=== PATIENT | male | born 1940 | race Caucasian/White ===

== ENCOUNTER 2019-06-01 00:58 | Observation (INO) | payer OTHER ==
--- OUTSIDE RECORDS SUMMARY | 2019-06-01 01:00 | XMS REPORT ---
:1940 [facility] Address [address] [place] [id number] Care Team Providers Name Role Phone Unavailable Unavailable Unavailable Problems This patient has no known problems. Allergies, Adverse Reactions, Alerts This patient has no known allergies or adverse reactions. Medications This patient has no known medications.
[2019-06-01] MEDS ORDERED: NA CHLORIDE 0.9% 1,000 ML ONE (01:22)
[2019-06-01 01:58] LABS: Protime INR 0.96
[2019-06-01 02:09] LABS: Absolute Lymphocytes (CBC) 0.6 K/uL (0.7-4.9); Basophils % 0.3 % (0-1.3); Lymphocytes % 3.7 % (15.3-44.8); MPV 8.9 fL (7.6-11.3)
[2019-06-01 02:11] LABS: ALT/SGPT 50 U/L (12-78); AST/SGOT 20 U/L (15-37); Albumin 3.7 g/dL (3.4-5.0); Alkaline Phosphatase 58 U/L (45-117); BUN Blood Urea Nitrogen 24 mg/dL (7-18); Bicarbonate 23 mmol/L (21-32); Bilirubin Direct 0.2 mg/dL (0-0.2); Bilirubin Total 0.7 mg/dL (0.2-1.0); Glucose Level 141 mg/dL (74-106); Lipase 411 U/L (73-393); Magnesium 1.8 mg/dL (1.8-2.4); NT PRO-BNP 126 pg/mL (<450); Protein, Total 7.4 g/dL (6.4-8.2); Sodium Level 139 mmol/L (136-145); Troponin (Emerg Dept Use Only) < 0.02 ng/mL (0.0-0.045)
[2019-06-01] MEDS ORDERED: METRONIDAZOLE 500mg IVPB 500 MG/100 ML BAG IV ONE (02:54)
[2019-06-01] MEDS ORDERED: CEFTRIAXONE/SWI 1gm 1 GM/10 ML SYR ONE (02:54)
[2019-06-01] MEDS ORDERED: CIPROFLOXACIN 400mg IV 400 MG/200 ML BAG IV ONE (02:54)
--- NOTE | 2019-06-01 03:44 | ER ---
Nurse's Notes [facility] Name: Vincenzo Mosquera Age: 78 yrs Sex: Male : 1940 Arrival Date: 06/01/2019 Time: 01:00 Bed 8 Private MD: Diagnosis: Abdominal tenderness;Unspecified kidney failure;Elevated white blood cell count;Vomiting;Diarrhea, unspecified;Diverticular disease of intestine;Diverticulosis of large intestine without perforation or abscess without bleeding Presentation: 05/31 01:04 Chief complaint: EMS states: WITH HISTORY OF DIVERTICULITIS. COMPLAINING OF ABDOMINAL rv PAIN, NAUSEA, VOMITING, AND DIARRHEA. GIVEN ZOFRAN BY EMT. PAIN SCALE DECREASED TO 2/10 UPON ARRIVAL. Coronavirus screen: Patient denies fever greater than 100.4F, cough, shortness of breath, or difficulty breathing. Proceed with normal triage process. Ebola Screen: No symptoms or risks identified at this time. Initial Sepsis Screen: Does the patient meet any 2 criteria? No. Patient's initial sepsis screen is negative. Does the patient have a suspected source of infection? No. Patient's initial sepsis screen is negative. Risk Assessment: Do you want to hurt yourself or someone else? Patient reports no desire to harm self or others. Onset of symptoms was May 31, 2019 at 21:00. 01:04 Method Of Arrival: EMS: [facility] 01:04 Acuity: MARIA EUGENIA 3 rv Triage Assessment: 01:07 General: Appears in no apparent distress. comfortable, Behavior is calm, cooperative. rv Pain: Complains of pain in abdomen Pain currently is 2 out of 10 on a pain scale. EENT: No signs and/or symptoms were reported regarding the EENT system. Neuro: Level of Consciousness is awake, alert, obeys commands, Oriented to person, place, time, situation. Cardiovascular: Patient's skin is warm and dry. Respiratory: Airway is patent. GI: Abdomen is round distended, Bowel sounds present X 4 quads. Abdomen is tender to palpation. Derm: Skin is intact. Historical: - Allergies: 01:07 No Known Allergies; rv - Home Meds: 02:31 metoprolol tartrate 50 mg Oral tab 1 tab once daily [Active]; simvastatin 20 mg Oral lp1 tab 1 tab once daily [Active]; omeprazole 20 mg Oral cpDR 1 cap once daily [Active]; pioglitazone 15 mg Oral tab 1 tab once daily [Active]; losartan 50 mg oral tab 1 tab nightly [Active]; gabapentin 100 mg Oral cap 1 cap nightly [Active]; pilocarpine HCl 5 mg oral tab 1 tab twice a day [Active]; aspirin 81 mg Oral TbEC 1 tab twice a day [Active]; Centrum Silver oral oral daily [Active]; Cinnamon 500 mg oral cap 2 cap twice a day [Active]; magnesium oxide 500 mg Oral tab nightly [Active]; glucosamine-chondroitin oral oral twice a day [Active]; CoQ-10 100 mg oral cap twice a day [Active]; coconut oil 1,000 mg oral cap twice a day [Active]; Fish Oil 1,000 mg oral cap twice a day [Active]; Vitamin D3 5,000 unit oral tab daily [Active]; - PMHx: 01:07 Diabetes - NIDDM; Hyperlipidemia; Hypertension; neuropathy; PROSTATE CANCER; rv Diverticulitis; - PSHx: 01:07 None; rv - Immunization history:: Adult Immunizations up to date. - Social history:: Smoking status: Patient/guardian denies using tobacco, the patient reports quitting approximately 30 years ago. - Family history:: not pertinent. Screenin:09 Abuse screen: Denies threats or abuse. Denies injuries from another. Nutritional rv screening: No deficits noted. Tuberculosis screening: No symptoms or risk factors identified. Fall Risk None identified. Assessment: 01:08 Reassessment: SEE TRIAGE NOTES. rv 01:39 Reassessment: finished oral contrast at 138am. rv 03:28 Reassessment: CT SCAN OF THE ABDOMEN DONE. AWAITING RESULT. PATIENT UPDATED ON THE rv BLOOD TEST RESULTS. 04:42 Reassessment: Patient appears in no apparent distress at this time. Patient and/or rv family updated on plan of care and expected duration. Pain level reassessed. Patient is alert, oriented x 3, equal unlabored respirations, skin warm/dry/pink. UPDATED ON THE PLAN OF ADMISSION. PATIENT AGREED. 07:25 Reassessment: Patient appears in no apparent distress at this time. Patient and/or em family updated on plan of care and expected duration. Pain level reassessed. Patient is alert, oriented x 3, equal unlabored respirations, skin warm/dry/pink. Patient denies pain at this time. Patient states symptoms have improved. Vital Signs: 01:04 BP 160 / 64; Pulse 80; Resp 19; Temp 99; Pulse Ox 98% on R/A; Weight 90.72 kg; Height 5 rv ft. 9 in. (175.26 cm); Pain 2/10; 01:35 BP 148 / 66; Pulse 77; Resp 18; Pulse Ox 99% ; rr5 02:00 BP 159 / 63; Pulse 86; Resp 19; Pulse Ox 99% on R/A; rv 02:30 BP 136 / 59; Pulse 76; Resp 21; Pulse Ox 98% on R/A; rv 03:00 BP 151 / 61; Pulse 73; Resp 18; Pulse Ox 97% on R/A; rv 04:00 BP 105 / 79; Pulse 77; Resp 18; Pulse Ox 98% on R/A; rv 06:56 BP 135 / 73; Pulse 80; Resp 18; Temp 98.6; Pulse Ox 98% on R/A; rv 07:25 BP 139 / 85; Pulse 70; Resp 16; Temp 97.8; Pulse Ox 100% on R/A; Pain 0/10; em 01:04 Body Mass Index 29.53 (90.72 kg, 175.26 cm) rv ED Course: 01:00 Patient arrived in ED. ds1 01:01 Antonio Doss, RN is Primary Nurse. rv 01:06 Triage completed. rv 01:07 Arm band placed on Patient placed in the treatment room, on a stretcher, on cardiac rv monitor, on pulse oximetry, Patient notified of wait time. 01:09 Placed in gown. Bed in low position. Call light in reach. Pulse ox on. NIBP on. rv 01:09 Maintain EMS IV. Dressing intact. Good blood return noted. Site clean \T\ dry. Gauge \T\ rv site: 22 G LEFT HAND. 01:13 Naif Willard MD is Attending Physician. jet 01:30 Inserted saline lock: 20 gauge in right forearm, using aseptic technique. Blood rr5 collected. 01:30 EKG done, by ED staff, reviewed by Naif Willard MD. rr5 02:34 XRAY Chest (1 view) In Process Unspecified. EDMS 03:21 Abdomen In Process Unspecified. EDMS 03:38 Rola Orozco MD is Hospitalizing Provider. jet 07:35 No provider procedures requiring assistance completed. Patient admitted, IV remains in em place. Administered Medications: 01:30 Drug: NS 0.9% 500 ml Route: IV; Rate: bolus; Site: right forearm; rr5 02:45 Follow up: IV Status: Completed infusion; IV Intake: 500ml rv 02:30 Drug: NS 0.9% 1000 ml Route: IV; Rate: 125 ml/hr; Site: right forearm; rr5 07:48 Follow up: IV Status: Completed infusion; IV Intake: 1000ml em 02:50 Drug: Rocephin 1 grams Route: IV; Rate: per protocol; Site: right forearm; rv 04:42 Follow up: IV Status: Completed infusion rv 06:57 Follow up: Response: No adverse reaction rv 02:55 Drug: Cipro 400 mg Volume: 200 ml; Route: IVPB; Infused Over: 60 mins; Site: right rv forearm; 04:41 Follow up: IV Status: Completed infusion; IV Intake: 200ml rv 03:04 Drug: Flagyl 500 mg Volume: 100 ml; Route: IVPB; Rate: 200 ml/hr; Infused Over: 30 rv mins; Site: left hand; 04:42 Follow up: IV Status: Completed infusion; IV Intake: 100ml rv 06:58 Follow up: Response: No adverse reaction rv Intake: 02:45 IV: 500ml; Total: 500ml. rv 04:41 IV: 200ml; Total: 700ml. rv 04:42 IV: 100ml; Total: 800ml. rv 07:48 IV: 1000ml; Total: 1800ml. em Outcome: 03:41 Decision to Hospitalize by Provider. jet 07:48 Admitted to Tele accompanied by tech, via wheelchair, room 230, with chart, Report em called to USHA CHRISTENSEN 07:48 Condition: good 07:48 Instructed on the need for admit, Demonstrated understanding of instructions. 07:56 Patient left the ED. em Signatures: Dispatcher [employer] Naif Borja MD MD cha Munoz, Edgar, RN RN em Abby Chand ds1 Lisa Bradley RN RN lp1 Antonio Doss RN RN rv Rodrigo Farley RN RN rr5 Corrections: (The following items were deleted from the chart) 06:57 06:57 IV Status: Completed infusion rv rv
--- NOTE | 2019-06-01 03:44 | EDPHYS ---
Physician Documentation [facility] Name: Vincenzo Mosquera Age: 78 yrs Sex: Male : 1940 Arrival Date: 06/01/2019 Time: 01:00 Bed 8 Private MD: ED Physician Naif Willard HPI: 05/31 01:19 This 78 yrs old Male presents to ER via EMS with complaints of Abdominal Pain.[facility] 01:19 The patient presents with abdominal pain in the lower abdomen, abdominal distention in jet the upper abdomen, in the lower abdomen. Onset: The symptoms/episode began/occurred 2 day(s) ago. The symptoms radiate to both flanks. Associated signs and symptoms: none. The symptoms are described as crampy. Modifying factors: The symptoms are alleviated by nothing, the symptoms are aggravated by nothing. Severity of pain: At its worst the pain was mild in the emergency department the pain is unchanged. The patient has not experienced similar symptoms in the past. Historical: - Allergies: :07 No Known Allergies; rv - Home Meds: 02:31 metoprolol tartrate 50 mg Oral tab 1 tab once daily [Active]; simvastatin 20 mg Oral lp1 tab 1 tab once daily [Active]; omeprazole 20 mg Oral cpDR 1 cap once daily [Active]; pioglitazone 15 mg Oral tab 1 tab once daily [Active]; losartan 50 mg oral tab 1 tab nightly [Active]; gabapentin 100 mg Oral cap 1 cap nightly [Active]; pilocarpine HCl 5 mg oral tab 1 tab twice a day [Active]; aspirin 81 mg Oral TbEC 1 tab twice a day [Active]; Centrum Silver oral oral daily [Active]; Cinnamon 500 mg oral cap 2 cap twice a day [Active]; magnesium oxide 500 mg Oral tab nightly [Active]; glucosamine-chondroitin oral oral twice a day [Active]; CoQ-10 100 mg oral cap twice a day [Active]; coconut oil 1,000 mg oral cap twice a day [Active]; Fish Oil 1,000 mg oral cap twice a day [Active]; Vitamin D3 5,000 unit oral tab daily [Active]; - PMHx: 01:07 Diabetes - NIDDM; Hyperlipidemia; Hypertension; neuropathy; PROSTATE CANCER; rv Diverticulitis; - PSHx: 01:07 None; rv - Immunization history:: Adult Immunizations up to date. - Social history:: Smoking status: Patient/guardian denies using tobacco, the patient reports quitting approximately 30 years ago. - Family history:: not pertinent. ROS: 01:19 Constitutional: Negative for fever, chills, and weight loss, Eyes: Negative for injury, jet pain, redness, and discharge, ENT: Negative for injury, pain, and discharge, Neck: Negative for injury, pain, and swelling, Cardiovascular: Negative for chest pain, palpitations, and edema, Respiratory: Negative for shortness of breath, cough, wheezing, and pleuritic chest pain, Back: Negative for injury and pain, : Negative for injury, bleeding, discharge, and swelling, MS/Extremity: Negative for injury and deformity, Skin: Negative for injury, rash, and discoloration, Neuro: Negative for headache, weakness, numbness, tingling, and seizure, Psych: Negative for depression, anxiety, suicide ideation, homicidal ideation, and hallucinations, Allergy/Immunology: Negative for hives, rash, and allergies, Endocrine: Negative for neck swelling, polydipsia, polyuria, polyphagia, and marked weight changes. 01:19 Abdomen/GI: Positive for abdominal pain, of the posterior aspect of left lateral abdomen, posterior aspect of right lateral abdomen, right lower quadrant and left lower quadrant. Exam: 01:19 Constitutional: This is a well developed, well nourished patient who is awake, alert, jet and in no acute distress. Head/Face: Normocephalic, atraumatic. Eyes: Pupils equal round and reactive to light, extra-ocular motions intact. Lids and lashes normal. Conjunctiva and sclera are non-icteric and not injected. Cornea within normal limits. Periorbital areas with no swelling, redness, or edema. ENT: Nares patent. No nasal discharge, no septal abnormalities noted. Tympanic membranes are normal and external auditory canals are clear. Oropharynx with no redness, swelling, or masses, exudates, or evidence of obstruction, uvula midline. Mucous membranes moist. Neck: Trachea midline, no thyromegaly or masses palpated, and no cervical lymphadenopathy. Supple, full range of motion without nuchal rigidity, or vertebral point tenderness. No Meningismus. Chest/axilla: Normal chest wall appearance and motion. Nontender with no deformity. No lesions are appreciated. Cardiovascular: Regular rate and rhythm with a normal S1 and S2. No gallops, murmurs, or rubs. Normal PMI, no JVD. No pulse deficits. Respiratory: Lungs have equal breath sounds bilaterally, clear to auscultation and percussion. No rales, rhonchi or wheezes noted. No increased work of breathing, no retractions or nasal flaring. Abdomen/GI: Soft, non-tender, with normal bowel sounds. No distension or tympany. No guarding or rebound. No evidence of tenderness throughout. Male : Normal genitalia with no discharge or lesions. Skin: Warm, dry with normal turgor. Normal color with no rashes, no lesions, and no evidence of cellulitis. MS/ Extremity: Pulses equal, no cyanosis. Neurovascular intact. Full, normal range of motion. Neuro: Awake and alert, GCS 15, oriented to person, place, time, and situation. Cranial nerves II-XII grossly intact. Motor strength 5/5 in all extremities. Sensory grossly intact. Cerebellar exam normal. Normal gait. Psych: Awake, alert, with orientation to person, place and time. Behavior, mood, and affect are within normal limits. 01:19 Back: pain, that is mild, that is moderate, ROM is normal, normal spinal alignment noted, CVA tenderness, is absent, vertebral tenderness, is not appreciated, muscle spasm, is not present. Vital Signs: 01:04 BP 160 / 64; Pulse 80; Resp 19; Temp 99; Pulse Ox 98% on R/A; Weight 90.72 kg; Height 5 rv ft. 9 in. (175.26 cm); Pain 2/10; 01:35 BP 148 / 66; Pulse 77; Resp 18; Pulse Ox 99% ; rr5 02:00 BP 159 / 63; Pulse 86; Resp 19; Pulse Ox 99% on R/A; rv 02:30 BP 136 / 59; Pulse 76; Resp 21; Pulse Ox 98% on R/A; rv 03:00 BP 151 / 61; Pulse 73; Resp 18; Pulse Ox 97% on R/A; rv 04:00 BP 105 / 79; Pulse 77; Resp 18; Pulse Ox 98% on R/A; rv 06:56 BP 135 / 73; Pulse 80; Resp 18; Temp 98.6; Pulse Ox 98% on R/A; rv 07:25 BP 139 / 85; Pulse 70; Resp 16; Temp 97.8; Pulse Ox 100% on R/A; Pain 0/10; em 01:04 Body Mass Index 29.53 (90.72 kg, 175.26 cm) rv MDM: 01:13 Patient medically screened. [facility] 01:21 Data reviewed: vital signs, nurses notes, lab test result(s), EKG, radiologic studies, [facility] CT scan, plain films. 05/31 01:14 Order name: Basic Metabolic Panel; Complete Time: 02:38 [facility] 05/31 01:14 Order name: CBC with Diff; Complete Time: 06:36 [facility] 05/31 01:14 Order name: LFT's; Complete Time: 02:38 [facility] 05/31 01:14 Order name: Magnesium; Complete Time: 02:38 [facility] 05/31 01:14 Order name: NT PRO-BNP; Complete Time: 02:38 [facility] 05/31 01:14 Order name: PT-INR; Complete Time: 02:38 [facility] 05/31 01:14 Order name: Troponin (emerg Dept Use Only); Complete Time: 02:38 [facility] 05/31 01:14 Order name: XRAY Chest (1 view) [facility] 05/31 01:14 Order name: Lipase; Complete Time: 02:38 [facility] 05/31 01:14 Order name: Urine Culture [facility] 05/31 02:12 Order name: Urine Dipstick--Ancillary (enter results); Complete Time: 06:36 mw2 05/31 02:28 Order name: Manual Differential; Complete Time: 06:36 EDAK 05/31 06:35 Order name: Comprehensive Metabolic Panel [facility] 05/31 06:35 Order name: Comprehensive Metabolic Panel [facility] 05/31 01:14 Order name: EKG; Complete Time: 01:17 [facility] 05/31 01:14 Order name: Cardiac monitoring; Complete Time: 01:23 [facility] 05/31 01:14 Order name: EKG - Nurse/Tech; Complete Time: 01:39 [facility] 05/31 01:14 Order name: IV Saline Lock; Complete Time: 01:23 [facility] 05/31 01:14 Order name: Labs collected and sent; Complete Time: 01:45 [facility] 05/31 01:14 Order name: O2 Per Protocol; Complete Time: 01:23 [facility] 05/31 01:14 Order name: O2 Sat Monitoring; Complete Time: 01:23 [facility] 05/31 02:48 Order name: Abdomen [facility] 05/31 06:37 Order name: CONS Pharmacy Consult [facility] 05/31 06:37 Order name: Clear Liquid [facility] 05/31 01:14 Order name: Urine Dipstick-Ancillary (obtain specimen); Complete Time: 02:46 [facility] Administered Medications: 01:30 Drug: NS 0.9% 500 ml Route: IV; Rate: bolus; Site: right forearm; rr5 02:45 Follow up: IV Status: Completed infusion; IV Intake: 500ml rv 02:30 Drug: NS 0.9% 1000 ml Route: IV; Rate: 125 ml/hr; Site: right forearm; rr5 07:48 Follow up: IV Status: Completed infusion; IV Intake: 1000ml em 02:50 Drug: Rocephin 1 grams Route: IV; Rate: per protocol; Site: right forearm; rv 04:42 Follow up: IV Status: Completed infusion rv 06:57 Follow up: Response: No adverse reaction rv 02:55 Drug: Cipro 400 mg Volume: 200 ml; Route: IVPB; Infused Over: 60 mins; Site: right rv forearm; 04:41 Follow up: IV Status: Completed infusion; IV Intake: 200ml rv 03:04 Drug: Flagyl 500 mg Volume: 100 ml; Route: IVPB; Rate: 200 ml/hr; Infused Over: 30 rv mins; Site: left hand; 04:42 Follow up: IV Status: Completed infusion; IV Intake: 100ml rv 06:58 Follow up: Response: No adverse reaction rv Disposition: 06/01/19 03:41 Hospitalization ordered by Rola Orozco for Inpatient Admission. Preliminary diagnosis are Abdominal tenderness, Unspecified kidney failure, Elevated white blood cell count, Vomiting, Diarrhea, unspecified, Diverticular disease of intestine, Diverticulosis of large intestine without perforation or abscess without bleeding. - Bed requested for Telemetry/MedSurg (Inpatient). - Status is Inpatient Admission. em - Condition is Fair. - Problem is new. - Symptoms have improved. Signatures: Dispatcher [employer] Naif Borja MD MD cha Munoz, Edgar RN RN em Lisa Bradley RN RN lp1 Naomie Boudreaux RN RN tl1 Naif Longo, PA PA cp Antonio Doss, RN RN rv Rodrigo Farley RN RN rr5 Corrections: (The following items were deleted from the chart) 02:47 01:17 Abdomen Pelvis W Con+CT.RAD.BRZ ordered. EDAK EDAK 04:36 03:41 Hospitalization Ordered by Rola Orozco MD for Inpatient Admission. Preliminary jet diagnosis is Abdominal tenderness; Unspecified kidney failure; Elevated white blood cell count; Vomiting; Diarrhea, unspecified. Bed requested for Telemetry/MedSurg (Inpatient). Status is Inpatient Admission. Condition is Fair. Problem is new. Symptoms have improved. jet 06:37 04:36 06/01/2019 03:41 Hospitalization Ordered by Rola Orozco MD for Inpatient tl1 Admission. Preliminary diagnosis is Abdominal tenderness; Unspecified kidney failure; Elevated white blood cell count; Vomiting; Diarrhea, unspecified; Diverticular disease of intestine; Diverticulosis of large intestine without perforation or abscess without bleeding. Bed requested for Telemetry/MedSurg (Inpatient). Status is Inpatient Admission. Condition is Fair. Problem is new. Symptoms have improved. jet 07:56 06:37 06/01/2019 03:41 Hospitalization Ordered by Rola Orozco MD for Inpatient em Admission. Preliminary diagnosis is Abdominal tenderness; Unspecified kidney failure; Elevated white blood cell count; Vomiting; Diarrhea, unspecified; Diverticular disease of intestine; Diverticulosis of large intestine without perforation or abscess without bleeding. Bed requested for Telemetry/MedSurg (Inpatient). Status is Inpatient Admission. Condition is Fair. Problem is new. Symptoms have improved. tl1
[2019-06-01 03:49] LABS: Blood Morphology Comment NOT SEEN (NOT SEEN); Platelet Estimate ADEQ
[2019-06-01 03:58] LABS: Urine Blood NEGATIVE (NEG); Urine Glucose NEGATIVE (NEG); Urine Protein 1+ (NEG); Urine Specific Gravity >1.030 (1.005-1.030); Urine pH 5.5 (5.0-7.0)
[2019-06-01] MEDS ORDERED: MORPHINE 2 MG/ML SYR IV PRN (06:33)
[2019-06-01] MEDS ORDERED: ONDANSETRON 4 MG/2 ML VIAL IV PRN (06:33)
[2019-06-01] MEDS ORDERED: ACETAMINOPHEN 500 MG TAB PO PRN (06:33)
[2019-06-01] MEDS: NA CHLORIDE 0.9% 1,000 ML IV SCH ×2 (07:00→10:37)
--- NOTE | 2019-06-01 07:04 | RAD REPORT ---
EXAM DESCRIPTION: RAD - Chest Single View - 06/01/2019 2:31 am CLINICAL HISTORY: ABDOMINAL DISTENTION COMPARISON: PA chest August 2016 TECHNIQUE: AP portable chest image was obtained 06/01/2019 2:31 am . FINDINGS: Lung volumes are low accentuating heart, vasculature and lung markings. No peripheral cons olidation or mass identified. Hilar regions within normal limits. No significant failure or volume ov erload. The very low lung volumes accentuate vasculature and lung markings potentially masking minima l interstitial edema or infiltrate. All No measurable pleural effusion and no pneumothorax. No acute bony abnormality seen. No acute aortic findings suspected. IMPRESSION: No acute cardiopulmonary process. Very shallow inspiration potentially masks early interstitial edema or infiltrate.
--- NOTE | 2019-06-01 09:42 | RAD REPORT ---
EXAM DESCRIPTION: CT - Abdomen Pelvis Wo Contrast - 06/01/2019 6:35 am CLINICAL HISTORY: The patient is 78 years old and is Male; ABD PAIN TECHNIQUE: Axial computed tomography images of the abdomen and pelvis without intravenous contrast. Sagittal and coronal reformatted images were created and reviewed. This CT exam was performed usi ng one or more of the following dose reduction techniques: automated exposure control, adjustment o f the mA and/or kV according to patient size, and/or use of iterative reconstruction technique. exposure control, adjustment of the mA and/or kV according to patient size, and/or use of iterative r econstruction technique. COMPARISON: CT of the abdomen and pelvis August 27, 2016 FINDINGS: REX BASES:L Unremarkable. No mass. No consolidation. ABDOMEN: LIVER: The liver is enlarged and diffusely fatty. GALLBLADDER AND BILE DUCTS: No calcified stones. No ductal dilation. PANCREAS: Unremarkable. No ductal dilation. SPLEEN: Several splenic granuloma are present. ADRENALS: Unremarkable. No mass. KIDNEYS AND URETERS: Several right renal cysts are present, at least one of which is hyperdense. These are similar to prior exam. The largest measures 1.3 cm. No follow-up imaging is recommended. T here is no hydronephrosis or hydroureter of either kidney. No obstructing renal or ureteral calculus is seen. STOMACH AND BOWEL: Oral contrast is present within the stomach. Oral contrast is noted throughou t the small bowel which is normal in caliber. Oral contrast and stool is noted throughout the colon. No evidence of bowel obstruction. No significant bowel wall thickening. Colonic diverticulosis is not ed, without associated inflammatory changes to suggest diverticulitis. PELVIS: APPENDIX: The appendix is normal in caliber without surrounding inflammation. BLADDER: The bladder is moderately distended. No stones. REPRODUCTIVE: Unremarkable as visualized. ABDOMEN and PELVIS: INTRAPERITONEAL SPACE: Unremarkable. No free air. No significant fluid collection. BONES/JOINTS: Minimal degenerative change of the spine is present. SOFT TISSUES: The soft tissues are normal. VASCULATURE: Unremarkable. No abdominal aortic aneurysm. LYMPH NODES: Unremarkable. No enlarged lymph nodes. IMPRESSION: Colonic diverticulosis without evidence of diverticulitis. Chronic findings as above. Electronically signeE by: Bernie Finch MD 06/01/2019 3:30 AM CDT Due to temporary technical issues with the PACS/Fluency reporting system, reports are being signed by the in house radiologist as a courtesy to ensure prompt reporting. The interpreting radiologist is f ully responsible for the content of the report.
--- NOTE | 2019-06-01 10:03 | EKG ---
Test Date: 2019-06-01 Test Time: 01:29:10 Label Printer: RR MEASUREMENT RESULTS: Intervals: Rate: 75 AR: 134 QRSD: 68 QT: 382 QTc: 426 [place]: P: 39 AR: 134 QRS: 14 T: 31 INTERPRETIVE STATEMENTS: Normal sinus rhythm Minimal voltage criteria for LVH, may be normal variant Nonspecific ST abnormality Abnormal ECG Compared to ECG 10/17/2012 02:43:53 Left ventricular hypertrophy now present Right-axis deviation no longer present ST (T wave) deviation still present Electronically Signed On 06-01-19 10:02:51 CDT by Rios Christianson
[2019-06-01 10:37] VITALS: BMI 29.5
[2019-06-01 10:55] VITALS: O2SAT 100
--- NOTE | 2019-06-01 11:55 | P.HP ---
Certification for Inpatient Patient admitted to: Observation With expected LOS: <2 Midnights Patient will require the following post-hospital care: None Practitioner: I am a practitioner with admitting privileges, knowledge of patient current condition, hospital course, and medical plan of care. Services: Services provided to patient in accordance with Admission requirements found in Title 42 Section 412.3 of the Code of Federal Regulations Patient History Date of Service: 06/01/19 Reason for admission: Abdominal pain; intractable nausea; persistent diarrhea History of Present Illness: Patient is a 78-year-old gentleman who came to the hospital with persistent nausea and abdominal pain. Patient started having some diarrhea. This worsened throughout the day so he came into the hospital for further evaluation. In the emergency room patient was started on antiemetics and IV hydration. Patient has CT of the abdomen that did not reveal any significant pathology except for some diverticulosis but no diverticulitis. Patient will be admitted to the hospital for treatment of what appears to be a viral gastroenteritis. Will start patient on clear liquid diet later today. If he tolerates that then anticipate discharge home in the next 24-48 hours. Allergies No Known Allergies Allergy (Unverified 10/17/12 08:15) Home Medications: Gabapentin [Neurontin] 100 mg PO DAILY 06/01/19 Losartan Potassium [Cozaar] 50 mg PO DAILY 06/01/19 Metoprolol Succinate [Toprol Xl] 50 mg PO DAILY 06/01/19 Omeprazole 20 mg PO DAILY 06/01/19 Pilocarpine HCl 1 tab PO DAILY 06/01/19 Pioglitazone [Actos*] 1 tab PO DAILY 06/01/19 Simvastatin 20 mg PO DAILY 06/01/19 - Past Medical/Surgical History Has patient received pneumonia vaccine in the past: Yes -: Diverticulitis -: HTN -: DM -: Neuropathy -: Prostate Cancer -: Colon Polyps Past Surgical History: Patient denies surgical history - Family History Father Family History: Reviewed- Non-Contributory - Social History Smoking Status: Former smoker Alcohol use: No CD- Drugs: No Review of Systems 10-point ROS is otherwise unremarkable Physical Examination - Vital Signs Temperature: 98.1 F Blood Pressure: 165/72 Pulse: 67 Respirations: 18 Pulse Ox (%): 96 - Physical Exam General: Alert, In no apparent distress, Oriented x3 HEENT: Atraumatic, PERRLA, Mucous membr. moist/pink, EOMI, Sclerae nonicteric Neck: Supple, 2+ carotid pulse no bruit, No LAD, Without JVD or thyroid abnormality Respiratory: Clear to auscultation bilaterally, Normal air movement Cardiovascular: Regular rate/rhythm, Normal S1 S2, No murmurs Gastrointestinal: Normal bowel sounds, Soft and benign, Non-distended, Tenderness Musculoskeletal: No clubbing, No swelling, No tenderness Integumentary: No rashes Neurological: Normal gait, Normal speech, Normal strength at 5/5 x4 extr, Normal tone, Normal affect Lymphatics: No axilla or inguinal lymphadenopathy - Studies Laboratory Data (last 24 hrs) 06/01/19 01:30: PT 11.3, INR 0.96 06/01/19 01:30: WBC 15.2 H, Hgb 14.7, Hct 44.0, Plt Count 219 06/01/19 01:30: Sodium 139, Potassium 4.0, BUN 24 H, Creatinine 1.63 H, Glucose 141 H, Magnesium 1.8, Total Bilirubin 0.7, AST 20, ALT 50, Alkaline Phosphatase 58, Lipase 411 H Assessment & Plan - Problems (Diagnosis) (1) Abdominal pain Current Visit: Yes Status: Acute Qualifiers: Abdominal location: generalized Qualified Code(s): R10.84 - Generalized abdominal pain (2) Nausea without vomiting Current Visit: Yes Status: Acute (3) Diarrhea Current Visit: Yes Status: Acute (4) Hypertension Current Visit: Yes Status: Acute Qualifiers: Hypertension type: essential hypertension Qualified Code(s): I10 - Essential (primary) hypertension (5) Type 2 diabetes mellitus Current Visit: Yes Status: Acute Qualifiers: Diabetes mellitus correction insulin use: without manager terminal use (6) Diverticulosis Current Visit: Yes Status: Acute (7) History of prostate cancer Current Visit: Yes Status: Acute - Plan Plan: 1. IV fluids and IV antibiotics 2. Stool studies 3. Outpatient GI consultation 4. Pain control 5. Outpatient colonoscopy 6. Repeat abdominal film if pain worsens to rule out perforation 7. GI and DVT prophylaxis Discharge Plan: Home - Advance Directives Does patient have a Living Will: No Does patient have a Durable POA for Healthcare: No - Code Status/Comfort Care Code Status Assessed: Yes Code Status: Full Code Critical Care: No Time Spent Managing PTS Care (In Minutes): 40
--- NOTE | 2019-06-01 13:23 | P.DS ---
Admission Date: 06/01/19 Discharge Date: 06/03/19 Disposition: ROUTINE DISCHARGE Discharge Condition: GOOD Reason for Admission: Abdominal pain; intractable nausea; persistent diarrhea Consultations: None - Problems (1) Abdominal pain Status: Acute Qualifiers: Abdominal location: generalized Qualified Code(s): R10.84 - Generalized abdominal pain (2) Hypertension Status: Acute Qualifiers: Hypertension type: essential hypertension Qualified Code(s): I10 - Essential (primary) hypertension (3) Type 2 diabetes mellitus Status: Acute Qualifiers: Diabetes mellitus recruitment internship insulin use: without recruitment internship use Hospital Course: Mr. Mosquera is 78-year-old male who presented with persistent nausea, vomiting and mild diarrhea. Patient's initial evaluation included CT of the abdomen which did not reveal any significant pathology except for some diverticulosis without diverticulitis. He was treated supportively with antibiotics, IV fluid and pain medication. He did improve and now tolerating oral intake. He will benefit from further outpatient studies including colonoscopy. 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 He remains hemodynamically stable for discharge. Vital Signs/Physical Exam: Temp Pulse Resp BP Pulse Ox 98.1 F 67 18 165/72 H 96 06/01/19 11:55 06/01/19 11:55 06/01/19 11:55 06/01/19 11:55 06/01/19 11:55 General: Alert, In no apparent distress HEENT: Atraumatic, PERRLA, EOMI Neck: Supple, JVD not distended Respiratory: Clear to auscultation bilaterally, Normal air movement Cardiovascular: Regular rate/rhythm, Normal S1 S2 Gastrointestinal: Normal bowel sounds, No tenderness Musculoskeletal: No tenderness Integumentary: No rashes Neurological: Normal speech, Normal tone, Normal affect Lymphatics: No axilla or inguinal lymphadenopathy Laboratory Data at Discharge: WBC 15.2 K/uL (4.3-10.9) H 06/01/19 01:30 Hgb 14.7 g/dL (13.6-17.9) 06/01/19 01:30 Hct 44.0 % (39.6-49.0) 06/01/19 01:30 Plt Count 219 K/uL (152-406) 06/01/19 01:30 PT 11.3 SECONDS (9.5-12.5) 06/01/19 01:30 INR 0.96 06/01/19 01:30 Sodium 139 mmol/L (136-145) 06/01/19 01:30 Potassium 4.0 mmol/L (3.5-5.1) 06/01/19 01:30 BUN 24 mg/dL (7-18) H 06/01/19 01:30 Creatinine 1.63 mg/dL (0.55-1.3) H 06/01/19 01:30 Glucose 141 mg/dL (74-106) H 06/01/19 01:30 Magnesium 1.8 mg/dL (1.8-2.4) 06/01/19 01:30 Total Bilirubin 0.7 mg/dL (0.2-1.0) 06/01/19 01:30 AST 20 U/L (15-37) 06/01/19 01:30 ALT 50 U/L (12-78) 06/01/19 01:30 Alkaline Phosphatase 58 U/L (45-117) 06/01/19 01:30 Lipase 411 U/L (73-393) H 06/01/19 01:30 Home Medications: Gabapentin [Neurontin*] 100 mg PO DAILY 06/01/19 Losartan Potassium [Cozaar*] 50 mg PO DAILY 06/01/19 Metoprolol Succinate [Toprol Xl*] 50 mg PO DAILY 06/01/19 Omeprazole 20 mg PO DAILY 06/01/19 Pilocarpine HCl 1 tab PO DAILY 06/01/19 Pioglitazone [Actos*] 1 tab PO DAILY 06/01/19 Simvastatin 20 mg PO DAILY 06/01/19 Diet: ADA Activity: Ad evelio Followup: Tobin Mar MD [Primary Care Provider] - 1-2 Days (please call to make an appointment. )
[2019-06-01 15:33] VITALS: BP 161/79; TEMP 98.3
== END 2019-06-01 15:51 | disposition home or self-care (01) ==
LOC: ER 00:58 → ERHOLD 06:48 → 2ND 07:40
PROVIDERS: ADMIT Hospitalist; ATTEND Hospitalist
DX: R10.84 Generalized abdominal pain (principal); I10 Essential (primary) hypertension; E11.40 Type 2 diabetes mellitus with diabetic neuropathy, unspecified; R11.0 Nausea; R19.7 Diarrhea, unspecified; K57.30 Diverticulosis of large intestine without perforation or abscess without bleeding; E78.5 Hyperlipidemia, unspecified; Z79.82 Long term (current) use of aspirin; Z79.899 Other long term (current) drug therapy; Z87.891 Personal history of nicotine dependence; Z85.46 Personal history of malignant neoplasm of prostate
CPT/HCPCS: 96365; 96367; 96368; 93005; 87088; 85025; 80048; 36415; 83735; 85610; 80076; 81003; 84484; 83690; 83880; 74176; 71045; 99285; J0696; J7030 ×2; J0744; G0378 ×2; 87086

== ENCOUNTER 2020-07-21 19:43 | Inpatient (IN) | payer OTHER ==
--- OUTSIDE RECORDS SUMMARY | 2020-07-21 19:46 | XMS REPORT | Continuity of Care Document ---
:1940 Author Organization [facility] t Address [address] [place] [address] Care Team Providers Name Role Phone Asked, Pcp Primary Care Physician Unavailable Ivan DE LA PAZ Attending Clinician Unavailable Erin Washington MD. Attending Clinician Ignacio DE LA PAZ Attending Clinician Unavailable Ever Attending Clinician Unavailable Pob, Lab Main Attending Clinician Unavailable Doctor Unassigned, Name Attending Clinician Unavailable Payers Payer Name Policy Type Policy Effective Date Expiration Date Sour ce Number MEDICAREMEDICARE PART [id number] 2004 [place] vladimir A AND 00:00:00 Worship [id number] [place] AND [id number] [facility] od[facility] AND [id number]/-TatiCommerayo al Problems This patient has no known problems. Allergies, Adverse Reactions, Alerts This patient has no known allergies or adverse reactions. Social History Social Habit Start Date Stop Date Quantity Comments Source Exposure to Not sure [place] [facility] SARS-CoV-2 (event) Sex Assigned At [birth year] [facility] ethodist 00:00:00 00:00:00 Medications Ordered Filled Start Stop Current Ordering Indication Dosage Frequency Signature Comments Components Source Medication Medication Date Date Medication? Clinician (SIG) Name Name levoFLOXaci 2020- No 750mg QD Take 1 Sd gilbert n 3-30 04-04 tablet Methodi (Levaquin) 00:00: 23:59 ([address] 750 MG 00 :00 total) by tablet mouth daily for 5 days. Take one tablet the night before procedure, then morning of procedure until gone. Vital Signs Vital Name Observation Time Observation Value Comments Source Systolic blood 2020-05-24 14:22:00 172 mm[Hg] Johnto n Worship pressure Diastolic blood 2020-05-24 14:22:00 80 mm[Hg] Allie on Worship pressure Heart rate 2020-05-24 14:22:00 71 /min Carlos Morgan Respiratory rate 2020-05-24 14:22:00 16 /min John ton [facility] Oxygen saturation in 2020-05-24 14:22:00 98 /min Carlos Morgan Arterial blood by Pulse oximetry Body height 2020-05-24 14:01:00 175.3 cm Carlos Morgan Body weight 2020-05-24 14:01:00 87.544 kg Carlos Morgan BMI 2020-05-24 14:01:00 28.50 kg/m2 Carlos Morgan Procedures Procedure Date / Time Performed Performing Clinician [facility] e BIOPSY PROSTATE 2020-07-15 00:00:00 Lizy Washington odist US NEEDLE BIOPSY 2020-07-09 14:51:17 Lizy Washington Met sven MRI PROSTATE WWO 2020-05-24 16:00:00 Lizy Washington Met sven CONTRAST ESTIMATED GFR 2020-05-24 14:22:00 Lizy Washington odist POC CREATININE 2020-05-24 14:22:00 Lizy Washington odist POC GLUCOSE 2020-05-24 14:16:00 Lizy Washington odmariusz Plan of Care Planned Activity Planned Date Details Comments Source Future Scheduled 2020-10-06 INFLUENZA VACCINE Monalisa martinez W[facility] 00:00:00 [code = INFLUENZA VACCINE] Future Scheduled 1989-11-20 SHINGLES VACCINES (#1) H oniel W[facility] Test 00:00:00 [code = SHINGLES VACCINES (#1)] Future Scheduled 1951 COVID-19 VACCINE (1) Víctor cardenas W[facility] Test 00:00:00 [code = COVID-19 VACCINE (1)] Future Scheduled 1949-11-20 DIABETES: RETINAL EYE Ho vladimir W[facility] Test 00:00:00 EXAM [code = DIABETES: RETINAL EYE EXAM] Future Scheduled 1949-11-20 DIABETIC FOOT EXAM [place] [facility] 00:00:00 [code = DIABETIC FOOT EXAM] Future Scheduled 1945-11-20 65+ PNEUMOCOCCAL [place] Worship Test 00:00:00 VACCINE (1 of 4 - PCV13) [code = 65+ PNEUMOCOCCAL VACCINE (1 of 4 - PCV13)] Encounters Start End Encounter Admission Attending Care Care Encounter Source Date/Time Date/Time Type Type Clinicians Facility Department ID 2020-07-09 2020-07-09 Outpatient [place] [id number] [place] 00:00:00 00:00:00 LIZY 218 Method i 2020-05-24 2020-05-24 [facility] [id number] [place] 00:00:00 00:00:00 LIZY 525 Method i 2020-05-13 2020-05-13 [facility] [id number] [place] 00:00:00 00:00:00 LIZY 088 Method i 2019-06-07 2019-06-07 Grants Director Ricky Crane [facility] [place] [id number] 14:00:07 14:15:07 Visit Lab Main [place] [id number] [place] [id number] Rachel [id number] 2019-06-07 2019-06-07 Orders Doctor CHLOE [id number] 00:00:00 00:00:00 Only Unassigned, AMIE [id number] [place] [facility] [id number] Results Test Description Test Time Test Comments Results Result [facility] e Comments US Needle Biopsy Ultrasound/ MRI Víctor ston 5 guided Prostate Worship 13:05:58 Needle BiopsyDiagnosis Elevated PSA/ CAP Previous Bx: Malignant/ Patient is on A/S Findings: Prostate echogenicity: HeterogenousCalcifica tions: Large focal Measurements: Whole Gland AP Diamter: 3.1 cm. Trasverse: 4.6 cm. Length 4.0 cm. Total Volume 31 mL. Nodule none --------Ultrasound guided biopsies under local anesthesia: 12 Template Biopsies. 5 Additional Biopsies of MRI JAMEEL PI-RADS 5 midline and right . : Comments:Fusion guided prostate needle BX was performed by and procedure was tolerated very well. Total 17 cores were taken under local anesthesia 2% lidocaine 5 cc on each side. MRI Prostate Wwo 2020-05- Jose, [place] on Contrast [address] 16:57:27 Incoming - 05/24/2020 5:00 PM CDT EXAMINATION: MRI PROSTATE WWO CONTRASTCLINICAL HISTORY: 79 years Male R97.20 Elevated prostate specific antigen (PSA), Elevated PSACOMPARISON: None.TECHNIQUE: Using a pelvic phased array coil, multiplanar, multisequence MRI of the pelvis was performed with a prostate-specific protocol with and without contrast. Diffusion weighted images and dynamic contrast enhanced images were performed. The examination was performed using a 3T magnet. IMAGE QUALITY: The image quality is satisfactory.FINDINGS :1. Size: The prostate gland measures 5.1 x 3.8 x 4.1 cm. Calculated prostatic volume (ellipsoid model) is 33 cc. 2. Central gland: There is BPH involving the transition zone. Homogeneously T2 hypointense and relatively noncircumscribed fullness anteriorly at the base corresponding with restricted diffusion, measuring 1.8 x 1.6 cm (series 5 image 11) suspicious for malignancy (PI-RADS 5).3. Peripheral zone: There is diffuse T2 hypointensity throughout the gland. Subtle more focal T2 hypointense fullness posterolaterally at the right apex measuring 1.4 cm (series 5 image 15) shows borderline diffusion restriction and early enhancement, PI-RADS 4. Very subtle vague 8 mm T2 hypointense fullness posteriorly in the left midgland with mild hypointensity on ADC map (series 8 image 12) is equivocal, PI-RADS 3.4. Seminal vesicles: Normal.5. Extracapsular extension: None6: Bladder: Normal.7. Lymph nodes: No suspicious lymph nodes.8. Musculoskeletal: No focal marrow replacing abnormality.9. Other: Small right and trace left inguinal hernias contain fat. Sigmoid colon diverticulosis.IMPRES WAN:1.8 cm anterior base TZ (PI-RADS 5).1.4 cm posterolateral right apex PZ (PI-RADS 4).0.8 cm posterior left midgland PZ (PI-RADS 3).Overall PI-RADS score: 5 PI-RADS score: The presence of a significant prostate cancer is:PI-RADS 1: Very low (Highly unlikely)PI-RADS 2: Low (Unlikely)PI-RADS 3: Intermediate (Equivocal)PI-RADS 4: High (Likely)PI-RADS 5: Very High (Highly likely)(All PI-RADS 3, 4 and 5 lesions are marked in DynaCAD for possible fusion biopsy)[id number] H
[2020-07-21 20:29] LABS: Absolute Lymphocytes (CBC) 0.6 K/uL (0.7-4.9); Basophils % 0.3 % (0-1.3); Hematocrit 42.4 % (39.6-49.0); Lymphocytes % 3.8 % (15.3-44.8); MPV 8.3 fL (7.6-11.3); RBC Red Blood Cell Count 4.79 M/uL (4.33-5.43)
[2020-07-21 20:36] LABS: Albumin 3.6 g/dL (3.4-5.0); Bilirubin Direct 0.2 mg/dL (0-0.2); Bilirubin Total 0.8 mg/dL (0.2-1.0); Potassium 3.9 mmol/L (3.5-5.1); Protein, Total 6.9 g/dL (6.4-8.2)
[2020-07-21] MEDS ORDERED: ONDANSETRON 4 MG/2 ML VIAL ONE (20:43)
[2020-07-21] MEDS ORDERED: MORPHINE 4 MG/ML SYR ONE ×2 (20:43→21:49)
[2020-07-21] MEDS ORDERED: NA CHLORIDE 0.9% 500 ML ONE (20:43)
--- NOTE | 2020-07-21 21:19 | RAD REPORT ---
EXAM DESCRIPTION: CT - Abdomen Pelvis W Contrast - 07/21/2020 8:59 pm CLINICAL HISTORY: ABD PAIN COMPARISON: CT ABD PELVIS W CONTRAST dated 10/17/2012 TECHNIQUE: Biphasic, helical CT imaging of the abdomen and pelvis was performed following 100 ml non -ionic IV contrast. No oral contrast administered. All CT scans are performed using dose optimization technique as appropriate and may include automated exposure control or mA/KV adjustment according to patient size. FINDINGS: No suspicious findings in the lung bases. Liver shows diffuse fatty infiltration with no focal liver parenchymal lesion. Spleen and pancreas sh ow no suspicious findings. Gallbladder and biliary tree are also without suspicious finding. Symmetric renal function is seen with no hydronephrosis or suspicious renal mass. No pyelonephritis o r acute parenchymal process. No bladder abnormalities. No significant adrenal finding or change. Sully ent has multiple small benign cysts in the mid and lower pole of the right kidney. Stomach is distended by food. No gastric wall thickening or mass. Gastric outlet obstruction is not s uspected. Duodenum is normal in diameter. The jejunum and ileum are fluid-filled without dilatation, mass or focal abnormality seen. The appendix is normal. There is fluid present in colon from cecum to descending colon. Prominent diverticulosis is present without diverticulitis. No free air, free fluid or inflammatory stranding. No hernia, mass or bulky lymphadenopathy. Disc and bone degenerative changes are present. IMPRESSION: Ileus or diffuse gastroenteritis pattern. No obstruction, mass or focal bowel abnormalit y identified. Diffuse fatty infiltration of the liver.
[2020-07-21 21:21] LABS: SARS-COV-2 RT PCR NEGATIVE (NEGATIVE)
[2020-07-21] MEDS ORDERED: PROMETHAZINE INJ 25 MG/ML AMP ONE (21:49)
[2020-07-21 23:23] LABS: Blood Morphology Comment NOT SEEN (NOT SEEN); Platelet Estimate ADEQ
--- NOTE | 2020-07-22 00:42 | ER ---
Nurse's Notes [facility] Name: Vincenzo Mosquera Age: 79 yrs Sex: Male : 1940 Arrival Date: 07/21/2020 Time: 19:50 Bed 27 Private MD: Diagnosis: Ileus, unspecified;Diarrhea, unspecified;Vomiting, unspecified Presentation: 07/21 20:09 Chief complaint: Patient states: Abdominal pain and diarrhea since 1800 today. Patient aj1 states that he has a history of diverticulitis and this feels the same as his previous flare ups. Coronavirus screen: Client denies travel out of the [place] in the last 14 days. At this time, the client does not indicate any symptoms associated with coronavirus-19. Ebola Screen: Patient denies travel to an Ebola-affected area in the 21 days before illness onset. Initial Sepsis Screen: Does the patient meet any 2 criteria? No. Patient's initial sepsis screen is negative. Does the patient have a suspected source of infection? Yes: Acute abdominal pain. Risk Assessment: Do you want to hurt yourself or someone else? Patient reports no desire to harm self or others. Onset of symptoms was July 21, 2020 at 18:00. 20:09 Method Of Arrival: EMS aj1 20:09 Acuity: MARIA EUGENIA 3 aj1 Triage Assessment: 20:13 General: Appears in no apparent distress. uncomfortable, Behavior is calm, cooperative, aj1 appropriate for age. Pain: Complains of pain in abdomen Pain currently is 10 out of 10 on a pain scale. Neuro: Level of Consciousness is awake, alert, obeys commands. GI: Abdomen is round Reports lower abdominal pain, upper abdominal pain, diarrhea, nausea. Historical: - Allergies: 20:13 No Known Allergies; aj1 - Home Meds: 20:13 Centrum Silver Oral daily [Active]; aspirin 81 mg Oral TbEC 1 tab twice a day [Active]; aj1 Cinnamon 500 mg Oral cap 2 cap twice a day [Active]; magnesium oxide 500 mg Oral tab nightly [Active]; Super B Complex + C 150 mg oral tab daily [Active]; glucosamine-chondroitin Oral twice a day [Active]; CoQ-10 100 mg Oral cap twice a day [Active]; coconut oil 1,000 mg Oral cap twice a day [Active]; Fish Oil 1,000 mg Oral cap twice a day [Active]; Vitamin D3 5,000 unit Oral tab daily [Active]; prevagen daily [Active]; metoprolol tartrate 75 mg oral tab 1 tab once daily [Active]; simvastatin 20 mg Oral tab 1 tab once daily [Active]; omeprazole 20 mg Oral cpDR 1 cap once daily [Active]; pioglitazone 15 mg Oral tab 1 tab once daily [Active]; losartan 100 mg oral tab 1 tab once daily [Active]; gabapentin 100 mg Oral cap 1 cap nightly [Active]; pilocarpine HCl 5 mg Oral tab 1 tab twice a day [Active]; - PMHx: 20:13 Diabetes - NIDDM; Diverticulitis; Hyperlipidemia; Hypertension; neuropathy; Prostate aj1 Cancer; - Immunization history:: Adult Immunizations up to date. Screenin:15 Abuse screen: Denies threats or abuse. Denies injuries from another. Nutritional aj1 screening: No deficits noted. Tuberculosis screening: No symptoms or risk factors identified. Fall Risk IV access (20 points). Total Willis Fall Scale indicates No Risk (0-24 pts). Assessment: 20:15 General: Appears in no apparent distress. uncomfortable, Behavior is cooperative, aj1 restless. Pain: Complains of pain in abdomen Pain does not radiate. Pain currently is 10 out of 10 on a pain scale. Quality of pain is described as aching, sharp, Pain began 2 hours ago. Neuro: Level of Consciousness is awake, alert, obeys commands, Oriented to person, place, time, situation. Cardiovascular: Patient's skin is warm and dry. Respiratory: Airway is patent Respiratory effort is even, unlabored, Respiratory pattern is regular, symmetrical. GI: Abdomen is round Bowel sounds present X 4 quads. Abd is soft X 4 quads Abdomen is tender to palpation X 4 quads. Reports diarrhea, nausea. : No signs and/or symptoms were reported regarding the genitourinary system. EENT: No signs and/or symptoms were reported regarding the EENT system. Derm: No signs and/or symptoms reported regarding the dermatologic system. Skin is pink, warm \T\ dry. normal. Musculoskeletal: No signs and/or symptoms reported regarding the musculoskeletal system. Circulation, motion, and sensation intact. 21:15 Reassessment: Patient appears in no apparent distress at this time. Patient and/or aj1 family updated on plan of care and expected duration. Pain level reassessed. Patient states feeling better. Patient states symptoms have improved. 21:35 Reassessment: Patient states that his pain and nausea are coming back. Notified Erik Beltran NP. Order received. 22:05 Reassessment: Patient and/or family updated on plan of care and expected duration. Pain aj1 level reassessed. General: Appears in no apparent distress. comfortable, Behavior is calm, cooperative, appropriate for age. Neuro: Level of Consciousness is awake, alert, obeys commands, Oriented to person, place, time, situation. Cardiovascular: Patient's skin is warm and dry. Respiratory: Airway is patent Respiratory effort is even, unlabored, Respiratory pattern is regular, symmetrical. GI: Abdomen is round. Derm: Skin is pink, warm \T\ dry. normal. 22:15 Reassessment: Patient vomiting. Erik Beltran NP at bedside. At this time the plan of [facility] care is to monitor patient to see if Phenergan gives relief. 23:15 Reassessment: Patient appears in no apparent distress at this time. Patient and/or aj1 family updated on plan of care and expected duration. Pain level reassessed. Patient is alert, oriented x 3, equal unlabored respirations, skin warm/dry/pink. No vomiting since previous episode, notified Erik Beltran NP who will speak to the patient. 07/22 00:36 Reassessment: Patient is vomiting again. Erik Beltran NP aware and plans to admit [facility] patient. 00:52 Reassessment: Gregg Tierney NP at bedside to evaluate patient. [facility] 01:45 Reassessment: Patient and/or family updated on plan of care and expected duration. Pain aj1 level reassessed. General: Appears in no apparent distress. Behavior is calm, cooperative, appropriate for age. Neuro: Level of Consciousness is awake, alert, obeys commands, Oriented to person, place, time, situation. Cardiovascular: Patient's skin is warm and dry. Respiratory: Airway is patent Respiratory effort is even, unlabored, Respiratory pattern is regular, symmetrical. GI: Abdomen is round. Derm: Skin is pink, warm \T\ dry. normal. Musculoskeletal: Circulation, motion, and sensation intact. Vital Signs: 07/21 20:02 BP 159 / 63; Pulse 63; Resp 20; Temp 98.3; Pulse Ox 99% on R/A; dh4 21:00 BP 153 / 72; Pulse 72; Resp 16; Pulse Ox 98% on R/A; aj1 22:00 BP 155 / 68; Pulse 70; Resp 18; Pulse Ox 99% on R/A; aj1 23:00 BP 167 / 60; Pulse 71; Resp 18; Pulse Ox 100% on R/A; aj1 07/22 02:10 BP 158 / 65; Pulse 78; Resp 18; Pulse Ox 98% ; aj1 ED Course: 07/21 19:50 Patient arrived in ED. mw2 19:58 Brian Beltran NP is PHCP. pm1 19:58 Rolando Ford MD is Attending Physician. pm1 20:08 Yuli Smith, RN is Primary Nurse. aj1 20:10 Triage completed. aj1 20:13 Arm band placed on. aj1 20:15 Patient has correct armband on for positive identification. Bed in low position. Call aj1 light in reach. ekg monitor on. Pulse ox on. NIBP on. 20:15 No provider procedures requiring assistance completed. Maintain EMS IV. Dressing aj1 intact. Good blood return noted. Site clean \T\ dry. Gauge \T\ site: 20 g right AC. 21:00 CT Abd/Pelvis - IV Contrast Only In Process Unspecified. EDMS 07/22 00:42 Rodrigo Oliveira MD is Hospitalizing Provider. pm1 01:54 NGT: inserted 14 Fr. via left nare. verified placement of air over stomach, to aj1 intermittent suction. Returned gastric contents. Patient tolerated well. 09:49 Primary Nurse role handed off by Yuli Smith, RN sv Administered Medications: 07/21 20:40 Drug: NS 0.9% 500 ml Volume: 500 ml; Route: IV; Rate: 1 bolus; Site: right antecubital; aj1 20:41 Drug: morphine 4 mg {Note: RASS score 1, patient is restless.} Route: IVP; Site: right aj1 antecubital; 20:41 Drug: Zofran (Ondansetron) 4 mg Route: IVP; Site: right antecubital; aj1 21:50 Drug: morphine 4 mg Route: IVP; Site: right antecubital; aj1 21:51 Drug: Phenergan (promethazine) 12.5 mg Route: IVP; Site: right antecubital; aj1 07/22 01:55 Drug: Cipro (ciprofloxacin) 400 mg Volume: 200 ml; Route: IVPB; Infused Over: 60 mins; aj1 Site: right antecubital; 01:55 Drug: Flagyl (metroNIDAZOLE) 500 mg Volume: 100 ml; Route: IVPB; Rate: 200 ml/hr; aj1 Infused Over: 30 mins; Site: right antecubital; Outcome: 00:42 Decision to Hospitalize by Provider. pm1 18:18 Patient left the ED. sv Signatures: Dispatcher [employer] EDMS Yuli Smith RN RN aj1 Jackie Rosenbaum RN RN sv Marinas, Patrick, NP [employer] pm1 Kelly Verduzco 2 Lukas Quintero 4 Corrections: (The following items were deleted from the chart) 07/21 20:40 20:40 NS 0.9% 500 ml 500 ml IV at 1 bolus in left forearm 500 ml aj1 aj 22:06 22:04 Reassessment: Patient states that his pain and nausea are coming back. Notified aj1 Erik Beltran NP. Order received aj1
--- NOTE | 2020-07-22 00:43 | EDPHYS ---
Physician Documentation [facility] Name: Vincenzo Mosquera Age: 79 yrs Sex: Male : 1940 Arrival Date: 07/21/2020 Time: 19:50 Bed 27 Private MD: ED Physician Rolando Ford HPI: 07/21 21:06 This 79 yrs old Male presents to ER via EMS with complaints of Abdominal Pain.pm1 21:06 The patient presents with abdominal pain. Onset: The symptoms/episode began/occurred pm1 today. The symptoms do not radiate. Associated signs and symptoms: Pertinent positives: nausea, vomiting, and diarrhea, Pertinent negatives: chest pain, constipation, dysuria, fever, shortness of breath. The symptoms are described as crampy. Modifying factors: The symptoms are alleviated by nothing, the symptoms are aggravated by nothing. Severity of pain: in the emergency department the pain is unchanged. The patient has experienced a previous episode, feels similar to his prior diverticulitis. The patient has not recently seen a physician. Historical: - Allergies: 20:13 No Known Allergies; aj1 - Home Meds: 20:13 Centrum Silver Oral daily [Active]; aspirin 81 mg Oral TbEC 1 tab twice a day [Active]; aj1 Cinnamon 500 mg Oral cap 2 cap twice a day [Active]; magnesium oxide 500 mg Oral tab nightly [Active]; Super B Complex + C 150 mg oral tab daily [Active]; glucosamine-chondroitin Oral twice a day [Active]; CoQ-10 100 mg Oral cap twice a day [Active]; coconut oil 1,000 mg Oral cap twice a day [Active]; Fish Oil 1,000 mg Oral cap twice a day [Active]; Vitamin D3 5,000 unit Oral tab daily [Active]; prevagen daily [Active]; metoprolol tartrate 75 mg oral tab 1 tab once daily [Active]; simvastatin 20 mg Oral tab 1 tab once daily [Active]; omeprazole 20 mg Oral cpDR 1 cap once daily [Active]; pioglitazone 15 mg Oral tab 1 tab once daily [Active]; losartan 100 mg oral tab 1 tab once daily [Active]; gabapentin 100 mg Oral cap 1 cap nightly [Active]; pilocarpine HCl 5 mg Oral tab 1 tab twice a day [Active]; - PMHx: 20:13 Diabetes - NIDDM; Diverticulitis; Hyperlipidemia; Hypertension; neuropathy; Prostate aj1 Cancer; - Immunization history:: Adult Immunizations up to date. ROS: 21:06 Constitutional: Negative for fever, chills, and weight loss, Eyes: Negative for injury, pm1 pain, redness, and discharge, Cardiovascular: Negative for chest pain, palpitations, and edema, Respiratory: Negative for shortness of breath, cough, wheezing, and pleuritic chest pain. 21:06 Back: Negative for injury and pain, : Negative for injury, bleeding, discharge, and swelling, MS/Extremity: Negative for injury and deformity, Skin: Negative for injury, rash, and discoloration, Neuro: Negative for headache, weakness, numbness, tingling, and seizure. 21:06 Abdomen/GI: Positive for abdominal pain, nausea, vomiting, and diarrhea. Exam: 21:06 Constitutional: This is a well developed, well nourished patient who is awake, alert, pm1 and in no acute distress. Head/Face: Normocephalic, atraumatic. 21:06 Respiratory: Lungs have equal breath sounds bilaterally, clear to auscultation and percussion. No rales, rhonchi or wheezes noted. No increased work of breathing, no retractions or nasal flaring. Back: No spinal tenderness. No costovertebral tenderness. Full range of motion. Skin: Warm, dry with normal turgor. Normal color with no rashes, no lesions, and no evidence of cellulitis. MS/ Extremity: Pulses equal, no cyanosis. Neurovascular intact. Full, normal range of motion. 21:06 Eyes: Exam is negative for acute changes, Periorbital structures: appear normal, Pupils: no acute changes, Extraocular movements: no acute changes, Conjunctiva: normal, Lids and lashes: appear normal. 21:06 Cardiovascular: Exam negative for acute changes, Rate: normal, Rhythm: regular, Pulses: no pulse deficits are appreciated, Edema: is not appreciated. 21:06 Abdomen/GI: Inspection: obese Palpation: soft, in all quadrants, moderate abdominal tenderness, in the right upper quadrant and left upper quadrant, rebound tenderness, is not appreciated. 21:06 Neuro: Orientation: is normal, Mentation: is normal, Motor: is normal, moves all fours. Vital Signs: 20:02 BP 159 / 63; Pulse 63; Resp 20; Temp 98.3; Pulse Ox 99% on R/A; dh4 21:00 BP 153 / 72; Pulse 72; Resp 16; Pulse Ox 98% on R/A; aj1 22:00 BP 155 / 68; Pulse 70; Resp 18; Pulse Ox 99% on R/A; aj1 23:00 BP 167 / 60; Pulse 71; Resp 18; Pulse Ox 100% on R/A; aj1 07/22 02:10 BP 158 / 65; Pulse 78; Resp 18; Pulse Ox 98% ; aj1 MDM: 07/21 20:04 Patient medically screened. pm1 07/22 00:41 Data reviewed: vital signs. Data interpreted: Pulse oximetry: on room air is 100 %. pm1 Interpretation: normal. Counseling: I had a detailed discussion with the patient and/or guardian regarding: the historical points, exam findings, and any diagnostic results supporting the discharge/admit diagnosis, lab results, radiology results, the need for further work-up and treatment in the hospital. 00:51 Physician consultation: Colt PAYTON was contacted at 00:41, regarding admission, pm1 patient's condition, in the emergency department to see patient at 00:51. 07/21 20:04 Order name: Basic Metabolic Panel pm1 07/21 20:04 Order name: CBC with Diff pm1 07/21 20:04 Order name: Hepatic Function; Complete Time: 21:22 pm1 07/21 20:04 Order name: Lipase; Complete Time: 21:22 pm1 07/21 20:04 Order name: Basic Metabolic Panel; Complete Time: 21:22 EDMS 07/21 20:04 Order name: CBC with Automated Diff; Complete Time: 23:47 EDMS 07/21 20:34 Order name: Manual Differential; Complete Time: 23:47 EDMS 07/21 21:21 Order name: COVID-19/FLU A+B; Complete Time: 21:22 EDMS 07/22 10:08 Order name: CBC with Automated Diff; Complete Time: 00:21 EDMS 07/22 10:18 Order name: Comprehensive Metabolic Panel; Complete Time: 00:21 EDMS 07/22 10:18 Order name: Magnesium; Complete Time: 00:21 EDMS 07/22 10:26 Order name: Glucose, Ancillary Testing; Complete Time: 00:21 EDMS 07/21 20:04 Order name: IV Saline Lock; Complete Time: 20:16 pm1 07/21 20:04 Order name: Labs collected and sent; Complete Time: 20:16 pm1 07/21 20:04 Order name: CT Abd/Pelvis - IV Contrast Only; Complete Time: 21:22 pm1 07/22 00:40 Order name: NG Tube; Complete Time: 01:55 pm1 07/22 07:52 Order name: RAD; Complete Time: 00:21 EDMS 07/22 12:13 Order name: Glucose, Ancillary Testing; Complete Time: 00:21 EDMS 07/22 12:34 Order name: CBC Smear Scan; Complete Time: 00:21 EDMS 07/22 17:53 Order name: Glucose, Ancillary Testing; Complete Time: 00:21 EDMS Administered Medications: 07/21 20:40 Drug: NS 0.9% 500 ml Volume: 500 ml; Route: IV; Rate: 1 bolus; Site: right antecubital; aj 20:41 Drug: morphine 4 mg {Note: RASS score 1, patient is restless.} Route: IVP; Site: right aj1 antecubital; 20:41 Drug: Zofran (Ondansetron) 4 mg Route: IVP; Site: right antecubital; aj1 21:50 Drug: morphine 4 mg Route: IVP; Site: right antecubital; aj1 21:51 Drug: Phenergan (promethazine) 12.5 mg Route: IVP; Site: right antecubital; [facility] 07/22 01:55 Drug: Cipro (ciprofloxacin) 400 mg Volume: 200 ml; Route: IVPB; Infused Over: 60 mins; aj1 Site: right antecubital; 01:55 Drug: Flagyl (metroNIDAZOLE) 500 mg Volume: 100 ml; Route: IVPB; Rate: 200 ml/hr; aj1 Infused Over: 30 mins; Site: right antecubital; Disposition: 19:09 Co-signature as Attending Physician, Rolando Ford MD. pkl Disposition: 07/22/20 00:42 Hospitalization ordered by Rodrigo Oliveira for Inpatient Admission. Preliminary diagnosis are Ileus, unspecified, Diarrhea, unspecified, Vomiting, unspecified. - Bed requested for Telemetry/MedSurg (Inpatient). - Status is Inpatient Admission. sv - Condition is Stable. - Problem is new. - Symptoms have improved. Signatures: Dispatcher [employer] [facility] Yuli Smith RN RN aj1 Jackie Rosenbaum RN RN sv Rolando Ford MD MD pkl Brian Beltran, FEE CLERK FEE CLERK pm1 Kelly Verduzco mw2 Corrections: (The following items were deleted from the chart) 07/21 20:30 20:05 CORONAVIRUS+MR.LAB.BRZ ordered. [facility] 20:30 20:05 Influenza Screen (A \T\ B)+BA.LAB.BRZ ordered. [facility] 07/22 01:21 00:42 Hospitalization Ordered by Rodrigo Oliveira MD for Inpatient Admission. Preliminary mw2 diagnosis is Ileus, unspecified; Diarrhea, unspecified; Vomiting, unspecified. Bed requested for Telemetry/MedSurg (Inpatient). Status is Inpatient Admission. Condition is Stable. Problem is new. Symptoms have improved. pm1 16:42 01:21 07/22/2020 00:42 Hospitalization Ordered by Rodrigo Oliveira MD for Inpatient sv Admission. Preliminary diagnosis is Ileus, unspecified; Diarrhea, unspecified; Vomiting, unspecified. Bed requested for [facility] ER HOLD. Status is Inpatient Admission. Condition is Stable. Problem is new. Symptoms have improved. mw2 18:18 16:42 07/22/2020 00:42 Hospitalization Ordered by Rodrigo Oliveira MD for Inpatient sv Admission. Preliminary diagnosis is Ileus, unspecified; Diarrhea, unspecified; Vomiting, unspecified. Bed requested for Telemetry/MedSurg (Inpatient). Status is Inpatient Admission. Condition is Stable. Problem is new. Symptoms have improved. sv
--- NOTE | 2020-07-22 01:38 | P.HP ---
Certification for Inpatient Patient admitted to: Inpatient With expected LOS: >2 Midnights Patient will require the following post-hospital care: None Practitioner: I am a practitioner with admitting privileges, knowledge of patient current condition, hospital course, and medical plan of care. Services: Services provided to patient in accordance with Admission requirements found in Title 42 Section 412.3 of the Code of Federal Regulations <ChonjuliColt - Last Filed: 07/22/20 01:33> Patient History Date of Service: 07/22/20 Reason for admission: Ileus History of Present Illness: 79-year-old male with history of diabetes mellitus type 2, hypertension, hyperlipidemia, prostate cancer, CKD 3 presents emergency depart ment for vomiting. Son at bedside reports father went to a today, was feeling well prior to that, ate some barbecue in when he got home he began vomiting. Patient has been vomiting persistently with abdominal pain, distention since then. Patient with vomiting refractory to multiple rounds of anti emetics medications in the emergency department. Labs significant for white blood cell count 16.6 with left shift and 5% bands, chemistry with 1.51 creatinine and GFR 45 which is similar to patient's baseline. Lipase 452. CT abdomen pelvis demonstrates stomach distended bath, impression is ileus or diffuse gastroenteritis without obstruction mass or focal abnormality, diffuse fatty liver. As patient was with refractory vomiting, NGT was inserted while patient was in the emergency department, ED provider wishes to admit for further evaluation and management of ileus. - Past Medical/Surgical History -: Diverticulitis -: HTN -: DM -: Neuropathy -: Prostate Cancer -: Colon Polyps -: none Psychosocial/ Personal History: Patient lives at home with his and is retired - Family History Family History: Reviewed- Non-Contributory - Social History Smoking Status: Former smoker Alcohol use: No CD- Drugs: No Caffeine use: Yes Place of Residence: Home <Colt Tierney - Last Filed: 07/22/20 01:33> Date of Service: 07/22/20 <Rodrigo Oliveira - Last Filed: 07/22/20 18:00> Allergies No Known Allergies Allergy (Verified 07/22/20 06:29) Home Medications: Gabapentin [Neurontin*] 100 mg PO DAILY 06/01/19 Losartan Potassium [Cozaar*] 100 mg PO DAILY 06/01/19 Omeprazole 20 mg PO DAILY 06/01/19 Pilocarpine HCl 1 tab PO DAILY 06/01/19 Pioglitazone [Actos*] 1 tab PO DAILY 06/01/19 Simvastatin 20 mg PO DAILY 06/01/19 Metoprolol Tartrate 75 mg PO DAILY 07/22/20 Tamsulosin [Flomax*] 0.4 mg PO DAILY 07/22/20 Review of Systems 10-point ROS is otherwise unremarkable Gastrointestinal: Nausea, Vomiting, Abdominal Pain <Colt Tierney - Last Filed: 07/22/20 01:33> Physical Examination - Physical Exam General: Alert, In no apparent distress, Oriented x3 HEENT: Atraumatic, Normocephalic Neck: Supple Respiratory: Clear to auscultation bilaterally, Normal air movement Cardiovascular: No edema, Normal S1 S2 Capillary refill: <2 Seconds Gastrointestinal: Hypoactive, No masses, No rebound, No guarding, Distended, Tenderness (Mild epigastric tenderness noted on exam) Musculoskeletal: No contractures, No erythema, No tenderness Integumentary: No tenderness/swelling, No erythema, No warmth Neurological: Normal speech, Normal strength at 5/5 x4 extr, Normal tone, Sensation intact - Studies Laboratory Data (last 24 hrs) 07/21/20 20:05: WBC 16.60 H, Hgb 14.0, Hct 42.4, Plt Count 269 07/21/20 20:05: Sodium 141, Potassium 3.9, BUN 18, Creatinine 1.51 H, Glucose 104, Total Bilirubin 0.8, AST 27, ALT 45, Alkaline Phosphatase 59, Lipase 452 H <Colt Tierney - Last Filed: 07/22/20 01:33> - Studies Laboratory Data (last 24 hrs) 07/21/20 20:05: WBC 16.60 H, Hgb 14.0, Hct 42.4, Plt Count 269 07/21/20 20:05: Sodium 141, Potassium 3.9, BUN 18, Creatinine 1.51 H, Glucose 104, Total Bilirubin 0.8, AST 27, ALT 45, Alkaline Phosphatase 59, Lipase 452 H <Rodrigo Oliveira - Last Filed: 07/22/20 18:00> Assessment and Plan - Plan Assessment Abdominal pain, vomiting, leukocytosis secondary to suspected ileus versus gastroenteritis CKD 3 Diabetes mellitus type 2 Hypertension, hyperlipidemia, prostate cancer Plan Abdominal pain, vomiting, leukocytosis secondary to suspected ileus versus gastroenteritis: Vomiting refractory to multiple rounds of anti emetics. NGT to be inserted in place to low intermittent wall suction. General surgery consulted. Elevated white blood cell count, continue with IV Cipro/Flagyl, Continue with IV fluids, p.r.n. pain medications and anti emetics. Abdominal x- ray in the morning. DVT prophylaxis with Lovenox 40 mg subcutaneous once daily. CKD 3: Stable continue to monitor. Diabetes mellitus type 2: Q.6h Accu-Cheks, sliding scale insulin. Hypertension, hyperlipidemia, prostate cancer: Will continue home medications when patient is tolerating p.o.. Patient currently being evaluated for prostate cancer Plan of Care. Discharge Plan: Home Plan to discharge in: 48 Hours - Advance Directives Does patient have a Living Will: No Does patient have a Durable POA for Healthcare: No - Code Status/Comfort Care Code Status Assessed: Yes (Full code) Critical Care: No Time Spent Managing Pts Care (In Minutes): 55 <Colt Tierney - Last Filed: 07/22/20 01:33> - Plan Patient seen this morning. Slight improvement, still nauseous. Who reports he has been having bowel movements. Abdominal x-ray with nonspecific bowel gas pattern Patient reports he took 5 days of antibiotics after prostate biopsy approximately 3 weeks ago This may have been the trigger for this gastroenteritis, or possible food poisoning Nobody else from the event have gotten sick so far. <Rodrigo Oliveira - Last Filed: 07/22/20 18:00>
[2020-07-22] MEDS ORDERED: CIPROFLOXACIN 400mg IV 400 MG/200 ML BAG IV ONE ×2 (01:59→10:18)
[2020-07-22] MEDS ORDERED: METRONIDAZOLE 500mg IVPB 500 MG/100 ML BAG IV ONE ×3 (01:59→17:47)
[2020-07-22] MEDS: NA CHLORIDE 0.9% 1,000 ML IV SCH ×2 (05:17→20:41)
[2020-07-22] MEDS ORDERED: ONDANSETRON 4 MG/2 ML VIAL IV PRN (05:17)
[2020-07-22] MEDS ORDERED: MORPHINE 2 MG/ML SYR IV PRN (05:17)
[2020-07-22 06:23] VITALS: BMI 29.3
[2020-07-22] MEDS: INSULIN -REGULAR HUMAN 50 UNIT/0.5 ML ML SQ SCH ×3 (07:30→17:45)
--- NOTE | 2020-07-22 07:52 | RAD REPORT ---
EXAM DESCRIPTION: RAD - Abdomen W Erect - 07/22/2020 6:46 am CLINICAL HISTORY: Abdominal pain FINDINGS: Free air is not seen beneath the diaphragm The bowel gas pattern is unremarkable.
[2020-07-22] MEDS: METRONIDAZOLE 500mg IVPB 500 MG/100 ML BAG IV SCH ×2 (09:00→17:00)
[2020-07-22] MEDS: ENOXAPARIN 40 MG/0.4 ML SQ SCH (09:00)
[2020-07-22 10:01] LABS: Absolute Lymphocytes (CBC) 1.2 K/uL (0.7-4.9); Basophils % 0.4 % (0-1.3); Hematocrit 46.2 % (39.6-49.0); Lymphocytes % 5.8 % (15.3-44.8); MPV 8.1 fL (7.6-11.3); RBC Red Blood Cell Count 5.18 M/uL (4.33-5.43)
[2020-07-22 10:15] LABS: Albumin 3.7 g/dL (3.4-5.0); Magnesium 2.3 mg/dL (1.8-2.4); Potassium 4.5 mmol/L (3.5-5.1); Protein, Total 7.3 g/dL (6.4-8.2)
[2020-07-22] MEDS ORDERED: NA CHLORIDE 0.9% 1,000 ML ONE (10:35)
[2020-07-22] MEDS ORDERED: ENOXAPARIN 40 MG/0.4 ML SQ ONE (10:44)
--- NOTE | 2020-07-22 12:33 | CON ---
Date of Consultation: 07/22/2020 Reason For Service: Generalized abdominal pain. History Of Present Illness: This is the case of an 79-year-old patient, comes to us with generalized abdominal pain and distention. The only thing he say is that yesterday he was in and bas ically he ate there. They have some food that catered from the restaurant outside. The food was the re for some time and then basically he ate. After that, he developed this abdominal pain and distent ion and then he comes overnight to the ER since he did not get better. He does not remember eating a nything else other than that. He cannot tell there are any other people sick since he has not been i n contact with them. He stated the pain started right after the eating. He denies any dysuria, mary turia, hematochezia, melena. Allergies: NONE. Medications: Include Neurontin, Toprol, Actos. Medical Problems: Include diverticulitis, diabetes, hypertension, history of prostate cancer, coloni c polyps. Family History: Noncontributory. Social History: He does not smoke. He does not drink alcohol. Review of Systems: As per H and P. Ten points otherwise unremarkable. Physical Examination: General: The patient is awake, alert. HEENT: Pupils are equal and reactive. Anicteric. Neck: Supple. Chest: Clear. Abdomen: Softly distended. Generalized tenderness. No rebound. Extremity: Good capillary refill. Rectal: Deferred. Laboratory Data: Blood work shows WBC count of 19 with hemoglobin of 15 and platelets of 251. Potas sium is 4.5 and creatinine is 1.7. CAT scan of the abdomen and pelvis interpreted by Dr. Diamond as ileus or diffuse gastroenteritis pattern. No obstruction, mass or focal bowel abnormalities. Diffus e fatty liver. All the findings were discussed with the patient. Assessment: It is an 79-year-old patient, developed abdominal pain and intestinal and stomach disten tion, and taking exactly after eating a food that was catered when he was . Right now, he is still with the abdominal pain. It is very tender, although there is no rebound. He denies having anything like this before. Plan: We are going to recommend the patient to be seen by [employer]. Continue hydration. He is tolerating antibiotics. We are going to keep the bowel rest and then also stool culture includ ing Shigella and Salmonella. APARNA/MODL Voice ID: [id number] Report ID: [id number]
[2020-07-22 12:34] LABS: Blood Morphology Comment NOT SEEN (NOT SEEN); Platelet Estimate ADEQ; White Blood Cell Scan OK (OK)
[2020-07-22] MEDS: CIPROFLOXACIN 400mg IV 400 MG/200 ML BAG IV SCH (14:00)
[2020-07-22] MEDS ORDERED: LORazepam 2 MG/ML VIAL IV ONE (20:49)
[2020-07-23] MEDS: NA CHLORIDE 0.9% 1,000 ML IV SCH ×3 (01:17→22:24)
[2020-07-23] MEDS: CIPROFLOXACIN 400mg IV 400 MG/200 ML BAG IV SCH ×2 (02:00→14:31)
[2020-07-23] MEDS: METRONIDAZOLE 500mg IVPB 500 MG/100 ML BAG IV SCH ×3 (02:06→17:47)
[2020-07-23 03:32] LABS: Urine Appearance CLEAR (Clear); Urine Bilirubin NEGATIVE (Negative); Urine Blood NEGATIVE (Negative); Urine Color YELLOW (Yellow); Urine Glucose NEGATIVE (Negative); Urine Protein NEGATIVE (Negative); Urine Specific Gravity 1.025 (1.005-1.030); Urine Urobilinogen 0.2 mg/dL (0.2-1.0); Urine pH 5.5 (5.0-7.0)
[2020-07-23 03:33] LABS: Urine Microscopic Reflex NO UMIC
[2020-07-23 05:58] LABS: Absolute Lymphocytes (CBC) 1.1 K/uL (0.7-4.9); Basophils % 0.3 % (0-1.3); Hematocrit 38.4 % (39.6-49.0); MPV 8.1 fL (7.6-11.3); RBC Red Blood Cell Count 4.35 M/uL (4.33-5.43)
[2020-07-23] MEDS: INSULIN -REGULAR HUMAN 50 UNIT/0.5 ML ML SQ SCH ×4 (05:59→18:00)
[2020-07-23 06:16] LABS: Bilirubin Total 0.8 mg/dL (0.2-1.0); Magnesium 2.2 mg/dL (1.8-2.4); Potassium 3.7 mmol/L (3.5-5.1)
[2020-07-23] MEDS ORDERED: KCL 20 MEQ/100 mL IVPB 20 MEQ/100 ML BAG IV SCH ×2 (07:00)
[2020-07-23] MEDS: ENOXAPARIN 40 MG/0.4 ML SQ SCH (09:00)
--- NOTE | 2020-07-23 11:05 | RAD REPORT ---
EXAM DESCRIPTION: RAD - Abdomen W Erect - 07/23/2020 10:53 am CLINICAL HISTORY: gatroenteritis COMPARISON: Abdomen W Erect dated 07/22/2020 TECHNIQUE: Supine and upright views of the abdomen were obtained. FINDINGS: NG tube tip is at the GE junction. Side port of the NG tube is in the distal esophagus. St omach is decompressed. Bowel gas pattern is nonspecific. No large or small bowel dilatation. No abnor mal stool volume in the colon. Colon is mostly air-filled. No free air or pneumatosis. Prominent lowe r lumbar degenerative changes are present. No suspicious calcifications. IMPRESSION: Unremarkable bowel gas pattern. No obstruction, free air or acute findings. Tip of the NG tube is only at the GE junction. The stomach is decompressed.
[2020-07-23 13:07] VITALS: O2SAT 97
--- NOTE | 2020-07-23 15:22 | P.PN ---
Subjective Date of Service: 07/23/20 Chief Complaint: Ileus Patient reports feeling much better today. No nausea, no vomiting. He states he has been passing gas. He denies abdominal pain. Physical Examination - Vital Signs Temperature: 98.6 F Blood Pressure: 173/73 Pulse: 76 Respirations: 17 Pulse Ox (%): 95 - Physical Exam General: Alert, In no apparent distress HEENT: Other (NGT) Neck: Supple, JVD not distended Respiratory: Clear to auscultation bilaterally, Normal air movement Cardiovascular: No edema, Regular rate/rhythm, Normal S1 S2 Capillary refill: <2 Seconds Gastrointestinal: Normal bowel sounds, Soft and benign, Non-distended Musculoskeletal: No swelling, No erythema Integumentary: No rashes Neurological: Normal strength at 5/5 x4 extr, Cranial nerves 3-12 intact Assessment And Plan - Current Problems (Diagnosis) (1) Gastroenteritis Current Visit: Yes Status: Acute (2) Intractable nausea and vomiting Current Visit: Yes Status: Acute (3) Hypertension Current Visit: No Status: Acute Qualifiers: Hypertension type: essential hypertension Qualified Code(s): I10 - Essential (primary) hypertension (4) Type 2 diabetes mellitus Current Visit: No Status: Acute Qualifiers: Diabetes mellitus mcfp insulin use: without mcfp use (5) Chronic kidney disease, stage 3 Current Visit: Yes Status: Acute - Plan Erect KUB results reviewed. No pattern suggest bowel obstruction or ileus. Stomach is also decompressed General surgery input appreciated. Clamp NGT and monitor output for the next 4 hours. Remove NG-tube if minimal output and symptoms resolved. Trial of clear liquid diet once NGT is removed. Resume home medications once NG-tube removed. Monitor renal function and electrolytes.
[2020-07-23] MEDS ORDERED: ATORVASTATIN 10 MG TAB PO SCH (21:00)
[2020-07-23] MEDS ORDERED: LORAZEPAM 0.5 MG TABLET PO ONE (22:51)
[2020-07-24] MEDS: METRONIDAZOLE 500mg IVPB 500 MG/100 ML BAG IV SCH ×2 (01:00→09:41)
[2020-07-24] MEDS: CIPROFLOXACIN 400mg IV 400 MG/200 ML BAG IV SCH (02:00)
[2020-07-24 06:00] LABS: Absolute Lymphocytes (CBC) 1.1 K/uL (0.7-4.9); Basophils % 0.3 % (0-1.3); Hematocrit 35.7 % (39.6-49.0); Lymphocytes % 14.8 % (15.3-44.8); MPV 7.3 fL (7.6-11.3); RBC Red Blood Cell Count 4.11 M/uL (4.33-5.43)
[2020-07-24] MEDS: INSULIN -REGULAR HUMAN 50 UNIT/0.5 ML ML SQ SCH ×2 (06:00)
[2020-07-24 06:26] LABS: Potassium 3.8 mmol/L (3.5-5.1)
[2020-07-24] MEDS: NA CHLORIDE 0.9% 1,000 ML IV SCH (07:17)
[2020-07-24] MEDS ORDERED: PANTOPRAZOLE 40MG TABLET PO SCH (07:30)
[2020-07-24] MEDS ORDERED: HOME MED 1 EA UNK (Simvastatin [Simvastatin] 20 MG Tablet) PO SCH (09:00)
[2020-07-24] MEDS ORDERED: POTASSIUM CL SA 10 MEQ TAB PO ONE (09:00)
[2020-07-24] MEDS ORDERED: HOME MED 1 EA UNK (Metoprolol Tartrate [Metoprolol Tartrate] 75 MG Tablet) PO SCH (09:00)
[2020-07-24] MEDS ORDERED: TAMSULOSIN 0.4 MG SR CAP PO SCH (09:00)
[2020-07-24] MEDS ORDERED: HOME MED 1 EA UNK (Omeprazole [Omeprazole] 20 MG Capsule.Dr) PO SCH (09:00)
[2020-07-24] MEDS ORDERED: METOPROLOL TAR 25 MG TAB PO SCH (09:00)
[2020-07-24] MEDS ORDERED: LOSARTAN POTASSIUM 50 MG TABLET PO SCH (09:00)
[2020-07-24] MEDS: ENOXAPARIN 40 MG/0.4 ML SQ SCH (09:00)
[2020-07-24] MEDS ORDERED: INSULIN -REGULAR HUMAN 50 UNIT/0.5 ML ML SQ SCH (11:30)
[2020-07-24 12:16] VITALS: BP 166/70; TEMP 98.4
--- NOTE | 2020-07-24 12:25 | P.DS ---
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 There is a report patient ate some barbecue at a and started experiencing nausea and vomiting abdominal pain, abdominal distention and diarrhea when he got home. CT abdomen and pelvis done in the emergency department demonstrated distended stomach with impression of ileus versus diffuse gastroenteritis. Patient was hospitalized for further management. Hospital Course: Patient admitted to the medical floor and started on supportive measures including IV fluids, NG tube to suction, pain management. He was seen in consultation by general surgery who recommended no surgical intervention. Serial KUB showed unremarkable gas pattern and no evidence of obstruction. NG tube was subsequently removed, patient tolerated diet advancement from clear liquids to soft diet. He had multiple bowel movement and passed flatus. His symptoms have resolved and patient deemed stable for discharge. Vital Signs/Physical Exam: Temp Pulse Resp BP Pulse Ox 98.4 F 70 16 166/70 H 99 07/24/20 12:00 07/24/20 12:00 07/24/20 12:00 07/24/20 12:00 07/24/20 12:00 General: Alert, In no apparent distress, Oriented x3 Neck: JVD not distended Respiratory: Clear to auscultation bilaterally, Normal air movement Cardiovascular: No edema, Regular rate/rhythm, Normal S1 S2 Capillary refill: <2 Seconds Gastrointestinal: Normal bowel sounds, Soft and benign, Non-distended, No tenderness Musculoskeletal: No swelling Integumentary: No rashes Neurological: Normal strength at 5/5 x4 extr Laboratory Data at Discharge: WBC 7.20 K/uL (4.3-10.9) D 07/24/20 05:43 Hgb 12.3 g/dL (13.6-17.9) L 07/24/20 05:43 Hct 35.7 % (39.6-49.0) L 07/24/20 05:43 Plt Count 197 K/uL (152-406) 07/24/20 05:43 Sodium 143 mmol/L (136-145) 07/24/20 05:43 Potassium 3.8 mmol/L (3.5-5.1) 07/24/20 05:43 BUN 12 mg/dL (7-18) 07/24/20 05:43 Creatinine 1.27 mg/dL (0.55-1.3) 07/24/20 05:43 Glucose 105 mg/dL (74-106) 07/24/20 05:43 Magnesium 2.2 mg/dL (1.8-2.4) 07/23/20 05:08 Total Bilirubin 0.8 mg/dL (0.2-1.0) 07/23/20 05:08 AST 22 U/L (15-37) 07/23/20 05:08 ALT 41 U/L (12-78) 07/23/20 05:08 Alkaline Phosphatase 43 U/L (45-117) L 07/23/20 05:08 Lipase 452 U/L (73-393) H 07/21/20 20:05 Home Medications: Gabapentin [Neurontin*] 100 mg PO DAILY 06/01/19 Losartan Potassium [Cozaar*] 100 mg PO DAILY 06/01/19 Omeprazole 20 mg PO DAILY 06/01/19 Pilocarpine HCl 1 tab PO DAILY 06/01/19 Pioglitazone [Actos*] 1 tab PO DAILY 06/01/19 Simvastatin 20 mg PO DAILY 06/01/19 Metoprolol Tartrate 75 mg PO DAILY 07/22/20 Tamsulosin [Flomax*] 0.4 mg PO DAILY 07/22/20 Physician Discharge Instructions: . Diet: ADA Activity: Ad evelio Followup: Ed Black MD [ACTIVE - CAN ADMIT] - NONE,NONE [Primary Care Provider] - 1-2 Weeks Chas Singh MD [ACTIVE - CAN ADMIT] - Time spent managing pt's care (in minutes): 32
[2020-07-24 12:55] LABS: C.diff Antigen/Toxin Ag pos : Tox neg (NEG : NEG)
== END 2020-07-24 14:38 | disposition home or self-care (01) | DRG 392 ==
LOC: ER 19:43 → ERHOLD 07-22 01:26 → 2ND 07-22 18:23
PROVIDERS: ADMIT Hospitalist; ATTEND Internal Medicine
DX: K52.9 Noninfective gastroenteritis and colitis, unspecified (principal); I12.9 Hypertensive chronic kidney disease with stage 1 through stage 4 chronic kidney disease, or unspecified chronic kidney disease; N18.30 Chronic kidney disease, stage 3 unspecified; E11.22 Type 2 diabetes mellitus with diabetic chronic kidney disease; E11.40 Type 2 diabetes mellitus with diabetic neuropathy, unspecified; C61 Malignant neoplasm of prostate; K76.0 Fatty (change of) liver, not elsewhere classified; E78.5 Hyperlipidemia, unspecified; Z79.82 Long term (current) use of aspirin; Z87.891 Personal history of nicotine dependence; Z79.899 Other long term (current) drug therapy; Z85.46 Personal history of malignant neoplasm of prostate; Z20.822 Contact with and (suspected) exposure to COVID-19
CPT/HCPCS: 0240U; 36415; 74019; 74177; 80048; 80053; 80076; 81003; 82947; 83690; 83735; 85025; 87045; 87046; 87324; 87449; 87493; 96374; 96375; 99285; J0744; J1650; J2405; J2550; J3480; J7030; J7040; Q9967

== ENCOUNTER 2023-02-17 17:20 | Inpatient (IN) | payer OTHER ==
[2023-02-17] MEDS ORDERED: MORPHINE 4 MG/ML SYR ONE ×2 (18:17→19:12)
[2023-02-17] MEDS ORDERED: NA CHLORIDE 0.9% 1,000 ML ONE (18:17)
[2023-02-17] MEDS ORDERED: ONDANSETRON 4 MG/2 ML VIAL ONE (18:17)
[2023-02-17] MEDS ORDERED: FAMOTIDINE 20 MG/2 ML VIAL IV ONE (18:17)
[2023-02-17] MEDS ORDERED: ASPIRIN 81 MG CHEWABLE TABLET ONE (18:17)
[2023-02-17 18:23] LABS: Urine Bacteria <20 /HPF (<20); Urine Bilirubin NEGATIVE (Negative); Urine Blood Negative (Negative); Urine Clarity Clear (Clear); Urine Color Dark-Yellow (Yellow); Urine Glucose NEGATIVE (Negative); Urine Mucus Slight /HPF (None Seen); Urine Protein 1+ (Negative); Urine RBC <5 /HPF (None Seen); Urine Urobilinogen 1+ (Normal); Urine pH 5.5 (5.0-7.0)
--- NOTE | 2023-02-17 18:30 | RAD REPORT ---
EXAM DESCRIPTION: RAD - Chest Single View - 02/17/2023 5:53 pm CLINICAL HISTORY: CHEST PAIN Chest pain. COMPARISON: Chest Pa And Lat (2 Views) dated 02/16/2020; Chest Single View dated 06/01/2019; Abdomen Acute Series dated 08/27/2016; Chest Pa And Lat (2 Views) dated 06/08/2016 FINDINGS: Portable technique limits examination quality. The lungs are grossly clear. The heart is mildly enlarged. No displaced fractures. IMPRESSION: No acute intrathoracic process suspected.
[2023-02-17 19:04] LABS: Absolute Lymphocytes (CBC) 1.8 K/uL (0.7-4.9); Hematocrit 44.5 % (39.6-49.0); Lymphocytes % 7.7 % (15.3-44.8); MCV 90.6 fL (80-100); Platelets 442 thou/uL (152-406); RBC Red Blood Cell Count 4.91 M/uL (4.33-5.43)
[2023-02-17 19:23] LABS: Protime INR 1.15
[2023-02-17 19:56] LABS: Potassium 4.8 mEq/L (3.5-5.1)
[2023-02-17 19:57] LABS: Bilirubin Direct 0.4 mg/dL (0-0.2)
[2023-02-17 19:58] LABS: Albumin 3.4 g/dL (3.4-5.0); Magnesium 2.3; Protein, Total 7.8 g/dL (6.4-8.2); Troponin High Sensitivity 6.2 (<58.9)
[2023-02-17 20:21] LABS: Bilirubin Indirect, Calculated 0.9 mg/dL (0.2-0.8); Bilirubin Total 1.3 mg/dL (0.2-1.0)
[2023-02-17] MEDS ORDERED: PIPERACIL/TAZO 3.375 GM VIAL IV ONE (20:29)
[2023-02-17] MEDS ORDERED: NA CHLORIDE 0.9% 100 ML ONE (20:29)
--- NOTE | 2023-02-17 20:29 | RAD REPORT ---
EXAM DESCRIPTION: US - Abdomen Exam Limited - 02/17/2023 8:16 pm CLINICAL HISTORY: ABD PAIN COMPARISON: No comparisons FINDINGS: The gallbladder demonstrates no gallstones. No pericholecystic fluid or gallbladder wall t hickening. The common bile duct is normal measuring 3-4 mm. The liver demonstrates no findings of intrahepatic biliary dilatation. IMPRESSION: Unremarkable examination.
[2023-02-17 20:35] LABS: Platelet Estimate INCR; Toxic Granulation 1+
[2023-02-17 20:36] LABS: Blood Morphology Comment NOT SEEN (NOT SEEN)
[2023-02-17 20:54] LABS: SARS-COV-2 RT PCR NEGATIVE (NEGATIVE)
--- NOTE | 2023-02-17 20:59 | RAD REPORT ---
EXAM DESCRIPTION: CT - Chest Abd Pelvis Wo Con - 02/17/2023 8:29 pm CLINICAL HISTORY: Chest and abdomen pain. ABD PAIN COMPARISON: Lung Cancer Screening CT W/O dated 10/15/2021 TECHNIQUE: A limited noncontrast study was performed. All CT scans are performed using dose optimization technique as appropriate and may include automated exposure control or mA/KV adjustment according to patient size. FINDINGS: The lungs are mildly emphysematous.No focal infiltrate seen.Trace left pleural effusion an d pericardial effusion.No intrathoracic adenopathy. The liver demonstrates mild fatty infiltration. The spleen, pancreas, adrenal glands and kidneys are within normal limits. Right renal cysts. No hydronephrosis. No bowel obstruction, free air, free fluid or abscess. Normal appendix. Prominent sigmoid diverticulo sis coli without diverticulitis. No pathologic lymphadenopathy in the abdomen or pelvis. Small fat co ntaining right inguinal hernia. Mild lumbar degenerative changes. IMPRESSION: Mild COPD.Trace left pleural effusion and pericardial effusion. Prominent sigmoid diverticulosis coli without diverticulitis. Small fat containing right inguinal hernia.
--- NOTE | 2023-02-17 21:22 | EDPHYS ---
Physician Documentation [facility] Name: Vincenzo Mosquera Age: 82 yrs Sex: Male : 1940 Arrival Date: 02/17/2023 Time: 17:20 Bed 3 Private MD: ED Physician Yg Ordonez HPI: 02/17 17:47 This 82 yrs old Male presents to ER via Ambulatory with complaints of Chest jet Pain. 17:47 The patient or guardian reports chest pain that is located primarily in the substernal jet area, anterior chest wall, bilaterally. Onset: yesterday. The pain radiates to neck. Associated signs and symptoms: Pertinent positives: shortness of breath. The chest pain is described as sharp. Duration: The patient or guardian reports multiple episodes, with no pattern. Modifying factors: The symptoms are alleviated by remaining still, the symptoms are aggravated by deep breath, movement. Severity of pain: At its worst the pain was moderate in the emergency department the pain is unchanged. Historical: - Allergies: 17:35 No Known Allergies; cm10 - PMHx: 17:35 Diabetes - NIDDM; Hypertension; Hyperlipidemia; Prostate Cancer; neuropathy; cm10 Diverticulitis; Acid Reflux; Sjogern's; - Immunization history:: Adult Immunizations unknown. - Social history:: Smoking status: Patient denies any tobacco usage or history of. ROS: 17:56 Constitutional: Negative for fever, chills, and weight loss, Eyes: Negative for injury, jet pain, redness, and discharge, ENT: Negative for injury, pain, and discharge, Neck: Negative for injury, pain, and swelling, Respiratory: Negative for shortness of breath, cough, wheezing, and pleuritic chest pain, Abdomen/GI: Negative for abdominal pain, nausea, vomiting, diarrhea, and constipation, Back: Negative for injury and pain, : Negative for injury, bleeding, discharge, and swelling, MS/Extremity: Negative for injury and deformity, Skin: Negative for injury, rash, and discoloration, Neuro: Negative for headache, weakness, numbness, tingling, and seizure, Psych: Negative for depression, anxiety, suicide ideation, homicidal ideation, and hallucinations, Allergy/Immunology: Negative for hives, rash, and allergies, Endocrine: Negative for neck swelling, polydipsia, polyuria, polyphagia, and marked weight changes, Hematologic/Lymphatic: Negative for swollen nodes, abnormal bleeding, and unusual bruising, 17:56 Cardiovascular: Positive for chest pain, Exam: 17:56 Constitutional: This is a well developed, well nourished patient who is awake, alert, jet and in no acute distress. Head/Face: Normocephalic, atraumatic. Eyes: Pupils equal round and reactive to light, extra-ocular motions intact. Lids and lashes normal. Conjunctiva and sclera are non-icteric and not injected. Cornea within normal limits. Periorbital areas with no swelling, redness, or edema. ENT: Nares patent. No nasal discharge, no septal abnormalities noted. Tympanic membranes are normal and external auditory canals are clear. Oropharynx with no redness, swelling, or masses, exudates, or evidence of obstruction, uvula midline. Mucous membranes moist. Neck: Trachea midline, no thyromegaly or masses palpated, and no cervical lymphadenopathy. Supple, full range of motion without nuchal rigidity, or vertebral point tenderness. No Meningismus. Chest/axilla: Normal chest wall appearance and motion. Nontender with no deformity. No lesions are appreciated. Cardiovascular: Regular rate and rhythm with a normal S1 and S2. No gallops, murmurs, or rubs. Normal PMI, no JVD. No pulse deficits. Abdomen/GI: Soft, non-tender, with normal bowel sounds. No distension or tympany. No guarding or rebound. No evidence of tenderness throughout. Back: No spinal tenderness. No costovertebral tenderness. Full range of motion. Male : Normal genitalia with no discharge or lesions. Skin: Warm, dry with normal turgor. Normal color with no rashes, no lesions, and no evidence of cellulitis. MS/ Extremity: Pulses equal, no cyanosis. Neurovascular intact. Full, normal range of motion. Neuro: Awake and alert, GCS 15, oriented to person, place, time, and situation. Cranial nerves II-XII grossly intact. Motor strength 5/5 in all extremities. Sensory grossly intact. Cerebellar exam normal. Normal gait. Psych: Awake, alert, with orientation to person, place and time. Behavior, mood, and affect are within normal limits. 17:56 ECG was reviewed by the Attending Physician. 17:56 Respiratory: the patient does not display signs of respiratory distress, Respirations: normal, Breath sounds: are clear throughout, Respiratory rate: 22 17:56 Abdomen/GI: Inspection: distension, that is mild, Bowel sounds: normal, Palpation: mild abdominal tenderness, in the right upper quadrant and left upper quadrant, Liver: no appreciated palpable abnormalities, Hernia: not appreciated, Vital Signs: 17:33 BP 146 / 74; Pulse 97; Resp 22; Temp 98.7; Pulse Ox 100% ; Weight 90.26 kg; Height 5 cm10 ft. 8 in. ; Pain 8/10; 17:51 BP 125 / 71; Pulse 100; Resp 23; Pulse Ox 98% on R/A; Pain 8/10; ld1 18:12 BP 145 / 75; Pulse 94; Resp 27; Pulse Ox 99% on R/A; Pain 8/10; ld1 19:00 BP 129 / 69; Pulse 85; Resp 18; Pulse Ox 98% on R/A; Pain 8/10; ld1 19:20 Pain 4/10; km8 19:30 BP 117 / 87; Pulse 83; Resp 20; Pulse Ox 96% on R/A; km8 20:26 BP 129 / 77; Pulse 86; Resp 18; Pulse Ox 97% on R/A; km8 22:06 BP 121 / 59; Pulse 82; Resp 16; Pulse Ox 95% on R/A; km8 22:39 BP 117 / 65; Pulse 76; Resp 17; Temp 98; Pulse Ox 99% ; rv 17:33 Body Mass Index 30.26 (90.26 kg, 172.72 cm) cm10 17:33 Pain Scale: Adult cm10 17:51 Pain Scale: Adult ld1 18:12 Pain Scale: Adult ld1 19:00 Pain Scale: Adult ld1 19:20 Pain Scale: Adult km8 [place] Coma Score: 22:39 Eye Response: spontaneous(4). Motor Response: obeys commands(6). Verbal Response: rv oriented(5). Total: 15. MDM: 17:35 Patient medically screened. jet 17:58 Differential diagnosis: abnormal EKG, Cholelithiasis esophagitis, gastritis, peptic jet ulcer disease, pneumonia, pneumothorax, pulmonary embolus, stable angina, unstable angina, bowel obstruction, gastritis, gastroesophageal reflux disease, Mesenteric ischemia or infarction, myocardia ischemia or infarction, non-specific abd pain, pancreatitis, Ureterolithiasis, urinary tract infection. HEART Score: History: Slightly Suspicious (0), ECG: Normal (0), Age: > or = 65 years (2), Risk Factors: > or = 3 Risk factors for atherosclerotic disease (2), [Hypercholesterolemia] [Hypertension] [DM] [+ Family HX] [Obesity] Troponin: < or = 1 x Normal Limit (0). The patient was given aspirin in the Emergency Department. Data reviewed: vital signs, nurses notes, lab test result(s), EKG, radiologic studies, CT scan, plain films. Consideration of Admission/Observation Patient was admitted/placed on observation. Escalation of care including admission/observation considered. Independent interpretation of the following test(s) in the Emergency Department EKG: See my EKG interpretation above. Test considered but Not performed: MRI: no mri chest. Historians other than the Patient: Daughter/Son: son well informed. Care significantly affected by the following chronic conditions: Diabetes, Hypertension, Obesity, Cancer. Counseling: I had a detailed discussion with the patient and/or guardian regarding the historical points, exam findings, and any diagnostic results supporting the discharge/admit diagnosis, the presence of at least one elevated blood pressure reading (>120/80) during this emergency department visit, lab results, radiology results, the need for further work-up and treatment in the hospital. 19:53 ED course: PT CHECKED OUT TO DR. ORDONEZ. [facility] 20:31 ED course: Patient's prior admission 07/22/2020 this was for gastroenteritis, sp4 intractable nausea vomiting, hypertension, type 2 diabetes, chronic kidney disease stage III. Patient has additional history of hypertension, hyperlipidemia, prostate cancer, patient's medications include gabapentin, losartan, omeprazole, pilocarpine, pioglitazone, simvastatin, metoprolol, tamsulosin.. 21:22 ED course: CT report - EXAM DESCRIPTION: CT - Chest Abd Pelvis Wo Con - 02/17/2023 8:29 sp4 pm CLINICAL HISTORY: Chest and abdomen pain. ABD PAIN COMPARISON: Lung Cancer Screening CT W/O dated 10/15/2021 TECHNIQUE: A limited noncontrast study was performed. All CT scans are performed using dose optimization technique as appropriate and may include automated exposure control or mA/KV adjustment according to patient size. FINDINGS: The lungs are mildly emphysematous.No focal infiltrate seen.Trace left pleural effusion and pericardial effusion.No intrathoracic adenopathy. The liver demonstrates mild fatty infiltration. The spleen, pancreas, adrenal glands and kidneys are within normal limits. Right renal cysts. No hydronephrosis. No bowel obstruction, free air, free fluid or abscess. Normal appendix. Prominent sigmoid diverticulosis coli without diverticulitis. No pathologic lymphadenopathy in the abdomen or pelvis. Small fat containing right inguinal hernia. Mild lumbar degenerative changes. IMPRESSION: Mild COPD. Trace left pleural effusion and pericardial effusion. Prominent sigmoid diverticulosis coli without diverticulitis. Small fat containing right inguinal hernia. . ED course: US - EXAM DESCRIPTION: US - Abdomen Exam Limited - 02/17/2023 8:16 pm CLINICAL HISTORY: ABD PAIN COMPARISON: No comparisons FINDINGS: The gallbladder demonstrates no gallstones. No pericholecystic fluid or gallbladder wall thickening. The common bile duct is normal measuring 3-4 mm. The liver demonstrates no findings of intrahepatic biliary dilatation. IMPRESSION: Unremarkable examination. . ED course: Chest - EXAM DESCRIPTION: RAD - Chest Single View - 02/17/2023 5:53 pm CLINICAL HISTORY: CHEST PAIN Chest pain. COMPARISON: Chest Pa And Lat (2 Views) dated 02/16/2020; Chest Single View dated 06/01/2019; Abdomen Acute Series dated 08/27/2016; Chest Pa And Lat (2 Views) dated 06/08/2016 FINDINGS: Portable technique limits examination quality. The lungs are grossly clear. The heart is mildly enlarged. No displaced fractures. IMPRESSION: No acute intrathoracic process suspected. . 21:24 ED course: Significant elevation of WBCs with neutrophilic predominance. Patient sp4 warrants broader range IV antibiotics and admission. Patient was discussed with Viet sherman who accepted patient for admission. 02/17 17:36 Order name: Basic Metabolic Panel; Complete Time: 20:26 [facility] 02/17 17:36 Order name: CBC with Diff; Complete Time: 21:18 [facility] 02/17 17:36 Order name: LFT's; Complete Time: 20:26 [facility] 02/17 17:36 Order name: Magnesium; Complete Time: 20:26 [facility] 02/17 17:36 Order name: NT PRO-BNP; Complete Time: 20:26 [facility] 02/17 17:36 Order name: PT-INR; Complete Time: 19:47 [facility] 02/17 17:36 Order name: Troponin HS; Complete Time: 20:26 [facility] 02/17 17:36 Order name: Lipase; Complete Time: 20:26 [facility] 02/17 17:36 Order name: Urinalysis w/ reflexes; Complete Time: 18:25 [facility] 02/17 19:48 Order name: Blood Culture Adult (2) [facility] 02/17 19:48 Order name: Lactate w/ 2H reflex if indic.; Complete Time: 21:18 [facility] 02/17 19:48 Order name: COVID-19/FLU A+B/RSV; Complete Time: 21:18 [facility] 02/17 20:36 Order name: Manual Differential; Complete Time: 21:18 EDMS 02/17 21:37 Order name: Urinalysis w/ reflexes EDMS 02/17 21:39 Order name: Urinalysis w/ reflexes EDMS 02/17 21:42 Order name: Basic Metabolic Panel [facility] 02/17 21:42 Order name: Basic Metabolic Panel [facility] 02/17 21:42 Order name: CBC with Automated Diff EDMS 02/17 21:42 Order name: CBC with Automated Diff EDND 02/17 17:36 Order name: XRAY Chest (1 view); Complete Time: 19:15 [facility] 02/17 19:47 Order name: US Abdomen Limited; Complete Time: 21:18 [facility] 02/17 20:17 Order name: Chest Abd Pelvis Wo Con; Complete Time: 21:18 [facility] 02/17 17:36 Order name: EKG; Complete Time: 17:37 [facility] 02/17 17:36 Order name: Cardiac monitoring; Complete Time: 17:38 [facility] 02/17 17:36 Order name: EKG - Nurse/Tech; Complete Time: 17:48 [facility] 02/17 17:36 Order name: IV Saline Lock; Complete Time: 17:49 [facility] 02/17 17:36 Order name: Labs collected and sent; Complete Time: 17:49 [facility] 02/17 17:36 Order name: O2 Per Protocol; Complete Time: 17:38 [facility] 02/17 17:36 Order name: O2 Sat Monitoring; Complete Time: 17:38 [facility] EC:56 Rate is 96 beats/min. Rhythm is regular. QRS [place] is Normal. CO interval is normal. QRS jet interval is normal. QT interval is normal. No Q waves. T waves are Normal. No ST changes noted. Clinical impression: NSR w/ Non-specific ST/T Changes and No evidence of ischemia. Interpreted by me. Reviewed by me. Administered Medications: 17:50 Drug: morphine IVP or IV 2 mg IVP once over 4 mins Route: IVP; Infused Over: 4 mins; ld1 Site: right forearm; 19:19 Follow up: Response: No adverse reaction km8 18:11 Drug: NS 0.9% IV 1000 ml IV at 125 ml/hr continuous Route: IV; Rate: 125 ml/hr; Site: ld1 right forearm; 20:21 Follow up: IV Status: Completed infusion; IV Intake: 1000ml km8 18:11 Drug: Aspirin PO Chewable Tablet 324 mg PO once; 81 mg tablets x 4 Route: PO; ld1 19:20 Follow up: Response: No adverse reaction 8 18:11 Drug: Famotidine IVP 20 mg IVP once; dilute with 10 mL 0.9% NaCl; give over 2 minutes ld1 Route: IVP; Site: right forearm; 19:20 Follow up: Response: No adverse reaction 8 18:11 Drug: morphine IVP or IV 2 mg IVP once over 4 mins Route: IVP; Infused Over: 4 mins; ld1 Site: right forearm; 19:19 Follow up: Response: No adverse reaction km8 18:11 Drug: Ondansetron IVP 4 mg IVP once; over 2 minutes Route: IVP; Site: right forearm; ld1 19:19 Follow up: Response: No adverse reaction 8 18:59 Drug: morphine IVP or IV 4 mg IVP once over 4 mins; Verbal order per Dr. Willard ld1 Route: IVP; Infused Over: 4 mins; Site: right forearm; 19:19 Follow up: Response: No adverse reaction; Pain is decreased 8 20:38 Drug: Piperacillin-Tazobactam IVPB 3.375 grams IVPB once over 60 mins; (mix in NS 100 rv mL) Route: IVPB; Infused Over: 60 mins; Site: right forearm; 21:10 Follow up: IV Status: Completed infusion; IV Intake: 100ml [facility] 21:46 Drug: vancoMYCIN IVPB 1 grams IVPB once over 2 hrs Route: IVPB; Infused Over: 2 hrs; rv Site: right forearm; 22:08 Follow up: IV Status: Infusion continued upon admission [facility] 22:51 Follow up: IV Status: Infusion continued upon admission rv Disposition Summary: 02/17/23 21:21 Hospitalization Ordered Notes: Hospitalization Status: Inpatient Admission sp4 Provider: Roney Polanco sp4 [facility] sp[facility] Condition: Stable sp4 Problem: new sp4 Symptoms: have improved sp4 Bed/Room Type: Standard sp4 Room Assignment: 224(02/17/23 21:52) jr Diagnosis - Severe sepsis without septic shock sp4 Forms: - Medication Reconciliation Form sp4 - SBAR form sp4 - Leadership Thank You Letter sp4 Signatures: Dispatcher [employer] EDMS Naif Willard MD MD cha Vicente, Ronaldo RN RN rv Rachel Perdomo RN RN ld1 Yg Ordonez MD MD sp4 Citlaly Black RN RN cm10 Bernard, [facility]12 Alexandra Albert RN km8 Corrections: (The following items were deleted from the chart) 20:17 17:45 Abdomen Pelvis W Con+CT.RAD.BRZ ordered. EDMS EDMS 20:18 17:45 Chest For PE Angio+CT.RAD.BRZ ordered. EDMS EDMS 21:52 21:21 sp4 [id number]
--- NOTE | 2023-02-17 21:22 | ER ---
Nurse's Notes [facility] Name: Vincenzo Mosquera Age: 82 yrs Sex: Male : 1940 Arrival Date: 02/17/2023 Time: 17:20 Bed 3 Private MD: Diagnosis: Severe sepsis without septic shock Presentation: 02/17 17:33 Chief complaint: Patient states: Right sided chest pain. Pt states that he had pain to cm10 the left and right of his chest and the pain resolved on the left side. Pt states that the pain radiates to his neck. Pt also states that he is unable to to take a deep breath. Coronavirus screen: Vaccine status: Patient reports receiving the 2nd dose of the covid vaccine. Client denies travel out of the [place] in the last 14 days. Ebola Screen: Patient denies travel to an Ebola-affected area in the 21 days before illness onset. No symptoms or risks identified at this time. Initial Sepsis Screen: Does the patient meet any 2 criteria? No. Patient's initial sepsis screen is negative. Does the patient have a suspected source of infection? No. Patient's initial sepsis screen is negative. Risk Assessment: Do you want to hurt yourself or someone else? Patient reports no desire to harm self or others. Onset of symptoms was February 17, 2023. 17:33 Method Of Arrival: Ambulatory 10 17:33 Acuity: MARIA EUGENIA 2 cm10 Historical: - Allergies: 17:35 No Known Allergies; cm10 - PMHx: 17:35 Diabetes - NIDDM; Hypertension; Hyperlipidemia; Prostate Cancer; neuropathy; cm10 Diverticulitis; Acid Reflux; Sjogern's; - Immunization history:: Adult Immunizations unknown. - Social history:: Smoking status: Patient denies any tobacco usage or history of. Screenin:51 [facility] ED Fall Risk Assessment (Adult) History of falling in the last 3 months, ld1 including since admission No falls in past 3 months (0 pts). Abuse screen: Denies threats or abuse. Denies injuries from another. Nutritional screening: No deficits noted. Tuberculosis screening: No symptoms or risk factors identified. Assessment: 17:51 General: Appears in no apparent distress. comfortable, Behavior is calm, cooperative, ld1 appropriate for age. Pain: Complains of pain in chest Pain does not radiate. Pain currently is 8 out of 10 on a pain scale. Quality of pain is described as heavy, pressure, Pain began 1 day ago. Is continuous. Neuro: Level of Consciousness is awake, alert, obeys commands, Oriented to person, place, time, situation. Cardiovascular: Capillary refill < 3 seconds Patient's skin is warm and dry. Rhythm is sinus tachycardia. Cardiovascular: Reports chest pain. Respiratory: Airway is patent Respiratory effort is even, unlabored. Respiratory: Reports pain with respiration Onset: The symptoms/episode began/occurred today, the patient has moderate shortness of breath. GI: Abdomen is round non-distended. : No signs and/or symptoms were reported regarding the genitourinary system. EENT: No signs and/or symptoms were reported regarding the EENT system. Derm: No signs and/or symptoms reported regarding the dermatologic system. Musculoskeletal: No signs and/or symptoms reported regarding the musculoskeletal system. 19:00 Reassessment: Patient appears in no apparent distress at this time. No changes from ld1 previously documented assessment. Patient states symptoms have not improved. 19:18 General: Appears in no apparent distress. comfortable, Behavior is calm, cooperative, km8 appropriate for age. Pain: Complains of pain in chest Pain currently is 4 out of 10 on a pain scale. Neuro: Level of Consciousness is awake, alert, obeys commands, Oriented to person, place, time, situation. Cardiovascular: Reports chest pain, Capillary refill < 3 seconds Patient's skin is warm and dry. Respiratory: Reports pain with respiration Airway is patent Respiratory effort is even, unlabored, Respiratory pattern is regular, symmetrical. 20:00 Reassessment: Patient appears in no apparent distress at this time. No changes from km8 previously documented assessment. Patient and/or family updated on plan of care and expected duration. Pain level reassessed. Patient is alert, oriented x 3, equal unlabored respirations, skin warm/dry/pink. 21:00 Reassessment: Patient appears in no apparent distress at this time. No changes from km8 previously documented assessment. Patient and/or family updated on plan of care and expected duration. Pain level reassessed. Patient is alert, oriented x 3, equal unlabored respirations, skin warm/dry/pink. 22:07 Reassessment: Patient appears in no apparent distress at this time. Patient and/or km8 family updated on plan of care and expected duration. Pain level reassessed. Patient is alert, oriented x 3, equal unlabored respirations, skin warm/dry/pink. Patient states feeling better. Patient states symptoms have improved. Vital Signs: 17:33 BP 146 / 74; Pulse 97; Resp 22; Temp 98.7; Pulse Ox 100% ; Weight 90.26 kg; Height 5 cm10 ft. 8 in. ; Pain 8/10; 17:51 BP 125 / 71; Pulse 100; Resp 23; Pulse Ox 98% on R/A; Pain 8/10; ld1 18:12 BP 145 / 75; Pulse 94; Resp 27; Pulse Ox 99% on R/A; Pain 8/10; ld1 19:00 BP 129 / 69; Pulse 85; Resp 18; Pulse Ox 98% on R/A; Pain 8/10; ld1 19:20 Pain 4/10; km8 19:30 BP 117 / 87; Pulse 83; Resp 20; Pulse Ox 96% on R/A; km8 20:26 BP 129 / 77; Pulse 86; Resp 18; Pulse Ox 97% on R/A; km8 22:06 BP 121 / 59; Pulse 82; Resp 16; Pulse Ox 95% on R/A; km8 22:39 BP 117 / 65; Pulse 76; Resp 17; Temp 98; Pulse Ox 99% ; rv 17:33 Body Mass Index 30.26 (90.26 kg, 172.72 cm) cm10 17:33 Pain Scale: Adult cm10 17:51 Pain Scale: Adult ld1 18:12 Pain Scale: Adult ld1 19:00 Pain Scale: Adult ld1 19:20 Pain Scale: Adult km8 Erik Coma Score: 22:39 Eye Response: spontaneous(4). Motor Response: obeys commands(6). Verbal Response: rv oriented(5). Total: 15. ED Course: 17:24 Patient arrived in ED. cm10 17:35 Naif Willard MD is Attending Physician. [facility] 17:35 Triage completed. cm10 17:37 Arm band placed on Patient placed in an exam room, on radiation monitor, on pulse cm10 oximetry. 17:46 Deepali La, USHA is Primary Nurse. nj1 17:51 Patient has correct armband on for positive identification. Placed in gown. Bed in low ld1 position. Call light in reach. Side rails up X2. traffic monitor specialist on. Pulse ox on. NIBP on. Door closed. Noise minimized. Warm blanket given. 17:51 No provider procedures requiring assistance completed. Inserted saline lock: 20 gauge ld1 in right forearm, using aseptic technique. Blood collected. 17:51 Patient maintains SpO2 saturation greater than 95% on room air. ld1 17:55 XRAY Chest (1 view) In Process Unspecified. EDMS 18:11 Urinalysis w/ reflexes Sent. ld1 20:18 US Abdomen Limited In Process Unspecified. EDMS 20:26 Attending Physician role handed off by Naif Willard MD sp4 20:26 Yg Ordonez MD is Attending Physician. sp4 20:31 Chest Abd Pelvis Wo Con In Process Unspecified. EDMS 21:21 Roney Polanco MD is Hospitalizing Provider. sp4 22:07 Provided Education on: admission process. km8 22:07 Patient admitted, IV remains in place. km8 Administered Medications: 17:50 Drug: morphine IVP or IV 2 mg IVP once over 4 mins Route: IVP; Infused Over: 4 mins; ld1 Site: right forearm; 19:19 Follow up: Response: No adverse reaction km8 18:11 Drug: NS 0.9% IV 1000 ml IV at 125 ml/hr continuous Route: IV; Rate: 125 ml/hr; Site: ld1 right forearm; 20:21 Follow up: IV Status: Completed infusion; IV Intake: 1000ml km8 18:11 Drug: Aspirin PO Chewable Tablet 324 mg PO once; 81 mg tablets x 4 Route: PO; ld1 19:20 Follow up: Response: No adverse reaction km8 18:11 Drug: Famotidine IVP 20 mg IVP once; dilute with 10 mL 0.9% NaCl; give over 2 minutes ld1 Route: IVP; Site: right forearm; 19:20 Follow up: Response: No adverse reaction km8 18:11 Drug: morphine IVP or IV 2 mg IVP once over 4 mins Route: IVP; Infused Over: 4 mins; ld1 Site: right forearm; 19:19 Follow up: Response: No adverse reaction 8 18:11 Drug: Ondansetron IVP 4 mg IVP once; over 2 minutes Route: IVP; Site: right forearm; ld1 19:19 Follow up: Response: No adverse reaction km8 18:59 Drug: morphine IVP or IV 4 mg IVP once over 4 mins; Verbal order per Dr. Willard ld1 Route: IVP; Infused Over: 4 mins; Site: right forearm; 19:19 Follow up: Response: No adverse reaction; Pain is decreased km8 20:38 Drug: Piperacillin-Tazobactam IVPB 3.375 grams IVPB once over 60 mins; (mix in NS 100 rv mL) Route: IVPB; Infused Over: 60 mins; Site: right forearm; 21:10 Follow up: IV Status: Completed infusion; IV Intake: 100ml km8 21:46 Drug: vancoMYCIN IVPB 1 grams IVPB once over 2 hrs Route: IVPB; Infused Over: 2 hrs; rv Site: right forearm; 22:08 Follow up: IV Status: Infusion continued upon admission km8 22:51 Follow up: IV Status: Infusion continued upon admission rv Medication: 19:19 VIS not applicable for this client. km8 Intake: 20:21 IV: 1000ml; Total: 1000ml. km8 21:10 IV: 100ml; Total: 1100ml. km8 Outcome: 21:21 Decision to Hospitalize by Provider. sp4 22:50 Admitted to Med/surg accompanied by nurse, via stretcher, room 224, with chart, Report rv called to ADEBAYO KERR 22:50 Condition: good 22:50 Instructed on the need for admit, 22:51 Patient left the ED. rv Signatures: Dispatcher [employer] EDNaif Gutierres MD MD cha Vicente, Ronaldo, RN RN rv Rachel Perdomo RN RN [email or web address] Yg Ordonez MD MD sp4 Deepali La RN RN nj1 Citlaly Black, RN RN cm10 Alexandra Albert, RN RN km8
[2023-02-17] MEDS ORDERED: NA CHLORIDE 0.9% 250 ML ONE (21:31)
[2023-02-17] MEDS ORDERED: VANCOMYCIN 1 GM/VIAL ONE (21:31)
--- NOTE | 2023-02-17 21:31 | P.HP ---
Certification for Inpatient Patient admitted to: Inpatient With expected LOS: >2 Midnights Practitioner: I am a practitioner with admitting privileges, knowledge of patient current condition, hospital course, and medical plan of care. Services: Services provided to patient in accordance with Admission requirements found in Title 42 Section 412.3 of the Code of Federal Regulations Patient History Date of Service: 02/18/23 Reason for admission: Pneumonia, suspected sepsis. History of Present Illness: 82-year-old male patient was medical history significant for hypertension, hy perlipidemia, diabetes type 2 and suspected chronic kidney disease admitted for management of underlying sepsis with finding of severely elevated white cell of 23,000. He had complained of feeling of unwellness and feeling very uneasy. He denied overt episode of fever, chills but did have issues with pain on taking deep breath. Pain is in both side of the chest without overt episode of chest pain radiating down into the left arm. He was evaluated in the emergency department and found to have elevated white cell with neutrophil differential count of 80% and also trace pleural effusion. He was started on broad-spectrum antibiotic therapy and was asked to be evaluated for inpatient care. Allergies No Known Drug Allergies Allergy (Verified 02/17/23 23:17) none lactose Adverse Reaction (Verified 07/24/20 09:07) Nausea/Vomiting Home Medications: Gabapentin [Neurontin*] 100 mg PO DAILY 06/01/19 Losartan Potassium [Cozaar*] 100 mg PO DAILY 06/01/19 Omeprazole 20 mg PO DAILY 06/01/19 Pilocarpine HCl 1 tab PO DAILY 06/01/19 Pioglitazone [Actos*] 1 tab PO DAILY 06/01/19 Simvastatin 20 mg PO DAILY 06/01/19 Metoprolol Tartrate 75 mg PO DAILY 07/22/20 Tamsulosin [Flomax*] 0.4 mg PO DAILY 07/22/20 - Past Medical/Surgical History Diabetic: Yes -: Diverticulitis -: HTN -: DM -: Neuropathy -: Prostate Cancer -: Colon Polyps -: none Psychosocial/ Personal History: Patient lives at home with his and is retired - Family History Father -: Heart disease Mother -: Heart disease - Social History Alcohol use: Yes CD- Drugs: No Caffeine use: Yes Review of Systems General: Weakness, Malaise Eyes: Unremarkable ENT: Unremarkable Respiratory: Pleuritic Pain Cardiovascular: Unremarkable Gastrointestinal: Unremarkable Genitourinary: Unremarkable Musculoskeletal: Unremarkable Integumentary: Unremarkable Neurological: Unremarkable Physical Examination - Physical Exam General: Alert, Oriented x3 HEENT: Atraumatic, Normocephalic Neck: Supple Respiratory: Normal air movement Cardiovascular: Normal pulses, Regular rate/rhythm Gastrointestinal: Soft and benign Musculoskeletal: No swelling Neurological: Normal speech - Studies Laboratory Data (last 24 hrs) 02/17/23 02/17/23 02/17/23 17:46 17:46 17:46 WBC 23.10 H Hgb 14.7 Hct 44.5 Plt Count 442 H PT 12.6 H INR 1.15 Sodium 135 L Potassium 4.8 BUN 21 H Creatinine 1.77 H Glucose 144 H Magnesium 2.3 Total Bilirubin 1.3 H AST 24 ALT 49 Alkaline Phosphatase 65 Lipase 26 Assessment and Plan - Plan Sepsis: Present on admission. Deemed secondary to pneumonia episode. Will continue to follow cultures and adjust antibiotic as needed. Continue empiric antibiotic therapy with vancomycin and Rocephin. Pneumonia: Will continue empiric antibiotic therapy of Rocephin and vancomycin. Pleuritic chest pain is concerning associated pleural effusion. Will monitor trend of white cell closely. Will continue as needed breathing treatment for respiratory support Diabetes type 2: Monitor blood sugar ACHS and continue sliding scale insulin for glucose control. Carb restricted diet to be continued. Hypertension: We will monitor vital signs per unit protocol and continue antihypertensive medications Hyperlipidemia: We will continue statin therapy. Prophylaxis: Lovenox for DVT prophylaxis CODE STATUS: Full code Disposition: We will monitor cultures, continue empiric antibiotic therapy and he will be discharged once he is deemed clinically stable. - Advance Directives Does patient have a Living Will: No Does patient have a Durable POA for Healthcare: No
[2023-02-17 23:09] VITALS: BMI 30.5
[2023-02-17] MEDS: NA CHLORIDE 0.9% 1,000 ML IV SCH (23:23)
[2023-02-18] MEDS ORDERED: ONDANSETRON 4 MG/2 ML VIAL IV PRN
[2023-02-18 00:43] VITALS: O2SAT 98
[2023-02-18] MEDS ORDERED: TRAMADOL HCL 50 MG TAB PO PRN (01:08)
[2023-02-18 02:34] LABS: Absolute Lymphocytes (CBC) 3.3 K/uL (0.7-4.9); Hematocrit 42.5 % (39.6-49.0); Lymphocytes % 13.7 % (15.3-44.8); MCV 91.8 fL (80-100); MPV 8.3 fL (7.6-11.3); Platelets 389 thou/uL (152-406); RBC Red Blood Cell Count 4.64 M/uL (4.33-5.43)
[2023-02-18 03:01] LABS: Potassium 5.2 mEq/L (3.5-5.1)
[2023-02-18] MEDS ORDERED: VANCOMYCIN 1.25 GM in NA CHLORIDE 0.9% 250 ML IVPB ONE (05:30)
[2023-02-18 07:08] LABS: Specific Gravity > 1.030 (1.005-1.030); Transitional Epithelial <5 /HPF (None Seen); Urine Bacteria None Seen /HPF (<20); Urine Bilirubin NEGATIVE (Negative); Urine Blood Negative (Negative); Urine Clarity Clear (Clear); Urine Color Yellow (Yellow); Urine Glucose NEGATIVE (Negative); Urine Mucus Slight /HPF (None Seen); Urine Protein TRACE (Negative); Urine RBC <5 /HPF (None Seen); Urine Urobilinogen Normal (Normal); Urine pH 5.5 (5.0-7.0)
[2023-02-18] MEDS ORDERED: ENOXAPARIN 40 MG/0.4 ML SQ SCH (09:00)
[2023-02-18] MEDS: ENOXAPARIN 30 MG/0.3 ML SQ SCH (10:03)
[2023-02-18] MEDS: CEFTRIAXONE 1,000 MG in NA CHLORIDE 0.9% 50 ML IVPB SCH (10:03)
[2023-02-18] MEDS: NA CHLORIDE 0.9% 1,000 ML IV SCH (10:12)
--- NOTE | 2023-02-18 10:34 | P.PN ---
Subjective Date of Service: 02/18/23 Chief Complaint: Pneumonia, suspected sepsis. - Physical Exam General: Alert, Oriented x3 HEENT: Atraumatic, Normocephalic Neck: Supple Respiratory: Normal air movement Cardiovascular: Normal pulses, Regular rate/rhythm Gastrointestinal: Soft and benign Musculoskeletal: No swelling Neurological: Normal speech Review of Systems peer HPI Physical Examination - Vital Signs Temperature: 97.6 F Blood Pressure: 132/72 Pulse: 84 Respirations: 18 Pulse Ox (%): 98 - Studies Laboratory Data (last 24 hrs) 02/17/23 02/17/23 02/17/23 17:46 17:46 17:46 WBC 23.10 H Hgb 14.7 Hct 44.5 Plt Count 442 H PT 12.6 H INR 1.15 Sodium 135 L Potassium 4.8 BUN 21 H Creatinine 1.77 H Glucose 144 H Magnesium 2.3 Total Bilirubin 1.3 H AST 24 ALT 49 Alkaline Phosphatase 65 Lipase 26 Assessment And Plan - Plan Assessment and Plan Acute hypoxic respiratory failure secondary to pneumonia Sepsis without shock Leukocytosis WBCs 23.10, 24, left shift Trend WBCs, blood cultures UA negative for UTI Flu, RSV, COVID-negative IV fluids, IV antibiotics, nebs, Continue empiric antibiotic therapy with vancomycin and Rocephin. continue empiric antibiotic therapy of Rocephin and vancomycin. Pleuritic chest pain is concerning associated pleural effusion. Elevated total bili, 1.3 direct bili 0.4, indirect bili, 1 Troponin normal 6.2, BNP normal at 193 Liver enzymes normal 24, 49 Chest x-ray mild cardiomegaly,IMPRESSION: No acute intrathoracic process suspected CT of the abdomen pelvis. MPRESSION: Mild COPD.Trace left pleural effusion and pericardial effusion. He said your last day of Wednesday prominent sigmoid diverticulosis coli without diverticulitis.Small fat containing right inguinal hernia. Fatty liver Abdominal ultrasound The liver demonstrates no findings of intrahepatic biliary dilatation.IMPRESSION: Unremarkable examination. Hyperkalemia Acute on chronic kidney injury unknown baseline Nephrology consult Diabetes type 2: Monitor blood sugar ACHS and continue sliding scale insulin for glucose control. Carb restricted diet to be continued. Hypertension: We will monitor vital signs per unit protocol and continue antihypertensive medications Hyperlipidemia: We will continue statin therapy. Prophylaxis: Lovenox for DVT prophylaxis CODE STATUS: Full code Diabetic diet Disposition: We will monitor cultures, continue empiric antibiotic therapy and he will be discharged once he is deemed clinically stable. Discharge Plan: Home - Code Status/Comfort Care Code Status: Full Code Physician Review: Patient Assessed, Agree with Above Assessment and Plan Critical Care: No Time Spent Managing PTS Care (In Minutes): 35
--- NOTE | 2023-02-18 10:52 | P.CNS ---
Date of Consult: 02/18/23 Reason for Consult: AUGUSTO/ CKD Requesting Physician: Rola Orozco Chief Complaint: Pneumonia, suspected sepsis. History of Present Illness: 82-year-old male patient was medical history significant for hypertension, hyperlipidemia, diabetes type 2 and suspected chronic kidney disease admitted for management of underlying sepsis with finding of severely elevated white cell of 23,000. He had complained of feeling of unwellness and feeling very uneasy. He denied overt episode of fever, chills but did have issues with pain on taking deep breath. Pain is in both side of the chest without overt episode of chest pain radiating down into the left arm. He was evaluated in the emergency department and found to have elevated white cell with neutrophil differential count of 80% and also trace pleural effusion. He was started on broad-spectrum antibiotic therapy and was asked to be evaluated for inpatient care. 17:47 This 82 yrs old Male presents to ER via Ambulatory with complaints of Chest jet Pain. 17:47 The patient or guardian reports chest pain that is located primarily in the substernal jet area, anterior chest wall, bilaterally. Onset: yesterday. The pain radiates to neck. Associated signs and symptoms: Pertinent positives: shortness of breath. The chest pain is described as sharp. Duration: The patient or guardian reports multiple episodes, with no pattern. Modifying factors: The symptoms are alleviated by remaining still, the symptoms are aggravated by deep breath, movement. Severity of pain: At its worst the pain was moderate in the emergency department the pain is unchanged. Allergies No Known Drug Allergies Allergy (Verified 02/17/23 23:17) none lactose Adverse Reaction (Verified 07/24/20 09:07) Nausea/Vomiting Home medications list reviewed: Yes Home Medications: Gabapentin [Neurontin*] 100 mg PO DAILY 06/01/19 Losartan Potassium [Cozaar*] 100 mg PO DAILY 06/01/19 Omeprazole 20 mg PO DAILY 06/01/19 Pilocarpine HCl 1 tab PO DAILY 06/01/19 Pioglitazone [Actos*] 1 tab PO DAILY 06/01/19 Simvastatin 20 mg PO DAILY 06/01/19 Metoprolol Tartrate 75 mg PO DAILY 07/22/20 Tamsulosin [Flomax*] 0.4 mg PO DAILY 07/22/20 - Past Medical/Surgical History Diabetic: Yes -: CKD III (Dr. Miles) -: HTN -: DM II -: Neuropathy -: Prostate Cancer -: Colon Polyps -: Diverticulitis -: none Psychosocial/ Personal History: Patient lives at home with his and is retired - Family History Father Medical History: Heart disease Mother Medical History: Heart disease - Social History Smoking Status: Former smoker Alcohol use: Yes CD- Drugs: No Caffeine use: Yes Place of Residence: Home Review of Systems 10-point ROS is otherwise unremarkable General: Weakness, Malaise Respiratory: SOB with Excertion Cardiovascular: Edema Gastrointestinal: Constipation Physical Examination Temp Pulse Resp BP Pulse Ox 97.6 F 84 18 132/72 98 02/18/23 10:36 02/18/23 10:36 02/18/23 10:36 02/18/23 10:36 02/18/23 10:36 General: In no apparent distress, Oriented x3, Cooperative HEENT: Atraumatic Neck: Supple Respiratory: Clear to auscultation bilaterally, Normal air movement Cardiovascular: Regular rate/rhythm, Edema Gastrointestinal: Soft and benign, Non-distended Musculoskeletal: No clubbing, No contractures Integumentary: No rashes, No cyanosis Neurological: Normal speech Laboratory Data (last 24 hrs) 02/17/23 02/17/23 02/17/23 17:46 17:46 17:46 WBC 23.10 H Hgb 14.7 Hct 44.5 Plt Count 442 H PT 12.6 H INR 1.15 Sodium 135 L Potassium 4.8 BUN 21 H Creatinine 1.77 H Glucose 144 H Magnesium 2.3 Total Bilirubin 1.3 H AST 24 ALT 49 Alkaline Phosphatase 65 Lipase 26 Imagings Data: EXAM DESCRIPTION: US - Abdomen Exam Limited - 02/17/2023 8:16 pm CLINICAL HISTORY: ABD PAIN COMPARISON: No comparisons FINDINGS: The gallbladder demonstrates no gallstones. No pericholecystic fluid or gallbladder wall thickening. The common bile duct is normal measuring 3-4 mm. The liver demonstrates no findings of intrahepatic biliary dilatation. IMPRESSION: Unremarkable examination EXAM DESCRIPTION: CT - Chest Abd Pelvis Wo Con - 02/17/2023 8:29 pm CLINICAL HISTORY: Chest and abdomen pain. ABD PAIN COMPARISON: Lung Cancer Screening CT W/O dated 10/15/2021 TECHNIQUE: A limited noncontrast study was performed. All CT scans are performed using dose optimization technique as appropriate and may include automated exposure control or mA/KV adjustment according to patient size. FINDINGS: The lungs are mildly emphysematous.No focal infiltrate seen.Trace left pleural effusion and pericardial effusion.No intrathoracic adenopathy. The liver demonstrates mild fatty infiltration. The spleen, pancreas, adrenal glands and kidneys are within normal limits. Right renal cysts. No hydronephrosis. No bowel obstruction, free air, free fluid or abscess. Normal appendix. Prominent sigmoid diverticulosis coli without diverticulitis. No pathologic lymphadenopathy in the abdomen or pelvis. Small fat containing right inguinal hernia. Mild lumbar degenerative changes. IMPRESSION: Mild COPD.Trace left pleural effusion and pericardial effusion. Prominent sigmoid diverticulosis coli without diverticulitis. Small fat containing right inguinal hernia. EXAM DESCRIPTION: RAD - Chest Single View - 02/17/2023 5:53 pm CLINICAL HISTORY: CHEST PAIN Chest pain. COMPARISON: Chest Pa And Lat (2 Views) dated 02/16/2020; Chest Single View dated 06/01/2019; Abdomen Acute Series dated 08/27/2016; Chest Pa And Lat (2 Views) dated 06/08/2016 FINDINGS: Portable technique limits examination quality. The lungs are grossly clear. The heart is mildly enlarged. No displaced fractures. IMPRESSION: No acute intrathoracic process suspected. Conclusions/Impression: Stage I AUGUSTO CKD IIIa with Proteinuria -No NSAIDs -Continue IVF with NS -Renal US Hyponatremia -Continue IVF with NS Hyperkalemia -Change to low potassium diet -Lokelma prn HTN with CKD -Hold Losartan at this time -Restart Metoprol BID DM II with CKD & Polyneuropathy -RISS -Restart Gabapentin BPH with LUTS -Restart tamsulosin -Bladder US Hospitalist and ER notes reviewed Thank you kindly for the consultation
[2023-02-18] MEDS ORDERED: LACTULOSE 20 GM/30 ML UCUP PO ONE (12:30)
[2023-02-18] MEDS: ACETAMINOPHEN 325 MG TABLET PO PRN (17:12)
[2023-02-18] MEDS: DOCUSATE NA 100 MG CAP PO SCH (21:00)
[2023-02-19 03:02] LABS: Albumin 2.8 g/dL (3.4-5.0); Bilirubin Total 0.8 mg/dL (0.2-1.0); Phosphorus 2.7 mg/dL (2.5-4.9); Potassium 4.8 mEq/L (3.5-5.1); Protein, Total 6.9 g/dL (6.4-8.2); Uric Acid 6.6 mg/dL (3.5-7.2)
[2023-02-19 05:03] LABS: UR PROTEIN 61.8 mg/dL (<11.9); Urine Protein/Creatinine Ratio 0.38 ratio (<0.15)
[2023-02-19 05:06] LABS: Renal Epithelial <5 /HPF (None Seen); Specific Gravity 1.022 (1.005-1.030); Urine Bacteria None Seen /HPF (<20); Urine Bilirubin NEGATIVE (Negative); Urine Blood Negative (Negative); Urine Clarity Clear (Clear); Urine Color Yellow (Yellow); Urine Glucose NEGATIVE (Negative); Urine Mucus Slight /HPF (None Seen); Urine Protein 1+ (Negative); Urine RBC <5 /HPF (None Seen); Urine Urobilinogen Normal (Normal); Urine pH 5.5 (5.0-7.0)
[2023-02-19 05:29] LABS: UR MICROALBUMIN 10.5 mg/dL (< 1.9)
[2023-02-19] MEDS: NA CHLORIDE 0.9% 1,000 ML IV SCH ×2 (05:36→14:25)
[2023-02-19] MEDS: METOPROLOL TAR 50 MG TAB PO SCH ×2 (05:37→17:20)
--- NOTE | 2023-02-19 08:00 | RAD REPORT ---
EXAM DESCRIPTION: US - Urinary Bladder - 02/19/2023 5:25 am CLINICAL HISTORY: AUGUSTO/ CKD/ BPH COMPARISON: No comparisons TECHNIQUE: Real-time sonographic evaluation of the urinary bladder with pre and postvoid volume rajiv urements was performed. FINDINGS: No evidence of bladder mass or ureterocele. Prevoid bladder volume is 33 mL. Postvoid blad myra volume is 20 mL. IMPRESSION: Mild PVR is noted.
--- NOTE | 2023-02-19 08:00 | RAD REPORT ---
EXAM DESCRIPTION: US - Renal Ultrasound-Limited - 02/19/2023 5:25 am CLINICAL HISTORY: AUGUSTO/ CKD/ BPH Flank pain COMPARISON: Abdomen Exam Limited dated 02/17/2023 FINDINGS: Both kidneys are normal in size, shape and echotexture. The right kidney measures 10.2 x 5.1 x 4.9 cm. No hydronephrosis, focal mass or perinephric fluid. Th ere are benign right renal cysts, largest measuring 3 cm. The left kidney measures 10.1 x 4.9 x 4.4 cm. No hydronephrosis, focal mass or perinephric fluid. The urinary bladder is incompletely distended without gross abnormality seen. IMPRESSION: Benign appearing right renal cysts, otherwise negative study.
[2023-02-19] MEDS: ENOXAPARIN 30 MG/0.3 ML SQ SCH (08:09)
[2023-02-19] MEDS: CEFTRIAXONE 1,000 MG in NA CHLORIDE 0.9% 50 ML IVPB SCH (08:10)
[2023-02-19] MEDS: GABAPENTIN 100 MG CAP PO SCH ×2 (08:10→20:49)
[2023-02-19] MEDS: TAMSULOSIN 0.4 MG SR CAP PO SCH (08:10)
[2023-02-19] MEDS: DOCUSATE NA 100 MG CAP PO SCH ×2 (08:10→20:49)
[2023-02-19] MEDS: ACETAMINOPHEN 325 MG TABLET PO PRN (08:10)
--- NOTE | 2023-02-19 11:46 | P.PN ---
Nephrology (S) Pt reports some nausea and sick to stomach sensation after Abx, no increase in dyspnea, no sig cough. Result discussed in detail (O) Vitals, labs, imaging reviewed in the EMR General: In no apparent distress HEENT: Atraumatic, sclera anicteric, not on O2 Neck: Supple Respiratory: Clear to auscultation bilaterally, Normal air movement, no rhonchi or wheezing Cardiovascular: Regular rate/rhythm, no sig peripheral edema Gastrointestinal: soft, obese, NT Musculoskeletal: Shins are non tender Integumentary: No rashes Neurological: Normal speech, alert, oriented Laboratory Data (last 24 hrs)' Reviewed Imagings Data: EXAM DESCRIPTION: US - Abdomen Exam Limited - 02/17/2023 8:16 pm CLINICAL HISTORY: ABD PAIN COMPARISON: No comparisons FINDINGS: The gallbladder demonstrates no gallstones. No pericholecystic fluid or gallbladder wall thickening. The common bile duct is normal measuring 3-4 mm. The liver demonstrates no findings of intrahepatic biliary dilatation. IMPRESSION: Unremarkable examination EXAM DESCRIPTION: CT - Chest Abd Pelvis Wo Con - 02/17/2023 8:29 pm CLINICAL HISTORY: Chest and abdomen pain. ABD PAIN COMPARISON: Lung Cancer Screening CT W/O dated 10/15/2021 TECHNIQUE: A limited noncontrast study was performed. All CT scans are performed using dose optimization technique as appropriate and may include automated exposure control or mA/KV adjustment according to patient size. FINDINGS: The lungs are mildly emphysematous.No focal infiltrate seen.Trace left pleural effusion and pericardial effusion.No intrathoracic adenopathy. The liver demonstrates mild fatty infiltration. The spleen, pancreas, adrenal glands and kidneys are within normal limits. Right renal cysts. No hydronephrosis. No bowel obstruction, free air, free fluid or abscess. Normal appendix. Prominent sigmoid diverticulosis coli without diverticulitis. No pathologic lymphadenopathy in the abdomen or pelvis. Small fat containing right inguinal hernia. Mild lumbar degenerative changes. IMPRESSION: Mild COPD.Trace left pleural effusion and pericardial effusion. Prominent sigmoid diverticulosis coli without diverticulitis. Small fat containing right inguinal hernia. EXAM DESCRIPTION: RAD - Chest Single View - 02/17/2023 5:53 pm CLINICAL HISTORY: CHEST PAIN Chest pain. COMPARISON: Chest Pa And Lat (2 Views) dated 02/16/2020; Chest Single View dated 06/01/2019; Abdomen Acute Series dated 08/27/2016; Chest Pa And Lat (2 Views) dated 06/08/2016 FINDINGS: Portable technique limits examination quality. The lungs are grossly clear. The heart is mildly enlarged. No displaced fractures. IMPRESSION: No acute intrathoracic process suspected. Conclusions/Impression: Underlying CKD III unspecified -Overall renal function stable, renal imaging shows preserved renal size. UA bland with mild microalbuminuria HTN with CKD -K level was only at the ULN briefly, ok to cont ARB as OP for BP but dose could be lowered to 50 mg qd Leukocytosis, unspecified. -W/u not too remarkable, pt on Abx for possible pneumonia/bronchitis, will defer to primary team and pt can f/u with PCP as OP for resolution BPH with LUTS, no retention of urine noted -Cont tamsulosin Troy Herron MD, LARRY
[2023-02-19 12:46] LABS: Absolute Lymphocytes (CBC) 1.4 K/uL (0.7-4.9); Hematocrit 37.6 % (39.6-49.0); Lymphocytes % 9.8 % (15.3-44.8); MCV 91.2 fL (80-100); MPV 8.1 fL (7.6-11.3); Platelets 332 thou/uL (152-406); RBC Red Blood Cell Count 4.12 M/uL (4.33-5.43)
--- NOTE | 2023-02-19 13:36 | P.PN ---
Subjective Date of Service: 02/19/23 Chief Complaint: Pneumonia, suspected sepsis. reports feeling better, no shortness of breath, no fever, or chest pain - Physical Exam General: Alert, Oriented x3 HEENT: Atraumatic, Normocephalic Neck: Supple Respiratory: Normal air movement Cardiovascular: Normal pulses, Regular rate/rhythm Gastrointestinal: Soft and benign Musculoskeletal: No swelling Neurological: Normal speech Review of Systems 10-point ROS is otherwise unremarkable (per hpi) Physical Examination - Vital Signs Temperature: 97 F Blood Pressure: 150/69 Pulse: 69 Respirations: 18 Pulse Ox (%): 98 Assessment And Plan - Plan Assessment and Plan Acute hypoxic respiratory failure secondary to pneumonia Sepsis without shock Leukocytosis WBCs 23.10, 24, left shift, trending down, 14, Trend WBCs, blood cultures (x days negative) UA negative for UTI Flu, RSV, COVID-negative IV fluids, IV antibiotics, nebs, Continue empiric antibiotic therapy with vancomycin and Rocephin. continue empiric antibiotic therapy of Rocephin and vancomycin. Pleuritic chest pain is concerning associated pleural effusion. Imagings Data: EXAM DESCRIPTION: US - Abdomen Exam Limited - 02/17/2023 8:16 pm CLINICAL HISTORY: ABD PAIN COMPARISON: No comparisons FINDINGS: The gallbladder demonstrates no gallstones. No pericholecystic fluid or gallbladder wall thickening. The common bile duct is normal measuring 3-4 mm. The liver demonstrates no findings of intrahepatic biliary dilatation. IMPRESSION: Unremarkable examination EXAM DESCRIPTION: CT - Chest Abd Pelvis Wo Con - 02/17/2023 8:29 pm CLINICAL HISTORY: Chest and abdomen pain. ABD PAIN COMPARISON: Lung Cancer Screening CT W/O dated 10/15/2021 TECHNIQUE: A limited noncontrast study was performed. All CT scans are performed using dose optimization technique as appropriate and may include automated exposure control or mA/KV adjustment according to patient size. FINDINGS: The lungs are mildly emphysematous.No focal infiltrate seen.Trace left pleural effusion and pericardial effusion.No intrathoracic adenopathy. The liver demonstrates mild fatty infiltration. The spleen, pancreas, adrenal g lands and kidneys are within normal limits. Right renal cysts. No hydronephrosis. No bowel obstruction, free air, free fluid or abscess. Normal appendix. Prominent sigmoid diverticulosis coli without diverticulitis. No pathologic lymphadenopathy in the abdomen or pelvis. Small fat containing right inguinal hernia. Mild lumbar degenerative changes. IMPRESSION: Mild COPD.Trace left pleural effusion and pericardial effusion. Prominent sigmoid diverticulosis coli without diverticulitis. Small fat containing right inguinal hernia. EXAM DESCRIPTION: RAD - Chest Single View - 02/17/2023 5:53 pm CLINICAL HISTORY: CHEST PAIN Chest pain. COMPARISON: Chest Pa And Lat (2 Views) dated 02/16/2020; Chest Single View dated 06/01/2019; Abdomen Acute Series dated 08/27/2016; Chest Pa And Lat (2 Views) dated 06/08/2016 FINDINGS: Portable technique limits examination quality. The lungs are grossly clear. The heart is mildly enlarged. No displaced fractures. IMPRESSION: No acute intrathoracic process suspected. Elevated total bili, 1.3 direct bili 0.4, indirect bili, 1 Troponin normal 6.2, BNP normal at 193 Liver enzymes normal 24, 49 Chest x-ray mild cardiomegaly,IMPRESSION: No acute intrathoracic process suspected CT of the abdomen pelvis. MPRESSION: Mild COPD.Trace left pleural effusion and pericardial effusion. He said your last day of Wednesday prominent sigmoid diverticulosis coli without diverticulitis.Small fat containing right inguinal hernia. Fatty liver Abdominal ultrasound The liver demonstrates no findings of intrahepatic biliary dilatation.IMPRESSION: Unremarkable examination. Hyperkalemia Acute on chronic kidney injury unknown baseline Nephrology consult Diabetes type 2: Monitor blood sugar ACHS and continue sliding scale insulin for glucose control. Carb restricted diet to be continued. Hypertension: We will monitor vital signs per unit protocol and continue antihypertensive medications Hyperlipidemia: We will continue statin therapy. Prophylaxis: Lovenox for DVT prophylaxis CODE STATUS: Full code Diabetic diet Disposition: We will monitor cultures, continue empiric antibiotic therapy and he will be discharged once he is deemed clinically stable. Discharge Plan: Home Plan to discharge in: 48 Hours - Code Status/Comfort Care Code Status: Full Code Physician Review: Patient Assessed, Agree with Above Assessment and Plan Critical Care: No Time Spent Managing PTS Care (In Minutes): 35
--- NOTE | 2023-02-19 15:25 | EKG ---
Test Date: 2023-02-17 Test Time: 17:43:19 [employer] Equipment [employer]ic: DAMARIS MEASUREMENT RESULTS: Intervals: Rate: 96 [place]: 136 QRSD: 66 QT: 328 QTc: 414 [place]: P: 61 [place]: 136 QRS: 43 T: 65 INTERPRETIVE STATEMENTS: Normal sinus rhythm Normal ECG Compared to ECG 06/01/2019 01:29:10 Left ventricular hypertrophy no longer present ST (T wave) deviation no longer present Electronically Signed On 02-19-23 15:20:29 [employer] by Floyd Lai
[2023-02-19] MEDS ORDERED: NA CHLORIDE 0.9% 500 ML ONE (20:33)
[2023-02-19] MEDS ORDERED: VANCOMYCIN 1 GM/VIAL ONE (20:43)
[2023-02-19] MEDS ORDERED: VANCOMYCIN 1.75 GM in NA CHLORIDE 0.9% 500 ML IVPB SCH (21:00)
[2023-02-20] MEDS: METOPROLOL TAR 50 MG TAB PO SCH (04:57)
[2023-02-20 07:11] LABS: Absolute Lymphocytes (CBC) 1.5 K/uL (0.7-4.9); Hematocrit 36.7 % (39.6-49.0); Lymphocytes % 12.8 % (15.3-44.8); MCV 90.4 fL (80-100); MPV 7.3 fL (7.6-11.3); Platelets 385 thou/uL (152-406); RBC Red Blood Cell Count 4.06 M/uL (4.33-5.43)
[2023-02-20 07:30] LABS: Magnesium 2.3 mg/dL (1.6-2.4)
--- NOTE | 2023-02-20 08:26 | P.DS ---
Admission Date: 02/17/23 Discharge Date: 02/20/23 Reason for Admission: Pneumonia, suspected sepsis. Brief History of Present Illness: 82-year-old male patient was medical history significant for hypertension, hyperlipidemia, diabetes type 2 and suspected chronic kidney disease admitted for management of underlying sepsis with finding of severely elevated white cell of 23,000. He had complained of feeling of unwellness and feeling very uneasy. He denied overt episode of fever, chills but did have issues with pain on taking deep breath. Pain is in both side of the chest without overt episode of chest pain radiating down into the left arm. He was evaluated in the emergency [facility] and found to have elevated white cell with neutrophil differential count of 80% and also trace pleural effusion. He was started on broad-spectrum antibiotic therapy and was asked to be evaluated for inpatient care. - Physical Exam General: Alert, Oriented x3 HEENT: Atraumatic, Normocephalic Neck: Supple Respiratory: Normal air movement Cardiovascular: Normal pulses, Regular rate/rhythm Gastrointestinal: Soft and benign Musculoskeletal: No swelling Neurological: Normal speech Hospital Course: Assessment and Plan Acute hypoxic respiratory failure secondary to pneumonia Sepsis without shock Leukocytosis WBCs 23.10, 24, left shift, trending down, 14, Trend WBCs, blood cultures (x days negative) UA negative for UTI Flu, RSV, COVID-negative IV fluids, IV antibiotics, nebs, Continue empiric antibiotic therapy with vancomycin and Rocephin. continue empiric antibiotic therapy of Rocephin and vancomycin. Pleuritic chest pain is concerning associated pleural effusion. Imagings Data: EXAM DESCRIPTION: US - Abdomen Exam Limited - 02/17/2023 8:16 pm CLINICAL HISTORY: ABD PAIN COMPARISON: No comparisons FINDINGS: The gallbladder demonstrates no gallstones. No pericholecystic fluid or gallbladder wall thickening. The common bile duct is normal measuring 3-4 mm. The liver demonstrates no findings of intrahepatic biliary dilatation. IMPRESSION: Unremarkable examination EXAM DESCRIPTION: CT - Chest Abd Pelvis Wo Con - 02/17/2023 8:29 pm CLINICAL HISTORY: Chest and abdomen pain. ABD PAIN COMPARISON: Lung Cancer Screening CT W/O dated 10/15/2021 TECHNIQUE: A limited noncontrast study was performed. All CT scans are performed using dose optimization technique as appropriate and may include automated exposure control or mA/KV adjustment according to patient size. FINDINGS: The lungs are mildly emphysematous.No focal infiltrate seen.Trace left pleural effusion and pericardial effusion.No intrathoracic adenopathy. The liver demonstrates mild fatty infiltration. The spleen, pancreas, adrenal glands and kidneys are within normal limits. Right renal cysts. No hydronephrosis. No bowel obstruction, free air, free fluid or abscess. Normal appendix. Prominent sigmoid diverticulosis coli without diverticulitis. No pathologic lymphadenopathy in the abdomen or pelvis. Small fat containing right inguinal hernia. Mild lumbar degenerative changes. IMPRESSION: Mild COPD.Trace left pleural effusion and pericardial effusion. Prominent sigmoid diverticulosis coli without diverticulitis. Small fat containing right inguinal hernia. EXAM DESCRIPTION: RAD - Chest Single View - 02/17/2023 5:53 pm CLINICAL HISTORY: CHEST PAIN Chest pain. COMPARISON: Chest Pa And Lat (2 Views) dated 02/16/2020; Chest Single View dated 06/01/2019; Abdomen Acute Series dated 08/27/2016; Chest Pa And Lat (2 Views) dated 06/08/2016 FINDINGS: Portable technique limits examination quality. The lungs are grossly clear. The heart is mildly enlarged. No displaced fractures. IMPRESSION: No acute intrathoracic process suspected. Elevated total bili, 1.3 direct bili 0.4, indirect bili, 1 Troponin normal 6.2, BNP normal at 193 Liver enzymes normal 24, 49 Chest x-ray mild cardiomegaly,IMPRESSION: No acute intrathoracic process suspected CT of the abdomen pelvis. MPRESSION: Mild COPD.Trace left pleural effusion and pericardial effusion. He said your last day of Wednesday prominent sigmoid diverticulosis coli without diverticulitis.Small fat containing right inguinal hernia. Fatty liver Abdominal ultrasound The liver demonstrates no findings of intrahepatic biliary dilatation.IMPRESSION: Unremarkable examination. Hyperkalemia Acute on chronic kidney injury unknown baseline Nephrology consult -Nephrology Underlying CKD III unspecified -Overall renal function stable, renal imaging shows preserved renal size. UA bland with mild microalbuminuria HTN with CKD -K level was only at the ULN briefly, ok to cont ARB as OP for BP but dose could be lowered to 50 mg qd BPH with LUTS, no retention of urine noted -Cont tamsulosin Diabetes type 2: Monitor blood sugar ACHS and continue sliding scale insulin for glucose control. Carb restricted diet to be continued. Hypertension: We will monitor vital signs per unit protocol and continue antihypertensive medications Hyperlipidemia: We will continue statin therapy. INSTRUCTIONS: Physician Discharge Instructions: -DC IV and DC home -Follow-up with PCP in 1 to 2 weeks -Please call Dr. Orozco at [phone] if any questions regarding hospital stay -Please call nursing station at [phone] if any nursing or medication questions -Return to the emergency room if symptoms worsen Vital Signs/Physical Exam: Temp Pulse Resp BP Pulse Ox 98.1 F 78 18 138/70 96 02/20/23 07:04 02/20/23 07:04 02/20/23 07:04 02/20/23 07:04 02/20/23 07:04 Laboratory Data at Discharge: WBC 11.90 thou/uL (4.3-10.9) H 02/20/23 06:59 Hgb 12.0 g/dL (13.6-17.9) L 02/20/23 06:59 Hct 36.7 % (39.6-49.0) L 02/20/23 06:59 Plt Count 385 thou/uL (152-406) 02/20/23 06:59 PT 12.6 SECONDS (9.5-12.5) H 02/17/23 17:46 INR 1.15 02/17/23 17:46 Sodium 134 mEq/L (136-145) L 02/20/23 06:59 Potassium 4.0 mEq/L (3.5-5.1) 02/20/23 06:59 BUN 19 mg/dL (7-18) H 02/20/23 06:59 Creatinine 1.39 mg/dL (0.70-1.30) H 02/20/23 06:59 Glucose 112 mg/dL (74-106) H 02/20/23 06:59 Uric Acid 6.6 mg/dL (3.5-7.2) 02/19/23 02:04 Phosphorus 2.7 mg/dL (2.5-4.9) 02/19/23 02:04 Magnesium 2.3 mg/dL (1.6-2.4) 02/20/23 06:59 Total Bilirubin 0.8 mg/dL (0.2-1.0) 02/19/23 02:04 AST 17 U/L (15-37) 02/19/23 02:04 ALT 34 U/L (16-61) 02/19/23 02:04 Alkaline Phosphatase 60 U/L (45-117) 02/19/23 02:04 Lipase 26 U/L (13-75) 02/17/23 17:46 Home Medications: Gabapentin [Neurontin*] 100 mg PO DAILY 06/01/19 Losartan Potassium [Cozaar*] 100 mg PO DAILY 06/01/19 Omeprazole 20 mg PO DAILY 06/01/19 Pilocarpine HCl 1 tab PO DAILY 06/01/19 Pioglitazone [Actos*] 1 tab PO DAILY 06/01/19 Simvastatin 20 mg PO DAILY 06/01/19 Metoprolol Tartrate 75 mg PO DAILY 07/22/20 Tamsulosin [Flomax*] 0.4 mg PO DAILY 07/22/20 Followup: Alejandra Miles MD [Primary Care Provider] -
[2023-02-20] MEDS: GABAPENTIN 100 MG CAP PO SCH (08:28)
[2023-02-20] MEDS: DOCUSATE NA 100 MG CAP PO SCH (08:28)
[2023-02-20] MEDS: TAMSULOSIN 0.4 MG SR CAP PO SCH (08:28)
[2023-02-20] MEDS: ENOXAPARIN 30 MG/0.3 ML SQ SCH (08:28)
[2023-02-20] MEDS: CEFTRIAXONE 1,000 MG in NA CHLORIDE 0.9% 50 ML IVPB SCH (08:28)
[2023-02-20] MEDS: NA CHLORIDE 0.9% 1,000 ML IV SCH (08:36)
[2023-02-20] MEDS ORDERED: LOSARTAN POTASSIUM 50 MG TABLET PO SCH (14:00)
[2023-02-20] MEDS ORDERED: VANCOMYCIN 1.75 GM in NA CHLORIDE 0.9% 500 ML IVPB SCH (17:30)
[2023-02-21 12:08] VITALS: BP 132/72; TEMP 97.6
== END 2023-02-20 13:37 | disposition home or self-care (01) | DRG 871 ==
LOC: ER 17:20 → 2ND 21:32
PROVIDERS: ADMIT Internal Medicine Nephrology; ATTEND Hospitalist
DX: A41.9 Sepsis, unspecified organism (principal); J18.9 Pneumonia, unspecified organism; J96.01 Acute respiratory failure with hypoxia; N17.9 Acute kidney failure, unspecified; E87.1 Hypo-osmolality and hyponatremia; E78.5 Hyperlipidemia, unspecified; I12.9 Hypertensive chronic kidney disease with stage 1 through stage 4 chronic kidney disease, or unspecified chronic kidney disease; N18.31 Chronic kidney disease, stage 3a; E11.22 Type 2 diabetes mellitus with diabetic chronic kidney disease; E11.42 Type 2 diabetes mellitus with diabetic polyneuropathy; N40.1 Benign prostatic hyperplasia with lower urinary tract symptoms; E87.5 Hyperkalemia; K21.9 Gastro-esophageal reflux disease without esophagitis; R65.20 Severe sepsis without septic shock; Z86.73 Personal history of transient ischemic attack (TIA), and cerebral infarction without residual deficits; Z85.46 Personal history of malignant neoplasm of prostate; Z79.899 Other long term (current) drug therapy
CPT/HCPCS: 0241U; 36415; 71045; 71250; 74176; 76705; 76775; 76857; 80048; 80053; 80076; 80202; 81001; 82043; 82570; 83605; 83690; 83735; 83880; 84100; 84156; 84484; 84550; 85025; 85610; 87040; 93005; 96361; 96365; 96367; 96375; 99285; J0696; J1650; J2405; J2543; J7030; J7040; J7050

== ENCOUNTER 2023-12-26 00:08 | Observation (INO) | payer OTHER ==
[2023-12-26 01:28] LABS: Absolute Eosinophils 0.1 K/uL (0-0.5); Absolute Lymphocytes (CBC) 1.1 K/uL (0.7-4.9); Absolute Monocytes 0.9 K/uL (0.1-1.3); Absolute Neutrophil 15.4 K/uL (1.8-8.0); Basophils % 0.2 % (0-1.3); Eosinophils % 0.6 % (0-4.4); Hematocrit 45.5 % (39.6-49.0); Hemoglobin 14.8 g/dL (13.6-17.9); Lymphocytes % 6.3 % (15.3-44.8); MCH 29.6 pg (27.0-35.0); MCHC 32.5 g/dL (32.0-36.0); MCV 90.9 fL (80-100); MPV 8.3 fL (7.6-11.3); Monocytes % 5.4 % (3.3-12.3); Neutrophils % 87.5 % (41.7-73.7); Platelets 256 thou/uL (152-406); RBC Red Blood Cell Count 5.01 M/uL (4.33-5.43); Red Cell Distribution Width 13.9 % (12.1-15.2)
[2023-12-26 01:39] LABS: Albumin 3.8 g/dL (3.4-5.0); Albumin/Globulin Ratio 1.1 (1.1-1.8); Anion Gap 10.3 mEq/L (5.0-15.0); Bilirubin Total 0.9 mg/dL (0.2-1.0); Globulin 3.6 g/dL (2.3-3.5); Potassium 4.3 mEq/L (3.5-5.1); Protein, Total 7.4 g/dL (6.4-8.2)
[2023-12-26] MEDS ORDERED: NA CHLORIDE 0.9% 1,000 ML ONE (02:07)
[2023-12-26] MEDS ORDERED: NA CHLORIDE 0.9% 500 ML ONE ×2 (02:07→03:17)
[2023-12-26] MEDS ORDERED: ONDANSETRON 4 MG/2 ML VIAL ONE (02:07)
[2023-12-26] MEDS ORDERED: METOCLOPRAMIDE 10 MG/2mL INJ ONE (02:07)
--- NOTE | 2023-12-26 02:09 | RAD REPORT ---
EXAM: XR Chest, 1 View CLINICAL HISTORY: Chest pain. TECHNIQUE: Frontal view of the chest. COMPARISON: XR Chest 02/17/2023. FINDINGS: Lungs: Unremarkable. No consolidation. Pleural space: Unremarkable. No pneumothorax. Heart: Unremarkable. No cardiomegaly. Mediastinum: Unremarkable. Normal mediastinal contour. Bones/joints: Unremarkable. No acute fracture. IMPRESSION: No acute disease. Electronically signed by: Kyle Valencia MD 12/26/2023 02:05 AM CDT Due to temporary technical issues with the PACS/[employer] reporting system, reports are being michelle d by the in-house radiologist without review as a courtesy to ensure prompt reporting the interpreting radiologist is fully responsible for the content of the report. Transcribed Date/Time: 12/26/2023 2:08 AM
[2023-12-26 02:43] LABS: Band Neutrophils 14 % (0-1); Differential Total Cells Count 100; Lymphocytes 7 % (15-42); Monocytes 7 % (0-10); Reactive Lymphocytes 1 %; Segmented Neutrophils 71 % (40-80)
[2023-12-26 02:44] LABS: Blood Morphology Comment NOT SEEN (NOT SEEN); Platelet Estimate ADEQ
[2023-12-26 03:07] LABS: Specific Gravity 1.023 (1.005-1.030); Sqamous Epithelial None Seen /HPF (None Seen); Urine Bacteria None Seen /HPF (<20); Urine Bilirubin NEGATIVE (Negative); Urine Blood Negative (Negative); Urine Clarity Clear (Clear); Urine Color Yellow (Yellow); Urine Culture Reflex Order NOT NEEDED; Urine Glucose NEGATIVE (Negative); Urine Ketones NEGATIVE (Negative); Urine Micro Reflex YN NO BILL MICROSCOPIC; Urine Mucus Slight /HPF (None Seen); Urine Nitrite NEGATIVE (Negative); Urine Protein NEGATIVE (Negative); Urine RBC <5 /HPF (None Seen); Urine Urobilinogen Normal (Normal); Urine WBC <5 /HPF (<5); Urine pH 5.5 (5.0-7.0)
[2023-12-26] MEDS ORDERED: VANCOMYCIN 1 GM/VIAL ONE (03:16)
[2023-12-26] MEDS ORDERED: CEFEPIME 2 GM VIAL ONE (03:16)
[2023-12-26] MEDS ORDERED: NA CHLORIDE 0.9% 100 ML ONE (03:17)
--- NOTE | 2023-12-26 05:01 | ER ---
Nurse's Notes [facility] Name: Vincenzo Mosquera Age: 83 yrs Sex: Male : 1940 Arrival Date: 12/26/2023 Time: 00:08 Bed 7 Private MD: Diagnosis: Sepsis, unspecified organism;Acute enteritis, nausea vomiting, moderate dehydration, sepsis without septic shock Presentation: 12/25 00:43 Chief complaint: Patient states: c/o n/v/d since 1800 last evening. Coronavirus screen: al5 At this time, the client does not indicate any symptoms associated with coronavirus-19. Ebola Screen: No symptoms or risks identified at this time. Initial Sepsis Screen: Does the patient meet any 2 criteria? No. Patient's initial sepsis screen is negative. Does the patient have a suspected source of infection? No. Patient's initial sepsis screen is negative. Risk Assessment: Do you want to hurt yourself or someone else? Patient reports no desire to harm self or others. Onset of symptoms was December 25, 2023. 00:43 Method Of Arrival: Ambulatory al5 00:43 Acuity: MARIA EUGENIA 3 al5 Triage Assessment: 00:47 General: Appears in no apparent distress. Behavior is calm, cooperative. Pain: al5 Complains of pain in generalized Quality of pain is described as aching. EENT: No signs and/or symptoms were reported regarding the EENT system. Neuro: Level of Consciousness is awake, alert, obeys commands, Oriented to person, place, time, situation. Cardiovascular: Patient's skin is warm and dry. Respiratory: Airway is patent Respiratory effort is even, unlabored, Respiratory pattern is regular, symmetrical. GI: Abdomen is round no tenderness or pain noted Reports diarrhea, nausea, vomiting. : No signs and/or symptoms were reported regarding the genitourinary system. Derm: Skin is intact, Skin is pink, warm \T\ dry. normal. Musculoskeletal: No signs and/or symptoms reported regarding the musculoskeletal system. Historical: - Allergies: 00:45 No Known Allergies; al5 - Home Meds: 00:45 aspirin 81 mg Oral TbEC 1 tab twice a day [Active]; Centrum Silver Oral daily [Active]; al5 gabapentin 100 mg Oral cap 1 cap nightly [Active]; Fish Oil 1 Oral cap twice a day [Active]; CoQ-10 100 mg Oral cap twice a day [Active]; coconut oil 1 Oral cap twice a day [Active]; Cinnamon 500 mg Oral cap 2 cap twice a day [Active]; magnesium oxide 500 mg Oral tab nightly [Active]; pioglitazone 15 mg Oral tab 1 tab once daily [Active]; metoprolol tartrate 75 mg Oral tab 1 tab once daily [Active]; Vitamin D3 5 Oral tab daily [Active]; Super B Complex + C 150 mg Oral tab daily [Active]; simvastatin 20 mg Oral tab 1 tab once daily [Active]; omeprazole 20 mg Oral cpDR 1 cap once daily [Active]; pilocarpine HCl 5 mg Oral tab 1 tab twice a day [Active]; - PMHx: 00:45 acid reflux; Diabetes - NIDDM; Diverticulitis; Hyperlipidemia; Hypertension; al5 neuropathy; Prostate Cancer; Sjogern's; - PSHx: 00:45 None; al5 - Immunization history:: Adult Immunizations up to date. - Infectious Disease History:: Denies. - Social history:: Smoking status: Patient denies any tobacco usage or history of. - Family history:: not pertinent. Screenin:50 [facility] ED Fall Risk Assessment (Adult) History of falling in the last 3 months, al5 including since admission No falls in past 3 months (0 pts) Confusion or Disorientation No (0 pts) Intoxicated or Sedated No (0 pts) Impaired Gait No (0 pts) Mobility Assist Device Used No (0 pt) Altered Elimination No (0 pt) Score/Fall Risk Level 0 - 2 = Low Risk Oriented to surroundings, Maintained a safe environment, Hourly rounding (assess needs \T\ fall precautionary measures) done. Abuse screen: Denies threats or abuse. Denies injuries from another. Nutritional screening: No deficits noted. Tuberculosis screening: No symptoms or risk factors identified. Assessment: 00:49 GI: Abdomen is round Abd is non tender X 4 quads Reports diarrhea, nausea, vomiting. al5 02:04 Reassessment: Patient appears in no apparent distress at this time. Patient and/or al5 family updated on plan of care and expected duration. Pain level reassessed. Patient is alert, oriented x 3, equal unlabored respirations, skin warm/dry/pink. states he no longer has nausea Patient states feeling better. 03:00 Reassessment: Patient and/or family updated on plan of care and expected duration. Pain ha1 level reassessed. Patient is alert, oriented x 3, equal unlabored respirations, skin warm/dry/pink. Patient states feeling better. Patient states symptoms have improved. 04:39 Reassessment: Patient appears in no apparent distress at this time. No changes from al5 previously documented assessment. Patient and/or family updated on plan of care and expected duration. Pain level reassessed. Patient is alert, oriented x 3, equal unlabored respirations, skin warm/dry/pink. 06:06 Reassessment: Patient appears in no apparent distress at this time. No changes from al5 previously documented assessment. Patient and/or family updated on plan of care and expected duration. Pain level reassessed. Patient is alert, oriented x 3, equal unlabored respirations, skin warm/dry/pink. patient admitted. Vital Signs: 00:30 BP 173 / 70; Pulse 65; Resp 18; Pulse Ox 98% on R/A; al5 00:43 BP 173 / 70; Pulse 66; Resp 18; Temp 98.4; Pulse Ox 97% ; Weight 89.81 kg; Height 5 ft. al5 9 in. ; Pain 0/10; 01:00 BP 160 / 73; Pulse 66; Resp 18; Pulse Ox 98% on R/A; al5 01:30 BP 145 / 74; Pulse 69; Resp 18; Pulse Ox 99% on R/A; al5 01:30 BP 144 / 60; Pulse 67; Resp 18; Pulse Ox 98% on R/A; al5 02:20 BP 137 / 87; Pulse 66; Resp 17 S; Pulse Ox 97% on R/A; ha1 02:30 BP 142 / 53; Pulse 68; Resp 17; Pulse Ox 97% on R/A; al5 03:00 BP 138 / 57; Pulse 64; Resp 17; Pulse Ox 97% on R/A; al5 03:15 BP 138 / 66; Pulse 67; Resp 17 S; Pulse Ox 99% on R/A; ha1 03:30 BP 142 / 64; Pulse 66; Resp 18; Pulse Ox 98% on R/A; al5 04:00 BP 140 / 62; Pulse 64; Resp 18; Pulse Ox 99% on R/A; al5 04:30 BP 137 / 65; Pulse 63; Resp 18; Pulse Ox 99% on R/A; al5 05:00 BP 153 / 66; Pulse 64; Resp 17; Pulse Ox 100% on R/A; al5 05:30 BP 150 / 63; Pulse 62; Resp 16; Pulse Ox 100% on R/A; al5 00:43 Body Mass Index 29.24 (89.81 kg, 175.26 cm) al5 00:43 Pain Scale: Adult al5 [place] Coma Score: 05:00 Eye Response: spontaneous(4). Motor Response: obeys commands(6). Verbal Response: sp4 oriented(5). Total: 15. ED Course: 00:10 Patient arrived in ED. jj6 00:37 Yg Ordonez MD is Attending Physician. sp4 00:43 April Parrish, USHA is Primary Nurse. al5 00:45 Triage completed. al5 00:47 Arm band placed on right wrist. Patient placed in the treatment room, on a stretcher. al5 00:50 Patient has correct armband on for positive identification. Bed in low position. Call al5 light in reach. Side rails up X2. Provided Education on: plan of care. 00:50 No provider procedures requiring assistance completed. al5 00:55 Inserted saline lock: 20 gauge in left antecubital area, using aseptic technique. Blood sa1 collected. Flushed with 10 mL NS. 01:00 EKG done, by ED staff, reviewed by Yg Ordonez MD. sa1 01:05 XRAY Chest (1 view) In Process Unspecified. EDMS 01:09 First set of blood cultures drawn by me. sa1 03:25 CT Chest Abdomen Pelvis W/O Contrast In Process Unspecified. EDMS 04:59 Ten Yip MD is Hospitalizing Provider. sp4 05:22 Patient admitted, IV remains in place. al5 Administered Medications: 02:18 Drug: Ondansetron IVP 8 mg IVP once; over 2 minutes Route: IVP; Site: left antecubital; al5 03:44 Follow up: Response: No adverse reaction; Nausea is decreased al5 02:18 Drug: metoCLOPramide IVP 10 mg IVP once; over 1 to 2 minutes Route: IVP; Site: left al5 antecubital; 03:44 Follow up: Response: No adverse reaction; Nausea is decreased al5 02:18 Drug: NS 0.9% IV 500 ml IV at bolus continuous Route: IV; Rate: bolus; Site: left al5 antecubital; 03:44 Follow up: Response: No adverse reaction; IV Status: Completed infusion; IV Intake: al5 500ml 05:22 Follow up: Response: No adverse reaction; IV Status: Infusion continued upon admission al5 03:44 Drug: NS 0.9% IV 1000 ml IV at 125 ml/hr continuous Route: IV; Rate: 125 ml/hr; Site: al5 left antecubital; 06:08 Follow up: Response: No adverse reaction; IV Status: Infusion continued upon admission al5 03:44 Drug: Cefepime IVPB 2 grams IVPB at 200 ml/hr once over 30 mins; (mix in NS 100 mL) al5 Route: IVPB; Rate: 200 ml/hr; Infused Over: 30 mins; Site: left antecubital; 04:38 Follow up: Response: No adverse reaction; IV Status: Completed infusion; IV Intake: al5 100ml 05:23 Follow up: Response: No adverse reaction al5 04:38 Drug: vancoMYCIN IVPB 2 grams IVPB at calculated rate once Route: IVPB; Rate: al5 calculated rate; Site: left antecubital; 05:22 Follow up: IV Status: Infusion continued upon admission al5 Medication: 00:49 VIS not applicable for this client. al5 Intake: 03:44 IV: 500ml; Total: 500ml. al5 04:38 IV: 100ml; Total: 600ml. al5 Outcome: 05:00 Decision to Hospitalize by Provider. sp4 06:07 Admitted to Med/surg accompanied by nurse, via wheelchair, room 221, with chart, al5 06:07 Condition: stable 06:07 Instructed on the need for admit, 06:19 Patient left the ED. vc1 Signatures: Dispatcher [employer] EDMS Kraely Villegas Vanessa, RN RN vc1 Yasmin Roper RN RN ha1 Yg Ordonez MD MD sp4 April Parrish RN RN al5 Sultan Joyce [facility] Corrections: (The following items were deleted from the chart) 00:47 00:45 Home Meds: losartan 100 mg Oral tab 1 tab once daily; al5 al5
--- NOTE | 2023-12-26 05:01 | EDPHYS ---
Physician Documentation [facility] Name: Vincenzo Mosquera Age: 83 yrs Sex: Male : 1940 Arrival Date: 12/26/2023 Time: 00:08 Bed 7 Private MD: ED Physician Yg Ordonez HPI: 12/25 00:37 This 83 yrs old Male presents to ER via Unassigned with complaints of sp4 Nausea/Vomiting. 05:00 Patient is a very pleasant man with history of diabetes, acid reflux, diverticulitis, sp4 hyperlipidemia, hypertension neuropathy. Patient presents with acute onset of abdominal discomfort and profuse vomiting at home. . 05:01 Patient's medications at home include gabapentin, losartan, omeprazole, pilocarpine, sp4 pioglitazone, simvastatin, metoprolol, tamsulosin . . Historical: - Allergies: 00:45 No Known Allergies; al5 - Home Meds: 00:45 aspirin 81 mg Oral TbEC 1 tab twice a day [Active]; Centrum Silver Oral daily [Active]; al5 gabapentin 100 mg Oral cap 1 cap nightly [Active]; Fish Oil 1 Oral cap twice a day [Active]; CoQ-10 100 mg Oral cap twice a day [Active]; coconut oil 1 Oral cap twice a day [Active]; Cinnamon 500 mg Oral cap 2 cap twice a day [Active]; magnesium oxide 500 mg Oral tab nightly [Active]; pioglitazone 15 mg Oral tab 1 tab once daily [Active]; metoprolol tartrate 75 mg Oral tab 1 tab once daily [Active]; Vitamin D3 5 Oral tab daily [Active]; Super B Complex + C 150 mg Oral tab daily [Active]; simvastatin 20 mg Oral tab 1 tab once daily [Active]; omeprazole 20 mg Oral cpDR 1 cap once daily [Active]; pilocarpine HCl 5 mg Oral tab 1 tab twice a day [Active]; - PMHx: 00:45 acid reflux; Diabetes - NIDDM; Diverticulitis; Hyperlipidemia; Hypertension; al5 neuropathy; Prostate Cancer; Sjogern's; - PSHx: 00:45 None; al5 - Immunization history:: Adult Immunizations up to date. - Infectious Disease History:: Denies. - Social history:: Smoking status: Patient denies any tobacco usage or history of. - Family history:: not pertinent. ROS: 05:00 Constitutional: Negative for fever, chills, and weight loss, abdominal discomfort, sp4 positive nausea and vomiting 05:00 All other systems are negative, Exam: 04:56 Constitutional: This is a well developed, well nourished patient who is awake, alert, sp4 and in no acute distress. Head/Face: Normocephalic, atraumatic. Eyes: Pupils equal round and reactive to light, extra-ocular motions intact. Lids and lashes normal. Conjunctiva and sclera are not injected. Cornea within normal limits. Periorbital areas with no swelling, redness, or edema. ENT: Nares patent. No nasal discharge, no septal abnormalities noted. Tympanic membranes are normal and external auditory canals are clear. Oropharynx with no redness, swelling, or masses, exudates, or evidence of obstruction, uvula midline. Mucous membranes moist. Neck: Trachea midline, no thyromegaly or masses palpated, and no cervical lymphadenopathy. Supple, full range of motion without nuchal rigidity, or vertebral point tenderness. Chest/axilla: Normal chest wall appearance and motion. Nontender with no deformity. No lesions are appreciated. Cardiovascular: Regular rate and rhythm with a normal S1 and S2. No gallops, murmurs, or rubs. Normal PMI, no JVD. No pulse deficits. Respiratory: Lungs have equal breath sounds bilaterally, clear to auscultation and percussion. No rales, rhonchi or wheezes noted. No increased work of breathing, no retractions or nasal flaring. Abdomen/GI: Soft, with normal bowel sounds. No distension or tympany. No guarding or rebound. No evidence of tenderness throughout. Back: No spinal tenderness. No costovertebral tenderness. Skin: Warm, dry with normal turgor. Normal color with no rashes, no lesions, and no evidence of cellulitis. MS/ Extremity: Pulses equal, no cyanosis. Neurovascular intact. Full, normal range of motion. Neuro: Awake and alert, GCS 15, oriented to person, place, time, and situation. Cranial nerves II-XII grossly intact. Motor strength 5/5 in all extremities. Sensory grossly intact. Psych: Awake, alert, with orientation to person, place and time. Behavior, mood, and affect are within normal limits 04:56 ECG was reviewed by the Attending Physician. EG at 0057 sinus rhythm rate 69 Vital Signs: 00:30 BP 173 / 70; Pulse 65; Resp 18; Pulse Ox 98% on R/A; al5 00:43 BP 173 / 70; Pulse 66; Resp 18; Temp 98.4; Pulse Ox 97% ; Weight 89.81 kg; Height 5 ft. al5 9 in. ; Pain 0/10; 01:00 BP 160 / 73; Pulse 66; Resp 18; Pulse Ox 98% on R/A; al5 01:30 BP 145 / 74; Pulse 69; Resp 18; Pulse Ox 99% on R/A; al5 01:30 BP 144 / 60; Pulse 67; Resp 18; Pulse Ox 98% on R/A; al5 02:20 BP 137 / 87; Pulse 66; Resp 17 S; Pulse Ox 97% on R/A; ha1 02:30 BP 142 / 53; Pulse 68; Resp 17; Pulse Ox 97% on R/A; al5 03:00 BP 138 / 57; Pulse 64; Resp 17; Pulse Ox 97% on R/A; al5 03:15 BP 138 / 66; Pulse 67; Resp 17 S; Pulse Ox 99% on R/A; ha1 03:30 BP 142 / 64; Pulse 66; Resp 18; Pulse Ox 98% on R/A; al5 04:00 BP 140 / 62; Pulse 64; Resp 18; Pulse Ox 99% on R/A; al5 04:30 BP 137 / 65; Pulse 63; Resp 18; Pulse Ox 99% on R/A; al5 05:00 BP 153 / 66; Pulse 64; Resp 17; Pulse Ox 100% on R/A; al5 05:30 BP 150 / 63; Pulse 62; Resp 16; Pulse Ox 100% on R/A; al5 00:43 Body Mass Index 29.24 (89.81 kg, 175.26 cm) al5 00:43 Pain Scale: Adult al5 [place] Coma Score: 05:00 Eye Response: spontaneous(4). Motor Response: obeys commands(6). Verbal Response: sp4 oriented(5). Total: 15. MDM: 00:38 Medical Screening Exam initiated sp4 04:44 ED course: EXAM: XR Chest, 1 View CLINICAL HISTORY: Chest pain. TECHNIQUE: Frontal view sp4 of the chest. COMPARISON: XR Chest 02/17/2023. FINDINGS: Lungs: Unremarkable. No consolidation. Pleural space: Unremarkable. No pneumothorax. Heart: Unremarkable. No cardiomegaly. Mediastinum: Unremarkable. Normal mediastinal contour. Bones/joints: Unremarkable. No acute fracture. IMPRESSION: No acute disease. . 04:56 Differential diagnosis: Nonspecific abd pain, gastritis, pancreatitis, diverticulitis, sp4 viral gastroenteritis, gastroenteritis. Data reviewed: vital signs, nurses notes, lab test result(s), radiologic studies, CT scan, plain films. Consideration of Admission/Observation Patient was admitted/placed on observation. Escalation of care including admission/observation considered. 04:58 ED course: Sepsis reevaluation complete, septic fluid bolus was not administered sp4 secondary to concern for potential coronary artery disease and CHF.. 12/25 00:34 Order name: CBC with Diff; Complete Time: 04:42 ha1 12/25 00:34 Order name: CMP; Complete Time: 01:59 ha1 12/25 00:34 Order name: Lipase; Complete Time: 01:59 ha1 12/25 00:38 Order name: Urinalysis W/Microscopic; Complete Time: 04:42 sp4 12/25 00:38 Order name: Troponin HS; Complete Time: 04:42 sp4 12/25 00:54 Order name: Blood Culture Adult (2) sp4 12/25 00:55 Order name: Lactate w/ 2H reflex if indic.; Complete Time: 01:59 sp4 12/25 01:32 Order name: Manual Differential; Complete Time: 04:42 EDMS 12/25 03:57 Order name: Ghost Lactate-NO COLLECT Timer; Complete Time: 04:42 EDMS 12/25 05:09 Order name: Lactate Sepsis 2 HR Follow-up EDMS 12/25 05:10 Order name: Urinalysis w/ reflexes EDMS 12/25 05:10 Order name: CBC with Automated Diff EDMS 12/25 05:10 Order name: CBC with Automated Diff EDMS 12/25 05:10 Order name: Comprehensive Metabolic Panel EDMS 12/25 05:10 Order name: Comprehensive Metabolic Panel EDMS 12/25 00:38 Order name: XRAY Chest (1 view) sp4 12/25 01:59 Order name: CT Chest Abdomen Pelvis W/O Contrast sp4 12/25 00:38 Order name: EKG; Complete Time: 00:38 sp4 12/25 00:34 Order name: IV Saline Lock; Complete Time: 00: ha1 12/25 00:34 Order name: Labs collected and sent; Complete Time: 00: ha1 12/25 00:38 Order name: Cardiac monitoring; Complete Time: 01:32 sp4 12/25 00:38 Order name: EKG - Nurse/Tech; Complete Time: : sp4 12/25 00:38 Order name: O2 Per Protocol; Complete Time: 00: sp4 12/25 00:38 Order name: O2 Sat Monitoring; Complete Time: :4 EC:56 Rate is 69 beats/min. Rhythm is regular, Normal Sinus Rhythm. QRS [place] is Normal. AL sp4 interval is normal. QRS interval is normal. QT interval is normal. No Q waves. T waves are Normal. No ST changes noted. Clinical impression: Normal ECG. Interpreted by me. Reviewed by me. Administered Medications: 02:18 Drug: Ondansetron IVP 8 mg IVP once; over 2 minutes Route: IVP; Site: left antecubital; al5 03:44 Follow up: Response: No adverse reaction; Nausea is decreased al5 02:18 Drug: metoCLOPramide IVP 10 mg IVP once; over 1 to 2 minutes Route: IVP; Site: left al5 antecubital; 03:44 Follow up: Response: No adverse reaction; Nausea is decreased al5 02:18 Drug: NS 0.9% IV 500 ml IV at bolus continuous Route: IV; Rate: bolus; Site: left al5 antecubital; 03:44 Follow up: Response: No adverse reaction; IV Status: Completed infusion; IV Intake: al5 500ml 05:22 Follow up: Response: No adverse reaction; IV Status: Infusion continued upon admission al5 03:44 Drug: NS 0.9% IV 1000 ml IV at 125 ml/hr continuous Route: IV; Rate: 125 ml/hr; Site: al5 left antecubital; 06:08 Follow up: Response: No adverse reaction; IV Status: Infusion continued upon admission al5 03:44 Drug: Cefepime IVPB 2 grams IVPB at 200 ml/hr once over 30 mins; (mix in NS 100 mL) al5 Route: IVPB; Rate: 200 ml/hr; Infused Over: 30 mins; Site: left antecubital; 04:38 Follow up: Response: No adverse reaction; IV Status: Completed infusion; IV Intake: al5 100ml 05:23 Follow up: Response: No adverse reaction al5 04:38 Drug: vancoMYCIN IVPB 2 grams IVPB at calculated rate once Route: IVPB; Rate: al5 calculated rate; Site: left antecubital; 05:22 Follow up: IV Status: Infusion continued upon admission al5 Disposition Summary: 12/26/23 05:00 Hospitalization Ordered Notes: Hospitalization Status: Observation sp4 Provider: Ten Yip sp4 Location: Telemetry/MedSurg (observation) sp4 Condition: Stable sp4 Problem: new sp4 Symptoms: have improved sp4 Bed/Room Type: Standard sp4 Room Assignment: 221(12/26/23 05:12) vk Diagnosis - Sepsis, unspecified organism sp4 - Acute enteritis, nausea vomiting, moderate dehydration, sepsis without septic shock sp4 Discharge Instructions: - Discharge Summary Sheet sp4 Forms: - Medication Reconciliation Form sp4 - SBAR form sp4 - Leadership Thank You Letter sp4 Prescriptions: - ondansetron 8 mg Oral Tablet,disintegrating - take 1 tablet ORAL route every 8 hours PRN nausea; 30 tablet; Refills: 0, sp4 Product Selection Permitted Signatures: Dispatcher [employer] EDMS Yasmin Roper RN RN ha1 Yg Ordonez MD MD sp4 Radha Dotson Amanda, RN RN al5 Corrections: (The following items were deleted from the chart) 00:47 00:45 Home Meds: losartan 100 mg Oral tab 1 tab once daily; al5 al5 00:55 00:55 BLOOD CULTURE*+BA.LAB.BRZ ordered. EDMS EDMS 02:00 02:00 Chest Abdomen Pelvis Wo Con+CT.RAD.BRZ ordered. EDMS EDMS 05:12 05:00 sp4 vk
[2023-12-26] MEDS ORDERED: ACETAMINOPHEN 325 MG TABLET PO PRN (05:06)
--- NOTE | 2023-12-26 05:07 | RAD REPORT ---
EXAM: CT Chest, Abdomen and Pelvis Without Intravenous Contrast CLINICAL HISTORY: The patient is 83 years old and is Male; ABDOMINAL DISTENTION TECHNIQUE: Axial computed tomography images of the chest, abdomen and pelvis without intravenous co ntrast. Sagittal and coronal reformatted images were created and reviewed. This CT exam was performed using one or more of the following dose reduction techniques: automated exposure control, adjustment of the mA and/or kV according to patient size, and/or use of iterative reconstruction technique. COMPARISON: No relevant prior studies available. FINDINGS: CHEST: Lungs: Unremarkable. No mass. No consolidation. Pleural space: Unremarkable. No significant effusion. No pneumothorax. Heart: Unremarkable. No cardiomegaly. No significant pericardial effusion. No significant c oronary artery calcifications. Thyroid: Heterogeneous right thyroid. ABDOMEN: Liver: Hepatomegaly with diffuse hepatic steatosis. Gallbladder and bile ducts: Unremarkable. No calcified stones. No ductal dilation. Pancreas: Unremarkable. No ductal dilation. Spleen: Unremarkable. No splenomegaly. Adrenals: Unremarkable. No mass. Kidneys and ureters: Simple cysts in the right kidney. No follow-up imaging is recommended. Intermediate attenuation 1.3 cm lesion in the mid right kidney which is nonspecific but may r epresent a hemorrhagic or proteinaceous cyst. No obstructing stones. Stomach and bowel: Sigmoid diverticulosis. Scattered colonic diverticula. No obstruction. No mucosal thickening. PELVIS: Appendix: The appendix is normal. Bladder: Unremarkable. No stones. Reproductive: Unremarkable as visualized. CHEST, ABDOMEN and PELVIS: Intraperitoneal space: Unremarkable. No significant fluid collection. No free air. Bones/joints: Unremarkable. No acute fracture. No dislocation. Soft tissues: Unremarkable. Vasculature: Scattered atherosclerotic vascular calcifications. No aortic aneurysm. Lymph nodes: Unremarkable. No enlarged lymph nodes. IMPRESSION: No acute findings in the chest, abdomen or pelvis. Additional non-emergent findings as above. Electronically signed by: Dk Ledbetter MD 12/26/2023 04:55 AM CDT 8 Due to temporary technical issues with the PACS/Promodity reporting system, reports are being michelle d by the in-house radiologist without review as a courtesy to ensure prompt reporting the interpreting radiologist is fully responsible for the content of the report. Transcribed Date/Time: 12/26/2023 5:07 AM
--- NOTE | 2023-12-26 05:09 | P.HP ---
Certification for Inpatient Patient admitted to: Inpatient With expected LOS: >2 Midnights Practitioner: I am a practitioner with admitting privileges, knowledge of patient current condition, hospital course, and medical plan of care. Services: Services provided to patient in accordance with Admission requirements found in Title 42 Section 412.3 of the Code of Federal Regulations Patient History Date of Service: 12/26/23 Reason for admission: Nausea / Vomitig , Abdominal Pain History of Present Illness: 83 yrs old Male with past medical history of hypertension, h yperlipidemia, neuropathy, diabetes, GERD, prostate cancer, Sjogren's disease, history of diverticulitis previously came in with abdominal discomfort and associated with nausea and vomiting which started yesterday and has been progressively worsening and was brought to ER. Associated with abdominal discomfort and pain. Denies any fever or chills. No sick contacts. Patient was assessed in the ER and was found to have elevated lactic acid and possible sepsis and is admitted for further management; Allergies No Known Drug Allergies Allergy (Verified 02/17/23 23:17) none lactose Adverse Reaction (Verified 07/24/20 09:07) Nausea/Vomiting Home medications list reviewed: Yes Home Medications: Gabapentin [Neurontin*] 100 mg PO DAILY 06/01/19 Omeprazole 20 mg PO DAILY 06/01/19 Pilocarpine HCl 1 tab PO DAILY 06/01/19 Pioglitazone [Actos*] 1 tab PO DAILY 06/01/19 Simvastatin 20 mg PO DAILY 06/01/19 Metoprolol Tartrate 75 mg PO DAILY 07/22/20 Tamsulosin [Flomax*] 0.4 mg PO DAILY 07/22/20 ALPRAZolam [Alprazolam] 0.5 mg PO DAILY PRN #30 tab 02/20/23 ALPRAZolam [Xanax] 0.5 mg PO BID PRN #30 tab 02/20/23 Albuterol Inhaler [Ventolin Inhaler*] 2 puff IH Q6H PRN #1 inh 02/20/23 Albuterol Inhaler [Ventolin Inhaler*] 2 puff IH Q6H PRN 30 Days #1 gm 02/20/23 Cefdinir [Cefdinir*] 300 mg PO BID #14 cap 02/20/23 Cefdinir [Cefdinir*] 300 mg PO BID #14 cap 02/20/23 Doxycycline Hyclate 100 mg PO BID 7 Days #14 mg 02/20/23 Furosemide [Lasix] 40 mg PO DAILY #30 tab 02/20/23 Furosemide [Lasix] 40 mg PO DAILY #30 tab 02/20/23 Losartan Potassium 50 mg PO DAILY #30 tab 02/20/23 Losartan Potassium [Cozaar*] 50 mg PO DAILY #30 mg 02/20/23 Metoprolol Tartrate [Lopressor*] 50 mg PO BID 6AM 6PM #60 tab 02/20/23 Metoprolol Tartrate [Lopressor] 50 mg PO BID 6AM 6PM #60 tab 02/20/23 Potassium Chloride 10 meq PO DAILY #30 tab 02/20/23 Potassium Chloride 10 meq PO DAILY #30 tab 02/20/23 Tamsulosin [Flomax*] 0.4 mg PO DAILY cap 02/20/23 predniSONE [Deltasone] 20 mg PO BID #11 tab 02/20/23 - Past Medical/Surgical History Diabetic: Yes Past Medical History: Reviewed- Non-Contributory -: CKD III (Dr. Miles) -: HTN -: DM II -: Neuropathy -: Prostate Cancer -: Colon Polyps -: Diverticulitis Past Surgical History: Reviewed- Non-Contributory -: none Psychosocial/ Personal History: Patient lives at home with his and is retired - Family History Father -: Heart disease Mother -: Heart disease - Social History Smoking Status: Never smoker Alcohol use: Yes CD- Drugs: No Caffeine use: Yes Review of Systems 10-point ROS is otherwise unremarkable Physical Examination - Vital Signs Temperature: 98.6 F Blood Pressure: 142/72 Pulse: 78 Respirations: 18 Pulse Ox (%): 94 - Physical Exam General: Alert, In no apparent distress, Oriented x3 HEENT: Atraumatic, Normocephalic Neck: Supple Respiratory: Clear to auscultation bilaterally, Normal air movement Cardiovascular: Normal pulses, Regular rate/rhythm, Normal S1 S2 Capillary refill: <2 Seconds Gastrointestinal: Soft and benign, Non-distended, W/out hepatosplenomegaly Musculoskeletal: No clubbing, No swelling Integumentary: No rashes, No tenderness/swelling Neurological: Normal gait, Normal speech, Normal strength at 5/5 x4 extr, Cranial nerves 3-12 intact Lymphatics: No axilla or inguinal lymphadenopathy - Studies Laboratory Data (last 24 hrs) 10/20/24 10/20/24 00:52 00:52 WBC 17.50 H Hgb 14.8 Hct 45.5 Plt Count 256 Sodium 136 Potassium 4.3 BUN 26 H Creatinine 1.62 H Glucose 176 H Total Bilirubin 0.9 AST 18 ALT 38 Alkaline Phosphatase 64 Lipase 108 H Assessment and Plan - Plan Possible enteritis Sepsis IV hydration Monitor closely on telemetry Started on IV antibiotic Will obtain cultures Change antibiotic as per sensitivity Lactic acidosis noted Serial lactic acid levels monitored Will obtain a CT of the abdomen pelvis Hypertension Antihypertensives titrated Continue home medications and titrate as needed Hyperlipidemia Continue statin CKD stage II Monitor renal parameters Electrolytes monitor and replace accordingly Diabetes Insulin sliding scale Accu-Chek before every meal and at bedtime GI/DVT prophylaxis Advanced directive full code Discharge Plan: Home Plan to discharge in: 48 Hours - Advance Directives Does patient have a Living Will: No Does patient have a Durable POA for Healthcare: No - Code Status/Comfort Care Code Status: Full Code Time Spent Managing Pts Care (In Minutes): 48
[2023-12-26] MEDS: NA CHLORIDE 0.9% 1,000 ML IV SCH (06:29)
[2023-12-26 06:31] VITALS: BMI 29.2
[2023-12-26] MEDS ORDERED: ONDANSETRON 4 MG/2 ML VIAL IV PRN (08:00)
--- NOTE | 2023-12-26 09:08 | P.PN ---
Date of Service: 12/26/23 83 yrs old Male with past medical history of hypertension, hyperlipidemia, neuropathy, diabetes, GERD, prostate cancer, Sjogren's disease, history of diverticulitis previously came in with abdominal discomfort and associated with nausea and vomiting which started yesterday and has been progressively worsening and was brought to ER. Evaluated in the a.m., vital signs are stable, He was noted to have enteritis, sepsis, lactic acidosis,Improved with as needed analgesics, antiemetics, IV fluids, antibiotics, lactic acidosis resolved, CT of the abdomen pelvis No acute findings in the chest, abdomen or pelvis. Additional non-emergent findings as above. Vasculature: Scattered atherosclerotic vascular calcifications.Simple cysts in the right kidney, Sigmoid diverticulosis. Scattered colonic diverticula.
[2023-12-26] MEDS: PIPER TAZO 3.375 GM in NA CHLORIDE 0.9% 100 ML IV SCH (10:34)
[2023-12-26] MEDS: ENOXAPARIN 40 MG/0.4 ML SQ SCH (10:37)
[2023-12-26 11:24] VITALS: O2SAT 100
[2023-12-26 14:16] LABS: Absolute Basophils 0.1 K/uL (0-0.5); Absolute Eosinophils 0.1 K/uL (0-0.5); Absolute Lymphocytes (CBC) 2.2 K/uL (0.7-4.9); Absolute Monocytes 0.9 K/uL (0.1-1.3); Absolute Neutrophil 7.3 K/uL (1.8-8.0); Basophils % 0.5 % (0-1.3); Eosinophils % 1.4 % (0-4.4); Hemoglobin 13.1 g/dL (13.6-17.9); Lymphocytes % 20.3 % (15.3-44.8); MCH 29.8 pg (27.0-35.0); MCHC 32.8 g/dL (32.0-36.0); MPV 8.1 fL (7.6-11.3); Monocytes % 8.9 % (3.3-12.3); Neutrophils % 68.9 % (41.7-73.7); Platelets 230 thou/uL (152-406); Red Cell Distribution Width 13.8 % (12.1-15.2)
[2023-12-26 14:32] LABS: Anion Gap 12.1 mEq/L (5.0-15.0); Potassium 4.1 mEq/L (3.5-5.1)
--- NOTE | 2023-12-26 14:47 | P.CNS ---
Date of Consult: 12/26/23 Reason for Consult: AUGUSTO/ CKD Requesting Physician: Rola Orozco Chief Complaint: Nausea / Vomitig , Abdominal Pain History of Present Illness: 83 yrs old Male with past medical history of hypertension, hyperlipidemia, neuropathy, diabetes, GERD, prostate cancer, Sjogren's disease, history of diverticulitis previously came in with abdominal discomfort and associated with nausea and vomiting which started yesterday and has been progressively worsening and was brought to ER. Associated with abdominal discomfort and pain. Denies any fever or chills. No sick contacts. Patient was assessed in the ER and was found to have elevated lactic acid and possible sepsis and is admitted for further management; [id number] 00:37 This 83 yrs old Male presents to ER via Unassigned with complaints of sp4 Nausea/Vomiting. 05:00 Patient is a very pleasant man with history of diabetes, acid reflux, diverticulitis, sp4 hyperlipidemia, hypertension neuropathy. Patient presents with acute onset of abdominal discomfort and profuse vomiting at home. . 05:01 Patient's medications at home include gabapentin, losartan, omeprazole, pilocarpine, sp4 pioglitazone, simvastatin, metoprolol, tamsulosin He reports feeling much better after vomiting. He denies NSAIDs. He reports a slow stream. He is followed by urology for a slow growing prostate cancer. Allergies lactose Adverse Reaction (Verified 07/24/20 09:07) Nausea/Vomiting Home medications list reviewed: Yes Home Medications: Omeprazole 20 mg PO DAILY 06/01/19 Pilocarpine HCl 1 tab PO DAILY 06/01/19 Pioglitazone [Actos*] 1 tab PO DAILY 06/01/19 Metoprolol Tartrate 75 mg PO DAILY 07/22/20 Losartan Potassium [Cozaar*] 100 mg PO DAILY 12/26/23 Ondansetron [Zofran] 4 mg PO Q6H PRN #20 tab 12/26/23 - Past Medical/Surgical History Diabetic: Yes -: CKD III (Dr. Miles) -: HTN -: DM II with Polyneuropathy -: Prostate Cancer -: Colon Polyps -: Diverticulitis -: Multiple Prostate Biopsies Psychosocial/ Personal History: Patient lives at home with his and is reti red - Family History Father Medical History: Heart disease Mother Medical History: Heart disease - Social History Smoking Status: Former smoker Alcohol use: Yes CD- Drugs: No Caffeine use: Yes Place of Residence: Home Review of Systems 10-point ROS is otherwise unremarkable General: Malaise Gastrointestinal: Nausea, Vomiting Physical Examination Temp Pulse Resp BP Pulse Ox 97.6 F 59 16 149/68 H 100 12/26/23 12:00 12/26/23 12:00 12/26/23 12:00 12/26/23 12:00 12/26/23 12:00 General: In no apparent distress, Oriented x3, Cooperative HEENT: Atraumatic Neck: Supple Respiratory: Clear to auscultation bilaterally, Normal air movement Cardiovascular: No edema, Regular rate/rhythm Gastrointestinal: Soft and benign, Non-distended Musculoskeletal: No clubbing, No contractures Integumentary: No rashes, No cyanosis Neurological: Normal speech Laboratory Data (last 24 hrs) 12/26/23 12/26/23 00:52 00:52 WBC 17.50 H Hgb 14.8 Hct 45.5 Plt Count 256 Sodium 136 Potassium 4.3 BUN 26 H Creatinine 1.62 H Glucose 176 H Total Bilirubin 0.9 AST 18 ALT 38 Alkaline Phosphatase 64 Lipase 108 H Imagings Data: [id number] XR Chest, 1 View CLINICAL HISTORY: Chest pain. TECHNIQUE: Frontal view of the chest. COMPARISON: XR Chest 02/17/2023. FINDINGS: Lungs: Unremarkable. No consolidation. Pleural space: Unremarkable. No pneumothorax. Heart: Unremarkable. No cardiomegaly. Mediastinum: Unremarkable. Normal mediastinal contour. Bones/joints: Unremarkable. No acute fracture. IMPRESSION: No acute disease. [id number] EXAM: CT Chest, Abdomen and Pelvis Without Intravenous Contrast CLINICAL HISTORY: The patient is 83 years old and is Male; ABDOMINAL DISTENTION TECHNIQUE: Axial computed tomography images of the chest, abdomen and pelvis without intravenous contrast. Sagittal and coronal reformatted images were created and reviewed. This CT exam was performed using one or more of the following dose reduction techniques: automated exposure control, adjustment of the mA and/or kV according to patient size, and/or use of iterative reconstruction technique. COMPARISON: No relevant prior studies available. FINDINGS: CHEST: Lungs: Unremarkable. No mass. No consolidation. Pleural space: Unremarkable. No significant effusion. No pneumothorax. Heart: Unremarkable. No cardiomegaly. No significant pericardial effusion. No significant coronary artery calcifications. Thyroid: Heterogeneous right thyroid. ABDOMEN: Liver: Hepatomegaly with diffuse hepatic steatosis. Gallbladder and bile ducts: Unremarkable. No calcified stones. No ductal dilation. Pancreas: Unremarkable. No ductal dilation. Spleen: Unremarkable. No splenomegaly. Adrenals: Unremarkable. No mass. Kidneys and ureters: Simple cysts in the right kidney. No follow-up imaging is recommended. Intermediate attenuation 1.3 cm lesion in the mid right kidney which is nonspecific but may represent a hemorrhagic or proteinaceous cyst. No obstructing stones. Stomach and bowel: Sigmoid diverticulosis. Scattered colonic diverticula. No obstruction. No mucosal thickening. PELVIS: Appendix: The appendix is normal. Bladder: Unremarkable. No stones. Reproductive: Unremarkable as visualized. CHEST, ABDOMEN and PELVIS: Intraperitoneal space: Unremarkable. No significant fluid collection. No free air. Bones/joints: Unremarkable. No acute fracture. No dislocation. Soft tissues: Unremarkable. Vasculature: Scattered atherosclerotic vascular calcifications. No aortic aneurysm. Lymph nodes: Unremarkable. No enlarged lymph nodes. IMPRESSION: No acute findings in the chest, abdomen or pelvis. Additional non-emergent findings as above. Conclusions/Impression: Stage I AUGUSTO may be due to hypovolemia CKD III with Hx of Proteinuria -No NSAIDs -Change IVF to 1/2NS HTN with CKD -Restart home antihypertensives as indicated -Hydralazine prn DM II with CKD -RISS prn Prostate Cancer Enlarged Prostate with LUTS -Start tamsulosin daily Hospitalist and ER notes reviewed Thank you kindly for the consultation
[2023-12-26] MEDS ORDERED: HYDRALAZINE HCL 20 MG/ML VIAL IV PRN (15:48)
[2023-12-26] MEDS ORDERED: TAMSULOSIN 0.4 MG SR CAP PO SCH (16:00)
[2023-12-26] MEDS ORDERED: NACHLORIDE 0.45% 1,000 ML IV SCH (16:00)
[2023-12-26 16:28] VITALS: BP 155/74; TEMP 97.8
[2023-12-26] MEDS ORDERED: LACTOBACILLUS/ACIDOPHILUS TAB PO SCH (17:30)
--- NOTE | 2023-12-27 11:38 | P.DS ---
Admission Date: 12/26/23 Discharge Date: 12/26/23 Disposition: ROUTINE DISCHARGE Discharge Condition: GOOD Reason for Admission: Nausea / Vomitig , Abdominal Pain Brief History of Present Illness: 83 yrs old Male with past medical history of hypertension, hyperlipidemia, neuropathy, diabetes, GERD, prostate cancer, Sjogren's disease, history of diverticulitis previously came in with abdominal discomfort and associated with nausea and vomiting which started yesterday and has been progressively worsening and was brought to ER. Associated with abdominal discomfort and pain. Denies any fever or chills. No sick contacts. Patient was assessed in the ER and was found to have elevated lactic acid and possible sepsis and is admitted for further management; - Physical Exam General: Alert, In no apparent distress, Oriented x3 HEENT: Atraumatic, Normocephalic Neck: Supple Respiratory: Clear to auscultation bilaterally, Normal air movement Cardiovascular: Normal pulses, Regular rate/rhythm, Normal S1 S2 Capillary refill: <2 Seconds Gastrointestinal: Soft and benign, Non-distended, W/out hepatosplenomegaly Musculoskeletal: No clubbing, No swelling Integumentary: No rashes, No tenderness/swelling Neurological: Normal gait, Normal speech, Normal strength at 5/5 x4 extr, Cranial nerves 3-12 intact Hospital Course: 83 yrs old Male with past medical history of hypertension, hyperlipidemia, neuropathy, diabetes, GERD, prostate cancer, Sjogren's disease, history of diverticulitis previously came in with abdominal discomfort and associated with nausea and vomiting which started yesterday and has been progressively worsening He wasnoted to have Possible enteritis, nausea, vomiting, symptoms resolved with IV fluids, PRN ant emetics, tolerating diet. stable to dischargehome. DC medications zoforan Assessment abdominal discomfort and associated with nausea resolved gastroenteritis, resolved Hyperlipidemia, Hypertension resume home meds CKD stage III- neph consulted Diabetes resume home meds after discharge HX Prostate Cancer, resume tamsulosin Continue home medicines as previously prescribed GOAL: Clear understanding of disease process INSTRUCTIONS: Physician Discharge Instructions: -Follow-up with cardiology after discharge -Follow-up with PCP in 1 to 2 weeks -Please call Dr. Orozco at [phone] if any questions regarding hospital stay -Please call nursing station at [phone] if any nursing or medication questions -Return to the emergency room if symptoms worsen Diet: ADA, low sodium Activity: Fall precautions Vital Signs/Physical Exam: Temp Pulse Resp BP Pulse Ox 97.8 F 67 16 155/74 H 100 12/26/23 16:00 12/26/23 16:00 12/26/23 16:00 12/26/23 16:00 12/26/23 16:00 Laboratory Data at Discharge: WBC 10.60 thou/uL (4.3-10.9) 12/26/23 13:47 Hgb 13.1 g/dL (13.6-17.9) L D 12/26/23 13:47 Hct 40.0 % (39.6-49.0) 12/26/23 13:47 Plt Count 230 thou/uL (152-406) 12/26/23 13:47 Sodium 141 mEq/L (136-145) D 12/26/23 13:47 Potassium 4.1 mEq/L (3.5-5.1) 12/26/23 13:47 BUN 23 mg/dL (7-18) H 12/26/23 13:47 Creatinine 1.65 mg/dL (0.70-1.30) H 12/26/23 13:47 Glucose 109 mg/dL (74-106) H 12/26/23 13:47 Total Bilirubin 0.9 mg/dL (0.2-1.0) 12/26/23 00:52 AST 18 U/L (15-37) 12/26/23 00:52 ALT 38 U/L (16-61) 12/26/23 00:52 Alkaline Phosphatase 64 U/L (45-117) 12/26/23 00:52 Lipase 108 U/L (13-75) H 12/26/23 00:52 Home Medications: Omeprazole 20 mg PO DAILY 06/01/19 Pilocarpine HCl 1 tab PO DAILY 06/01/19 Pioglitazone [Actos*] 1 tab PO DAILY 06/01/19 Metoprolol Tartrate 75 mg PO DAILY 07/22/20 Losartan Potassium [Cozaar*] 100 mg PO DAILY 12/26/23 Ondansetron [Zofran] 4 mg PO Q6H PRN #20 tab 12/26/23 New Medications: Ondansetron [Zofran] 4 mg PO Q6H PRN #20 tab PRN Reason: Nausea / Vomiting Physician Discharge Instructions: -OK to DC IV and DC home -Follow-up with Nephrology in 2-4 weeks after discharge -Follow-up with GI after discharge for colonoscopy -Follow-up with PCP in 1 to 2 weeks -Please call Dr. Orozco at [phone] if any questions regarding hospital stay -Please call nursing station at [phone] if any nursing or medication questions -Return to the emergency room if symptoms worsen Diet: Regular Activity: Fall precautions Followup: Alejandra Miles MD [Primary Care Provider] - 1 Week Charles Cuadra MD [OUTSIDE PHYSICIAN] - 1-2 Weeks (call to set up for scope)
--- NOTE | 2023-12-28 12:57 | EKG ---
Test Date: 2023-12-26 Test Time: 00:57:14 [employer]visor [employer]: MEASUREMENT RESULTS: Intervals: Rate: 69 IA: 148 QRSD: 74 QT: 398 QTc: 426 [place]: P: 56 IA: 148 QRS: 39 T: 58 INTERPRETIVE STATEMENTS: Normal sinus rhythm Normal ECG Compared to ECG 02/17/2023 17:43:19 No significant changes Electronically Signed On 12-28-23 12:51:26 CDT by Justen Bejarano
== END 2023-12-26 16:52 | disposition home or self-care (01) ==
LOC: ER 00:08 → 2ND 05:06 → INTOOBSV 05:06
PROVIDERS: ADMIT Family Medicine; ATTEND Hospitalist
DX: K52.9 Noninfective gastroenteritis and colitis, unspecified (principal); R10.9 Unspecified abdominal pain; R11.2 Nausea with vomiting, unspecified; N17.9 Acute kidney failure, unspecified; I12.9 Hypertensive chronic kidney disease with stage 1 through stage 4 chronic kidney disease, or unspecified chronic kidney disease; E11.22 Type 2 diabetes mellitus with diabetic chronic kidney disease; N18.30 Chronic kidney disease, stage 3 unspecified; E78.5 Hyperlipidemia, unspecified; N18.2 Chronic kidney disease, stage 2 (mild); E11.40 Type 2 diabetes mellitus with diabetic neuropathy, unspecified; K57.90 Diverticulosis of intestine, part unspecified, without perforation or abscess without bleeding; N28.1 Cyst of kidney, acquired; E87.20 Acidosis, unspecified; C61 Malignant neoplasm of prostate; K76.0 Fatty (change of) liver, not elsewhere classified; I70.90 Unspecified atherosclerosis; Z91.011 Allergy to milk products
CPT/HCPCS: 93005; 87040 ×2; 85025 ×2; 81001; 80048; 36415; 82947 ×3; 83605 ×2; 84484; 83690; 80053; 71250; 74176; 71045; J2765; J2543; J1650; J0692; J2405; J7040 ×2; J7030; G0378 ×2